=== PATIENT | female | born 1955 | race Caucasian/White ===

== ENCOUNTER 2017-01-02 13:28 | Inpatient (IN) | payer OTHER ==
--- NOTE | ~2017-01-02 | CN ---
Consultation Report [facility] [address] [place]. [address] NAME: RUPAL CHAN : 57 STATUS : ADM IN PAT#: [id number] AGE: 61 ADM/REG DATE : 01/02/17 MR#: [id number] REPORT SERV DATE: 01/08/17 DICTATED BY: BOYD WHITEHEAD DATE: 01/08/17 REPORT STATUS : Draft TRANSCRIBED BY: KEARA DATE: 01/08/17 PSYCHIATRIC CONSULTATION DATE OF CONSULTATION: 01/08/2017 I reviewed this patient's medical record. I discussed the patient's status with Dr. Lozano, who is her current hospitalist. HISTORY OF PRESENT ILLNESS: She was admitted with a flare-up of ulcerative colitis. I was asked to address depression. Apparently when Dr. Lozano saw this patient one or two days ago, she was tearful. The patient now explains that she was reacting to this newly diagnosed condition and to its persistence in spite of treatment. It is having a major impact on her lifestyle. PAST PSYCHIATRIC HISTORY: No preexisting psychiatric illness. SOCIAL HISTORY: She is single. She lives alone. She has one son and two grandchildren. She has a very active lifestyle. 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 She is also very involved with political organizations. FAMILY HISTORY: No psychiatric illness. MENTAL STATUS: She was very pleasant and cooperative in attitude. Her mood was somewhat saddened by the ongoing medical issues. Her affect was full and appropriate. Her thinking was logical. She had no delusions. She had no hallucinations. She was oriented to time, place, and person. She demonstrated good recent and remote memory. DIAGNOSIS: Depression, associated with newly diagnosed ulcerative colitis. RECOMMENDATIONS: Solu-Medrol might be contributing to her mood issues. I see no need for further psychiatric intervention. I will sign off. IZZY/KEARA Boyd Whitehead M.D. / [id number] CC: eKlli Lozano M.D. NO PCP
--- NOTE | ~2017-01-02 | DS ---
Discharge Summary [facility] [address] [place]. [address] NAME: RUPAL CHAN : 57 STATUS : ADM IN [facility]#: [id number] AGE: 61 ADM/REG DATE : 01/02/17 MR#: [id number] REPORT SERV DATE: 01/08/17 DICTATED BY: KELLI TAMEZ DATE: 01/07/17 REPORT STATUS : Draft TRANSCRIBED BY: MODL DATE: 01/07/17 ADMISSION DATE: 01/02/2017 DISCHARGE DATE: INTERIM DISCHARGE DIAGNOSES: Currently include, 1. Severe ulcerative colitis exacerbation. 2. Persistent nausea, vomiting, and diarrhea with bright blood per rectum. 3. Dehydration, resolved. 4. History of hypertension. 5. Hypothyroidism. 6. Anxiety disorder. 7. Steroid-induced hyperglycemia. 8. Upper respiratory infection. CONSULTANTS ON THE CASE: Dr. Murray, GI as well as Dr. Barnard, GI; Dr. Diaz, Surgery. PROCEDURES DONE DURING THIS HOSPITALIZATION: None. TESTS DONE DURING THIS HOSPITALIZATION: Include a CT scan of the abdomen and pelvis on 01/02/2017 showing significant diffuse colitis, much more progressive since beginning of the December 2016, but no evidence for abscess or perforation. The patient stools have been negative for bacterial pathogens, C. diff as well. HOSPITAL COURSE: This is a very pleasant 61-year-old female that she has recently diagnosed with severe ulcerative colitis. She initially saw Dr. Gibbs at the beginning of December for abdominal pain, nausea, and vomiting. Her symptoms have been occurring several months prior to admission. She ultimately underwent an EGD and colonoscopy by Dr. Murray on the 12/14/2016. EGD showed normal exam with gastric biopsies taken for H. pylori which were negative. She had also a colonoscopy that has shown that the patient has inflammatory bowel disease. The patient's pathology showed chronic colitis with moderate activity. She was discharged on steroids as well as Lialda. However, at discharge, she was transferred over to [facility]. The patient says that she has taken medications, however, her symptoms recurred, and as a result, she had become severely dehydrated with ongoing nausea, vomiting, diarrhea, multiple bowel movements, and she also has had a syncopal episode as a result of that. She has been admitted to [facility] on 01/02/2017. For further details, please see history and physical of Dr. Kelli Tamez. The patient has been placed on IV steroids and IV antibiotics. She also has been placed on Lialda and a GI consult as well as a Surgery consult has been requested. The patient's symptoms, however, did not improve that much. She has been advanced on her diet, but she still experienced intermittent nausea and vomiting. The patient may need an alpha-TNF agent and QuantiFERON gold test has been sent and that is awaiting. Currently it is questionable, if the patient might need to be started on Humira while she is here in hospital. It is also very important to note that the patient has significant anxiety disorder and depression. We are going to ask Dr. Fowler from Psychiatry Service to evaluate the patient for further recommendation. Discharge Summary [address] [place]. [address] NAME: RUPAL CHAN : 57 STATUS : ADM IN [facility]#: [id number] AGE: 61 ADM/REG DATE : 01/02/17 MR#: [id number] REPORT SERV DATE: 01/08/17 DICTATED BY: KELLI TAMEZ DATE: 01/07/17 REPORT STATUS : Draft TRANSCRIBED BY: KEARA DATE: 01/07/17 MEDICATIONS: Currently, medications at thisinterim discharge summary include Norvasc, Bentyl, Flonase, folic acid, Synthroid, Lialda, Solu-Medrol, Zofran, Protonix, Levaquin, Flagyl as well as Reglan. My partner is going to start seeing Ms Cedric Mckenzie from 01/09/2017. CF/MODL Kelli Tamez M.D. / [id number] CC: Kelli Tamez M.D.
--- NOTE | ~2017-01-02 | HP ---
History And Physical [place] [id number] [facility] [place]. [address] NAME: RUPAL CHAN : 57 STATUS : ADM IN [facility]#: [id number] AGE: 61 ADM/REG DATE : 01/02/17 MR#: [id number] REPORT SERV DATE: 01/02/17 DICTATED BY: KELLI LOZANO DATE: 01/02/17 REPORT STATUS : Draft TRANSCRIBED BY: MODL DATE: 01/02/17 DATE OF ADMISSION: 01/02/2017 CHIEF COMPLAINT: Intractable diarrhea, nausea, vomiting, dehydration, and syncope today. HISTORY OF PRESENT ILLNESS: This is a very pleasant 61-year-old female. She has a past medical history significant for recently diagnosed ulcerative colitis, hypothyroidism, prior history of peptic ulcer disease, and prior history of internal hemorrhoids, who has been presenting today to [facility] after she has been feeling extremely sick with intractable nausea, vomiting, and inability to keep anything down since last night. It is important to note that at the beginning of the month, she has been diagnosed with severe ulcerative colitis. She has been seen by GI. She had a colonoscopy and EGD. Her upper GI showed only active gastritis and colon biopsy showed chronic colitis with moderate activity. She has been discharged home on Colazal and Lialda, which she could not afford to buy as well as steroids that the patient she thinks make her sick and she kept having continuous intractable diarrhea with red blood per rectum, some abdominal discomfort and also since yesterday, nausea and vomiting. No hematemesis, melena, subjective chills. She has actually today had an episode of syncope while she was going into the kitchen, she passed out for a short period of time. She says that her diarrhea is relentless and she could not keep anything down. Because of her diarrhea, she lost significant weight since she has been diagnosed with ulcerative colitis. The patient denied any chest pain or increasing shortness of breath. No PND. No orthopnea but she has felt extremely weak and dizzy especially upon walking. The patient was supposed to see Dr. Diaz, her surgeon today but because of the ongoing nausea, vomiting, diarrhea as well as a syncopal episode, she decided to come to [facility] for further evaluation and treatment. Also noted today she took Prinivil this morning although her pressure was 136. She does not take Prinivil on a regular basis. Her pressure is well controlled, however, she did take her Prinivil this morning and as a result, the patient's pressure was dropping. The patient has been evaluated, as I said, in the emergency room and Hospitalist Service has been asked for admission, further evaluation, and treatment. PAST MEDICAL HISTORY: Significant for ulcerative colitis, hypothyroidism, and prior medical history of hypertension. PAST SURGICAL HISTORY: Significant for cervical cancer removal. SOCIAL HISTORY: Denies tobacco, alcohol, or IV drugs. FAMILY HISTORY: Significant for Crohn's disease and hypertension. MEDICATIONS: At home include Colazal; levothyroxine; prednisone; vitamin B12; fish oil; and vitamin D3 capsule. REVIEW OF SYSTEMS: A 14-point review of systems has been obtained and pertinent positive has been listed into the history. History And Physical [address] [address] NAME: RUPAL CHAN : 57 STATUS : ADM IN [facility]#: [id number] AGE: 61 ADM/REG DATE : 01/02/17 MR#: [id number] REPORT SERV DATE: 01/02/17 DICTATED BY: KELLI LOZANO DATE: 01/02/17 REPORT STATUS : Draft TRANSCRIBED BY: KEARA DATE: 01/02/17 PAST FAMILY HISTORY: Significant for hypertension and Crohn's disease. ALLERGIES: SHE IS ALLERGIC TO [employer] FAMILY. PHYSICAL EXAMINATION: VITAL SIGNS: The patient is afebrile. On arrival her pressure was 84/50, currently 115/50, heart rate 91, respiratory rate 18, saturating 94% on room air. GENERAL: She is a very pleasant, well-developed, well-nourished female, slightly anxious, in no acute distress. She is alert and oriented x3. Nonfocal. She follows all her commands appropriately. HEENT: Show pupils equal, round, and reactive to light. Extraocular movements intact. No JVD. No lymphadenopathy. No thyromegaly appreciated. CHEST: Evaluation shows bilateral air entry. Clear anteroposterior. No wheezes, crackles, or rhonchi appreciated. CARDIOVASCULAR: She has regular rate and rhythm. S1, S2 positive. No S3, no S4. No murmurs, rubs, or gallops appreciated. ABDOMEN: Soft, mildly tender. No guarding. No rebound. EXTREMITIES: No clubbing, cyanosis, or edema. NEUROLOGIC: She is alert and oriented x3. Nonfocal. She follows all her commands appropriately. LABORATORY DATA: Labs from today include sodium 138, potassium 2.5, chloride 97, CO2 of 28, BUN 10, creatinine 0.84. Glucose is 118. Total bilirubin is 0.55, alkaline phosphatase 53, ALT 16, AST 12, and lipase 113. Her white count is 7.7, hemoglobin 12.8, hematocrit 39.5, and platelets are 304. Her blood cultures are currently pending. Initial EKG shows no acute abnormalities. Chest x-ray is pending. ASSESSMENT AND PLAN: This is a very pleasant 61-year-old female with 1. Ulcerative colitis exacerbation with ongoing diarrhea, hematochezia, nausea, vomiting, and severe dehydration. 2. Diarrhea with nausea and vomiting. 3. Abdominal pain. 4. Hematochezia. 5. Hypotension, likely multifactorial. 6. Syncope, likely secondary to dehydration and hypotension. 7. Hypothyroidism. PLAN: 1. The patient is going to be admitted to Hospitalist Service. Vigorous IV hydration. Keep her n.p.o., place her on Protonix IV. Also start her on IV steroids and IV antibiotics. Check all her stools, pancultures, also stool for cultures, bacterial pathogen, fecal leukocytes, ova and parasites. We are going to consult GI for further recommendation as well. We will get a CAT scan of the abdomen and pelvis without contrast. 2. Hypotension likely multifactorial, most likely secondary to dehydration, possible infection. We are going to place her on broad-spectrum antibiotics. We are going to History And Physical [address] [address] NAME: RUPAL CHAN : 57 STATUS : ADM IN PAT#: [id number] AGE: 61 ADM/REG DATE : 01/02/17 MR#: [id number] REPORT SERV DATE: 01/02/17 DICTATED BY: KELLI LOZANO DATE: 01/02/17 REPORT STATUS : Draft TRANSCRIBED BY: MODSheela DATE: 01/02/17 give her stress doses of steroids since she is on chronic steroids at home. We are going to check her stools and get a CAT scan of the abdomen and pelvis without contrast. 3. Hypothyroidism. We will continue her home medications. 4. Hypokalemia. We will replace her electrolytes. We will provide reasonable pain and nausea control as well as GI and DVT prophylaxis with SCDs. That has been discussed extensively with the patient. All the questions have been answered in full. Further workup and recommendation pending above. CF/MODL Kelli Lozano M.D. / [id number] CC: Kelli Lozano M.D.
--- NOTE | ~2017-01-02 | DS ---
Discharge Summary [facility] [address] [place]. [address] NAME: RUPAL CHAN : 57 STATUS : DIS IN PAT#: [id number] AGE: 61 ADM/REG DATE : 01/02/17 MR#: [id number] REPORT SERV DATE: 01/13/17 DICTATED BY: MYNOR FERNANDEZ DATE: 01/12/17 REPORT STATUS : Draft TRANSCRIBED BY: MODL DATE: 01/12/17 ADMISSION DATE: 01/02/2017 DISCHARGE DATE: 01/12/2017 PCP: None. Used to be Dr. Albarran, however, she prefers to be going to our [facility]. CONSULTING PHYSICIAN: Ivory Diaz M.D. for Surgery; Dirk HOUGH for GI, Torie Keene M.D. Consulting physician, also Dr. Fowler for Psychiatry. FINAL DIAGNOSES: 1. Ulcerative colitis, exacerbation. 2. Nausea and vomiting, improved. 3. Hypertension. 4. Hypokalemia. 5. Hypophosphatemia. 6. Status post dehydration and syncope. 7. Hypothyroidism. 8. Noncompliance. HOSPITAL COURSE: Please refer to the H and P done by Dr. Kelli Lozano on 01/02/2017 and her interim discharge summary done on 01/08/2017. Since I took care of this patient, the patient has not been compliant even with the hospital medications saying that she gets nauseous, abdominal pain, diarrhea with different types of medications. Finally, she was placed on Humira, and the patient says that everything is better now and wants to go home. She said she is going to her parents place and wants a new PCP. GI has been following and they agreed for discharge. They would keep the patient on steroids and Humira and not on any sulfa drugs any more. The patient will be discharged with the above diagnosis. She will be on the following medications. Norvasc 5 mg a day, Levsin 0.125 mg before meals and at bedtime, levothyroxine 137 mcg a day, multivitamin once a day, Nystatin 5 mL every six hours, prednisone taper per GI recommendation, hydrocodone 5/325 one tab p.o. q.4 hours p.r.n. pain, and Xanax 0.25 mg p.o. t.i.d. p.r.n. anxiety. The patient will follow up with our [facility]. Then, follow up with Dr. Keene in two weeks for the second dose of the Humira. This has been explained to the patient, and she agreed and understood the plan. ZACHERY/KEARA Mynor Fernandez M.D. / [id number] CC: Discharge Summary [address] [address] NAME: RUPAL CHAN : 57 STATUS : DIS IN PAT#: [id number] AGE: 61 ADM/REG DATE : 01/02/17 MR#: [id number] REPORT SERV DATE: 01/13/17 DICTATED BY: MYNOR FERNANDEZ DATE: 01/12/17 REPORT STATUS : Draft TRANSCRIBED BY: KEARA DATE: 01/12/17 Mynor Fernandez M.D.
--- NOTE | ~2017-01-02 | CN ---
Consultation Report [facility] [address] [place]. [address] NAME: RUPAL CHAN : 57 STATUS : ADM IN PAT#: [id number] AGE: 61 ADM/REG DATE : 01/02/17 MR#: [id number] REPORT SERV DATE: 01/02/17 DICTATED BY: NAOMI RIVERA DATE: 01/02/17 REPORT STATUS : Draft TRANSCRIBED BY: MODL DATE: 01/02/17 GI CONSULTATION DATE OF CONSULTATION: 01/02/2017 REASON FOR CONSULTATION: Evaluation and management of nausea, vomiting, hematochezia, diarrhea, abdominal pain, and syncopal episode with newly diagnosed ulcerative colitis. HISTORY OF PRESENT ILLNESS: Ms. Chan is a pleasant 61-year-old female patient, who we initially saw on 12/13/2016 as she was admitted by Dr. Diaz for continuous abdominal pain and nausea with vomiting. At that time, she had given a history of several months' symptoms of nausea, vomiting, diarrhea, weight loss, and hematochezia. She ultimately underwent EGD and colonoscopy with Dr. Murray on 12/14/2016. EGD showed normal exam with gastric biopsies being taken for H pylori which were negative. She had a colonoscopy that same day, which showed diffuse severe inflammation in the rectum, sigmoid colon, descending colon, and transverse colon consistent with inflammatory bowel disease which was biopsied. She had nonbleeding internal hemorrhoids. Her pathology showed chronic colitis with moderate activity consistent with inflammatory bowel disease. She was on steroids as well as Lialda; however, at discharge, she was transferred over to [facility]. She is taking what she states is nine tablets a day as insurance will not pay for Lialda. She states that initially on discharge she was doing well. She has had some nausea, however, yesterday she began having extreme nausea and vomiting. She has been having diarrhea for the last one to two weeks. She states all hours of the night multiple bowel movements a day with blood. Left abdominal cramping. She denies fever, chills, or chest pain secondary to her syncopal episode. She was brought into the hospital by a friend. Hemoglobin is 12.8, hematocrit 39.5, white count 10.7. Potassium is 2.5, BUN 10, and creatinine 0.87. I have had a long discussion with her. We will start her on IV steroids and IV antibiotics as well as Lialda. We will discuss with Dr. Murray the possibility of patient having to be started on a biologic at some point in time. CT scan of the abdomen and pelvis has been ordered by the hospitalist, but not taken yet. PAST MEDICAL HISTORY: Hypothyroidism, anxiety, hemorrhoids, peptic ulcer disease, hypertension, and ulcerative colitis, newly diagnosed in 12/2016. SURGICAL HISTORY: Denies. FAMILY HISTORY: Cousin with Crohn disease. Mother and grandmother with colon polyps. SOCIAL HISTORY: Denies alcohol, tobacco, or illicits. ALLERGIES: TO THE [employer] FAMILY. HOME MEDICATIONS: Levothyroxine, Proventil, Zofran, Protonix, prednisone, and Colazal. Consultation Report [address] [place]. [address] NAME: RUPAL CHAN : 57 STATUS : ADM IN [facility]#: [id number] AGE: 61 ADM/REG DATE : 01/02/17 MR#: [id number] REPORT SERV DATE: 01/02/17 DICTATED BY: NAOMI RIVERA DATE: 01/02/17 REPORT STATUS : Draft TRANSCRIBED BY: MODSheela DATE: 01/02/17 REVIEW OF SYSTEMS: A 10-point review of systems has been obtained, being addressed in the history of present illness. PHYSICAL EXAMINATION: VITAL SIGNS: Temperature 98.3, pulse 93, respirations of 16, and blood pressure 84/50. GENERAL: Reveals an alert, female, resting in bed. No focal deficits noted. NEURO: She is cooperative, in no apparent distress. She is awake, alert, oriented x3. HEAD, EARS, EYES, NOSE, AND THROAT: Anicteric. Pupils equal, round, reactive to light and accommodation. Normocephalic and atraumatic. NECK: No JVD. No palpable nodes. Supple. LUNGS: Diminished in the bases. Clear in upper lobes. Normal respiratory effort exhibited. Equal expansion. CARDIOVASCULAR: Regular rate and rhythm S1, S2. No murmurs, rubs, gallops, S3 or S4 appreciated. ABDOMEN: Soft, nontender to palpation to the left side without rebound or guarding. She has active bowel sounds in all four quadrants. No organomegaly appreciated. EXTREMITIES: No edema. Normal distal pulses. SKIN: Warm, dry, and intact. PERTINENT LABORATORY DATA: Sodium 138, potassium 2.5, BUN is 10, creatinine 0.87. White count 10.7, hemoglobin 12.8, hematocrit is 39.5, platelet count 304. ASSESSMENT: 1. Newly diagnosed ulcerative colitis by biopsies proven on 12/14/2016. 2. Nausea with vomiting. 3. Diarrhea with hematochezia secondary to #1. 4. Syncopal episode. 5. Hypertension. 6. Hypokalemia with dehydration. PLAN: 1. We will begin her on Lialda. 2. Continue IV antibiotics started by the hospitalist as well as steroids via IV. 3. We will obtain stool studies. 4. Followup CT scan. 5. Questions if the patient will need to be on biologic in the future. We will go ahead and check hepatitis panel as well as a TB QuantiFERON gold in anticipation of this needing to be done in the future. We will follow. PATRICIA/KEARA Naomi Consultation Report [address] [place]. [address] NAME: RUPAL CHAN : 57 STATUS : ADM IN [facility]#: [id number] AGE: 61 ADM/REG DATE : 01/02/17 MR#: [id number] REPORT SERV DATE: 01/02/17 DICTATED BY: NAOMI RIVERA N DATE: 01/02/17 REPORT STATUS : Draft TRANSCRIBED BY: ANDREWL DATE: 01/02/17 CLAU Powell / [id number] CC: Kelli Lozano M.D.
--- NOTE | ~2017-01-02 | CN ---
Consultation Report [facility] [address] [place]. [address] NAME: RUPAL CHAN : 57 STATUS : ADM IN [facility]#: [id number] AGE: 61 ADM/REG DATE : 01/02/17 MR#: [id number] REPORT SERV DATE: 01/03/17 DICTATED BY: DALTON DIAZ DATE: 01/03/17 REPORT STATUS : Draft TRANSCRIBED BY: MODSheela DATE: 01/03/17 CONSULTATION DATE OF CONSULTATION: 01/03/2017 REASON FOR CONSULTATION: Concern over air in the bladder on CT scan. Rule out colovesicular fistula. HISTORY OF PRESENT ILLNESS: Ms. Chan is a 61-year-old female, who was recently diagnosed with severe ulcerative colitis with biopsies on 12/14/2016 when she was admitted to [facility]. She was discharged after IV steroids on p.o. mesalamine product which she could not afford. She has not been taking her medications because she thinks they "make her sick". Please see Dr. Lozano and Dr. Negro Powell's dictations for past medical history, past surgical history, allergies, medications, social history, and family history. REVIEW OF SYSTEMS: As stated in the HPI, otherwise, negative. PHYSICAL EXAMINATION: VITAL SIGNS: 98.6, 72, 18, 109/56. GENERAL: Alert, elderly white female, in no acute distress. HEENT: Normocephalic, atraumatic. EOMI. PERRLA. Oropharynx is clear. NECK: Supple. No lymphadenopathy. LUNGS: Clear to auscultation bilaterally. HEART: Regular rate and rhythm. ABDOMEN: Soft diffusely and mildly tender. No rebound or guarding. EXTREMITIES: Moves all extremities well. NEUROLOGIC: Cranial nerves 2 through 12 intact. No rashes. LABORATORY DATA: White count is 6.9 down from 10.7 on admission, H and H 10.6 and 32.9, and platelets of 252. Electrolytes within normal range. Creatinine is 0.76. Lactate was 0.8. Albumin is 2.0 with severe protein malnutrition. LFTs are normal. Her stool cultures are negative including C. difficile. Her hemoglobin A1c is elevated at 5.9, and the CT scan, which I have reviewed myself shows diffuse worsening pancolitis, this is worse than 12/14/2016. There is a single air bubble in the bladder which would be consistent with recent catheterization. The patient did have a Acosta catheter during her 12/14/2016 admission but has not been straight cathed since then. ASSESSMENT: Ulcerative colitis, concern for colovesicular fistula. PLAN: The patient is not symptomatic. She does not have any hematuria. It is highly unlikely that she would have a colovesicular fistula with a diagnosis of ulcerative colitis, however if this is Crohn's disease, it is possible. No surgical intervention is indicated at this time. All the inflammation needs to be treated medically and then the patient Consultation Report [facility] [address] [place]. [address] NAME: RUPAL CHAN : 57 STATUS : ADM IN [facility]#: [id number] AGE: 61 ADM/REG DATE : 01/02/17 MR#: [id number] REPORT SERV DATE: 01/03/17 DICTATED BY: DALTON DIAZ DATE: 01/03/17 REPORT STATUS : Draft TRANSCRIBED BY: KEARA DATE: 01/03/17 reimaged. If she still has any radiographic evidence of a colovesicular fistula, this can be handled as an outpatient with elective resection. Her followup with me as an outpatient is p.r.n. It is my pleasure participating in the care of your patient. ABRIL/KEARA Dalton Diaz M.D. / [id number] CC: Kelli Lozano M.D.
[2017-01-02 12:52] LABS: BASOPHILS 0.2 %; BASOPHILS ABSOLUTE 0.02 10/3/uL (0.0-0.16); EOSINOPHILS 0.6 %; EOSINOPHILS ABSOLUTE 0.06 10/3/uL (0.0-0.53); ER CBC TAT 0 Hrs 03 Mins; IMMATURE GRANULOCYTES 0.2 %; IMMATURE GRANULOCYTES ABSOLUTE 0.02 10/3/uL (0.0-0.11); LYMPHOCYTES 22.7 %; LYMPHOCYTES ABSOLUTE 2.43 10/3/uL (0.67-4.30); MEAN CORPUS HGB CONC 32.4 g/dL (32.0-36.0); MEAN CORPUSCULAR HEMOGLOB 25.6 pg (26.0-34.0); MEAN PLATELET VOLUME 9.6 fL (9.2-13.0); MONOCYTES 6.9 %; MONOCYTES ABSOLUTE 0.74 10/3/uL (0.21-1.20); NEUTROPHILS 69.4 %; NEUTROPHILS ABSOLUTE 7.45 10/3/uL (2.02-8.40); PLATELET COUNT 304 10/3/uL (150-400); RBC DISTRIBUTION WIDTH 16.2 % (12.0-16.0); WHITE BLOOD CELLS 10.7 10/3/uL (4.5-10.5)
[2017-01-02 12:53] LABS: HEMATOCRIT 39.5 % (36.0-48.0); HEMOGLOBIN 12.8 g/dL (12.0-16.0); MANUAL DIFF NO %
[2017-01-02 13:14] LABS: A/G RATIO 0.6 (0.7-1.9); ALBUMIN 2.6 G/DL (3.5-5.0); CALCIUM, SERUM 8.6 MG/DL (8.5-10.4); CO2 (CARBON DIOXIDE) 28 MMOL/L (24-34); CREATININE 0.87 MG/DL (0.55-1.02); GFR AFRICAN AMERICAN 84 ML/MIN (>=60); GFR NON AFRICAN AMERICAN 72 ML/MIN (>=60); GLOBULIN 4.1 G/DL (2.5-4.1); SGOT(AST) 12 U/L (5-40); SGPT(ALT) 16 U/L (5-65); SODIUM, SERUM 138 MMOL/L (135-148); TOTAL BILIRUBIN 0.5 MG/DL (0-1.2); TOTAL PROTEIN 6.7 G/DL (6.0-8.5)
[2017-01-02 13:22] LABS: ALKALINE PHOSPHATASE 53 U/L (45-117); BUN (BLOOD UREA NITROGEN) 10 MG/DL (6-23); CHLORIDE, SERUM 97 MMOL/L (96-112); GLUCOSE, SERUM 118 MG/DL (60-99); POTASSIUM, SERUM 2.5 MMOL/L (3.5-5.3)
[~2017-01-02 13:28] MED LIST: LEVOTHYROXIN137 MCG PO; LIALDA1.2 GM PO; P20 PO; PRIN5 PO; PROTONIX PO; ZOFRAN4 PO
[2017-01-02] MEDS ORDERED: LEVOTHYROXIN137 MCG PO (14:10)
[2017-01-02] MEDS ORDERED: VITAMIN B12 TABLET PO (14:10)
[2017-01-02] MEDS ORDERED: COLAZAL 750 MG750 MG PO (14:10)
[2017-01-02] MEDS ORDERED: P20 PO (14:10)
[2017-01-02] MEDS ORDERED: VITAMIN D PO (14:11)
[2017-01-02] MEDS ORDERED: FISH OIL PO (14:11)
[2017-01-02 22:54] LABS: INTERNATIONAL NORMAL RATI 1.5 UNITS (-); PROTIME (NOT ORD) 17.5 SEC (12.0-14.5)
[2017-01-02 22:55] LABS: PARTIAL THROMBO TIME 31.8 SEC (22.5-37.2)
[2017-01-02 23:09] LABS: FERRITIN 62 NG/ML (8-252); FREE T4 1.82 NG/DL (0.76-1.46); IRON BINDING CAPACITY 204 MCG/DL (225-410); IRON, SERUM 11 MCG/DL (35-150); PHOSPHORUS, SERUM 2.1 MG/DL (2.5-4.5); TROPONIN I <0.02 NG/ML (<0.05)
[2017-01-02 23:12] LABS: ULTRASENSITIVE TSH 0.453 MCIU/ML (0.358-3.740)
[2017-01-03 06:17] LABS: BASOPHILS 0 %; EOSINOPHILS 0 %; HEMOGLOBIN 10.6 g/dL (12.0-16.0); IMMATURE GRANULOCYTES 0.1 %; IMMATURE GRANULOCYTES ABSOLUTE 0.01 10/3/uL (0.0-0.11); LYMPHOCYTES ABSOLUTE 0.83 10/3/uL (0.67-4.30); MEAN CORPUS HGB CONC 32.2 g/dL (32.0-36.0); MEAN CORPUSCULAR HEMOGLOB 26.2 pg (26.0-34.0); MEAN CORPUSCULAR VOLUME 81.2 fL (80-100); MEAN PLATELET VOLUME 9.1 fL (9.2-13.0); MONOCYTES 3.9 %; MONOCYTES ABSOLUTE 0.27 10/3/uL (0.21-1.20); NEUTROPHILS ABSOLUTE 5.83 10/3/uL (2.02-8.40); PLATELET COUNT 252 10/3/uL (150-400); RBC DISTRIBUTION WIDTH 16.1 % (12.0-16.0); RED CELL COUNT 4.05 10/6/uL (4.0-5.6); WHITE BLOOD CELLS 6.9 10/3/uL (4.5-10.5)
[2017-01-03 06:20] LABS: HEMATOCRIT 32.9 % (36.0-48.0); MANUAL DIFF NO %
[2017-01-03 06:29] LABS: A/G RATIO 0.5 (0.7-1.9); ALKALINE PHOSPHATASE 45 U/L (45-117); BUN (BLOOD UREA NITROGEN) 7 MG/DL (6-23); CALCIUM, SERUM 8.1 MG/DL (8.5-10.4); CHLORIDE, SERUM 107 MMOL/L (96-112); CO2 (CARBON DIOXIDE) 25 MMOL/L (24-34); CREATININE 0.76 MG/DL (0.55-1.02); DIRECT BILIRUBIN 0.1 MG/DL (0.0-0.4); GFR AFRICAN AMERICAN 99 ML/MIN (>=60); GFR NON AFRICAN AMERICAN 85 ML/MIN (>=60); GLOBULIN 3.8 G/DL (2.5-4.1); INDIRECT BILIRUBIN(NOT ORDER) 0.4 MG/DL (0.1-0.9); SGOT(AST) 10 U/L (5-40); SGPT(ALT) 9 U/L (5-65); SODIUM, SERUM 144 MMOL/L (135-148); TOTAL BILIRUBIN 0.5 MG/DL (0-1.2); TOTAL PROTEIN 5.8 G/DL (6.0-8.5)
[2017-01-03 06:31] LABS: POTASSIUM, SERUM 3.8 MMOL/L (3.5-5.3)
[2017-01-03 06:32] LABS: GLUCOSE, SERUM 192 MG/DL (60-99)
[2017-01-03 11:05] LABS: FOLATE 17.4 NG/ML (>5.2)
[2017-01-03 13:10] LABS: HEPATITIS B SURFACE ANTIGEN NON-REACTIVE (NON-REACT)
[2017-01-03 13:34] LABS: HEPATITIS C ANTIBODY NON-REACTIVE (NON-REACT)
[2017-01-03 13:35] LABS: HEPATITIS B CORE AB IGM NON-REACTIVE (NON-REAC)
[2017-01-03 13:38] LABS: HEP A ANTIBODY IGM NON-REACTIVE (NON-REACT); HIV COMBO NON-REACTIVE (NON REAC)
[2017-01-04 05:57] LABS: BASOPHILS 0.1 %; BASOPHILS ABSOLUTE 0.01 10/3/uL (0.0-0.16); EOSINOPHILS 0 %; HEMATOCRIT 33.1 % (36.0-48.0); HEMOGLOBIN 10.5 g/dL (12.0-16.0); IMMATURE GRANULOCYTES 0.7 %; IMMATURE GRANULOCYTES ABSOLUTE 0.05 10/3/uL (0.0-0.11); LYMPHOCYTES 16.2 %; LYMPHOCYTES ABSOLUTE 1.15 10/3/uL (0.67-4.30); MEAN CORPUS HGB CONC 31.7 g/dL (32.0-36.0); MEAN CORPUSCULAR HEMOGLOB 25.9 pg (26.0-34.0); MEAN CORPUSCULAR VOLUME 81.5 fL (80-100); MEAN PLATELET VOLUME 9.2 fL (9.2-13.0); MONOCYTES 9.7 %; MONOCYTES ABSOLUTE 0.69 10/3/uL (0.21-1.20); NEUTROPHILS 73.3 %; NEUTROPHILS ABSOLUTE 5.19 10/3/uL (2.02-8.40); PLATELET COUNT 269 10/3/uL (150-400); RBC DISTRIBUTION WIDTH 16.1 % (12.0-16.0); RED CELL COUNT 4.06 10/6/uL (4.0-5.6); WHITE BLOOD CELLS 7.1 10/3/uL (4.5-10.5)
[2017-01-04 06:07] LABS: BUN (BLOOD UREA NITROGEN) 4 MG/DL (6-23); CALCIUM, SERUM 8.5 MG/DL (8.5-10.4); CHLORIDE, SERUM 108 MMOL/L (96-112); CO2 (CARBON DIOXIDE) 26 MMOL/L (24-34); CREATININE 0.71 MG/DL (0.55-1.02); GFR AFRICAN AMERICAN 107 ML/MIN (>=60); GFR NON AFRICAN AMERICAN 93 ML/MIN (>=60); GLUCOSE, SERUM 204 MG/DL (60-99); PHOSPHORUS, SERUM 1.8 MG/DL (2.5-4.5); POTASSIUM, SERUM 3.8 MMOL/L (3.5-5.3); SODIUM, SERUM 144 MMOL/L (135-148)
[2017-01-04 06:11] LABS: MANUAL DIFF NO %
[2017-01-05 06:05] LABS: BASOPHILS 0.1 %; BASOPHILS ABSOLUTE 0.01 10/3/uL (0.0-0.16); EOSINOPHILS 0 %; HEMATOCRIT 32.1 % (36.0-48.0); HEMOGLOBIN 10.4 g/dL (12.0-16.0); IMMATURE GRANULOCYTES 0.5 %; IMMATURE GRANULOCYTES ABSOLUTE 0.04 10/3/uL (0.0-0.11); LYMPHOCYTES 9.3 %; LYMPHOCYTES ABSOLUTE 0.75 10/3/uL (0.67-4.30); MEAN CORPUS HGB CONC 32.4 g/dL (32.0-36.0); MEAN CORPUSCULAR HEMOGLOB 26.3 pg (26.0-34.0); MEAN CORPUSCULAR VOLUME 81.3 fL (80-100); MEAN PLATELET VOLUME 9.4 fL (9.2-13.0); MONOCYTES 5.2 %; MONOCYTES ABSOLUTE 0.42 10/3/uL (0.21-1.20); NEUTROPHILS 84.9 %; NEUTROPHILS ABSOLUTE 6.88 10/3/uL (2.02-8.40); PLATELET COUNT 253 10/3/uL (150-400); RED CELL COUNT 3.95 10/6/uL (4.0-5.6); WHITE BLOOD CELLS 8.1 10/3/uL (4.5-10.5)
[2017-01-05 06:10] LABS: MANUAL DIFF NO %
[2017-01-05 06:21] LABS: BUN (BLOOD UREA NITROGEN) 4 MG/DL (6-23); CALCIUM, SERUM 8.2 MG/DL (8.5-10.4); CHLORIDE, SERUM 106 MMOL/L (96-112); CO2 (CARBON DIOXIDE) 26 MMOL/L (24-34); GFR AFRICAN AMERICAN 109 ML/MIN (>=60); GFR NON AFRICAN AMERICAN 94 ML/MIN (>=60); GLUCOSE, SERUM 202 MG/DL (60-99); POTASSIUM, SERUM 4.2 MMOL/L (3.5-5.3); SODIUM, SERUM 141 MMOL/L (135-148)
[2017-01-06 06:34] LABS: HEMATOCRIT 34.6 % (36.0-48.0); HEMOGLOBIN 11.2 g/dL (12.0-16.0); MEAN CORPUS HGB CONC 32.4 g/dL (32.0-36.0); MEAN CORPUSCULAR HEMOGLOB 26.2 pg (26.0-34.0); MEAN PLATELET VOLUME 9.4 fL (9.2-13.0); PLATELET COUNT 256 10/3/uL (150-400); RED CELL COUNT 4.27 10/6/uL (4.0-5.6); WHITE BLOOD CELLS 8.5 10/3/uL (4.5-10.5)
[2017-01-06 06:36] LABS: MANUAL DIFF YES %
[2017-01-06 06:47] LABS: BUN (BLOOD UREA NITROGEN) 6 MG/DL (6-23); CALCIUM, SERUM 8.1 MG/DL (8.5-10.4); CHLORIDE, SERUM 105 MMOL/L (96-112); CREATININE 0.53 MG/DL (0.55-1.02); GFR AFRICAN AMERICAN 120 ML/MIN (>=60); GFR NON AFRICAN AMERICAN 103 ML/MIN (>=60); GLUCOSE, SERUM 194 MG/DL (60-99); SODIUM, SERUM 138 MMOL/L (135-148)
[2017-01-06 06:52] LABS: CO2 (CARBON DIOXIDE) 21 MMOL/L (24-34)
[2017-01-06 07:28] LABS: BAND NEUTROPHILS 30 %; LYMPHOCYTES 11 %; LYMPHOCYTES ABSOLUTE (CALC) 0.94 10/3/uL (0.67-4.30); MONOCYTES 1 %; MONOCYTES ABSOLUTE (CALC) 0.09 10/3/uL (0.21-1.20); NEUTROPHILS ABSOLUTE (CALC) 7.48 10/3/uL (2.02-8.40); PLATELET ESTIMATE ADQ (ADEQUATE); RBC MORPHOLOGY NORM (NORMAL); SEGMENTED NEUTROPHIL (0) 58 %; TOTAL NUCLEATED CELLS 100
[2017-01-06 14:31] LABS: QUANTIFERON MITOGEN (MG NIL) 2.98 IU/mL (()); QUANTIFERON NIL 0.07 IU/mL (()); QUANTIFERON TB GOLD Negative (NEG)
[2017-01-07 04:30] LABS: HEMATOCRIT 35.2 % (36.0-48.0); HEMOGLOBIN 11.5 g/dL (12.0-16.0); MEAN CORPUS HGB CONC 32.7 g/dL (32.0-36.0); MEAN CORPUSCULAR HEMOGLOB 26.1 pg (26.0-34.0); MEAN CORPUSCULAR VOLUME 79.8 fL (80-100); MEAN PLATELET VOLUME 9.3 fL (9.2-13.0); PLATELET COUNT 283 10/3/uL (150-400); RED CELL COUNT 4.41 10/6/uL (4.0-5.6); WHITE BLOOD CELLS 11.6 10/3/uL (4.5-10.5)
[2017-01-07 04:32] LABS: MANUAL DIFF YES %
[2017-01-07 04:44] LABS: BUN (BLOOD UREA NITROGEN) 4 MG/DL (6-23); CALCIUM, SERUM 8.1 MG/DL (8.5-10.4); CHLORIDE, SERUM 101 MMOL/L (96-112); CO2 (CARBON DIOXIDE) 24 MMOL/L (24-34); CREATININE 0.63 MG/DL (0.55-1.02); GFR AFRICAN AMERICAN 113 ML/MIN (>=60); GFR NON AFRICAN AMERICAN 97 ML/MIN (>=60); GLUCOSE, SERUM 222 MG/DL (60-99); POTASSIUM, SERUM 3.8 MMOL/L (3.5-5.3); SODIUM, SERUM 135 MMOL/L (135-148)
[2017-01-07 04:50] LABS: BAND NEUTROPHILS 19 %; LYMPHOCYTES 7 %; LYMPHOCYTES ABSOLUTE (CALC) 0.81 10/3/uL (0.67-4.30); MONOCYTES 2 %; MONOCYTES ABSOLUTE (CALC) 0.23 10/3/uL (0.21-1.20); NEUTROPHILS ABSOLUTE (CALC) 10.56 10/3/uL (2.02-8.40); OVALOCYTES 1+ (3-10/OIF) (0-2/OIF); POIKILOCYTOSIS 1+ (5-10/OIF) (0-5/OIF); SEGMENTED NEUTROPHIL (0) 72 %; TOTAL NUCLEATED CELLS 100
[2017-01-08 08:11] LABS: HEMATOCRIT 35.3 % (36.0-48.0); HEMOGLOBIN 11.7 g/dL (12.0-16.0); MEAN CORPUS HGB CONC 33.1 g/dL (32.0-36.0); MEAN CORPUSCULAR HEMOGLOB 26.3 pg (26.0-34.0); MEAN CORPUSCULAR VOLUME 79.3 fL (80-100); MEAN PLATELET VOLUME 9.1 fL (9.2-13.0); PLATELET COUNT 277 10/3/uL (150-400); RED CELL COUNT 4.45 10/6/uL (4.0-5.6)
[2017-01-08 08:13] LABS: MANUAL DIFF YES %; WHITE BLOOD CELLS 16.3 10/3/uL (4.5-10.5)
[2017-01-08 08:16] LABS: BUN (BLOOD UREA NITROGEN) 7 MG/DL (6-23); CALCIUM, SERUM 8.3 MG/DL (8.5-10.4); CHLORIDE, SERUM 100 MMOL/L (96-112); CO2 (CARBON DIOXIDE) 27 MMOL/L (24-34); CREATININE 0.56 MG/DL (0.55-1.02); GFR AFRICAN AMERICAN 117 ML/MIN (>=60); GFR NON AFRICAN AMERICAN 101 ML/MIN (>=60); GLUCOSE, SERUM 212 MG/DL (60-99); PHOSPHORUS, SERUM 2.2 MG/DL (2.5-4.5); POTASSIUM, SERUM 3.4 MMOL/L (3.5-5.3); SODIUM, SERUM 136 MMOL/L (135-148)
[2017-01-08 09:53] LABS: BAND NEUTROPHILS 18 %; LYMPHOCYTES 4 %; LYMPHOCYTES ABSOLUTE (CALC) 0.65 10/3/uL (0.67-4.30); NEUTROPHILS ABSOLUTE (CALC) 15.65 10/3/uL (2.02-8.40); PLATELET ESTIMATE ADQ (ADEQUATE); RBC MORPHOLOGY NORM (NORMAL); SEGMENTED NEUTROPHIL (0) 78 %; TOTAL NUCLEATED CELLS 100
[2017-01-09 06:18] LABS: HEMATOCRIT 32.8 % (36.0-48.0); HEMOGLOBIN 10.8 g/dL (12.0-16.0); MEAN CORPUS HGB CONC 32.9 g/dL (32.0-36.0); MEAN CORPUSCULAR HEMOGLOB 25.7 pg (26.0-34.0); MEAN CORPUSCULAR VOLUME 77.9 fL (80-100); MEAN PLATELET VOLUME 8.9 fL (9.2-13.0); PLATELET COUNT 292 10/3/uL (150-400); RBC DISTRIBUTION WIDTH 15.9 % (12.0-16.0); RED CELL COUNT 4.21 10/6/uL (4.0-5.6); WHITE BLOOD CELLS 15.6 10/3/uL (4.5-10.5)
[2017-01-09 06:19] LABS: MANUAL DIFF YES %
[2017-01-09 06:43] LABS: A/G RATIO 0.5 (0.7-1.9); ALKALINE PHOSPHATASE 45 U/L (45-117); BUN (BLOOD UREA NITROGEN) 6 MG/DL (6-23); CALCIUM, SERUM 7.4 MG/DL (8.5-10.4); CHLORIDE, SERUM 100 MMOL/L (96-112); CO2 (CARBON DIOXIDE) 26 MMOL/L (24-34); CREATININE 0.48 MG/DL (0.55-1.02); GFR AFRICAN AMERICAN 124 ML/MIN (>=60); GFR NON AFRICAN AMERICAN 107 ML/MIN (>=60); GLOBULIN 3.2 G/DL (2.5-4.1); SGOT(AST) 13 U/L (5-40); SGPT(ALT) 7 U/L (5-65); SODIUM, SERUM 137 MMOL/L (135-148); TOTAL BILIRUBIN 0.3 MG/DL (0-1.2); TOTAL PROTEIN 4.7 G/DL (6.0-8.5)
[2017-01-09 06:49] LABS: ALBUMIN 1.5 G/DL (3.5-5.0); BAND NEUTROPHILS 50 %; GLUCOSE, SERUM 130 MG/DL (60-99); LYMPHOCYTES 1 %; LYMPHOCYTES ABSOLUTE (CALC) 0.16 10/3/uL (0.67-4.30); NEUTROPHILS ABSOLUTE (CALC) 15.44 10/3/uL (2.02-8.40); PHOSPHORUS, SERUM 1.4 MG/DL (2.5-4.5); POTASSIUM, SERUM 2.7 MMOL/L (3.5-5.3); SEGMENTED NEUTROPHIL (0) 49 %; TOTAL NUCLEATED CELLS 100
[2017-01-09 07:00] LABS: PLATELET ESTIMATE ADQ (ADEQUATE)
[2017-01-09 07:03] LABS: RBC MORPHOLOGY NORM (NORMAL); TOXIC GRANULATION 2+
[2017-01-10 06:42] LABS: HEMATOCRIT 33.2 % (36.0-48.0); MANUAL DIFF YES %; MEAN CORPUS HGB CONC 33.1 g/dL (32.0-36.0); MEAN CORPUSCULAR HEMOGLOB 26.1 pg (26.0-34.0); MEAN CORPUSCULAR VOLUME 78.7 fL (80-100); MEAN PLATELET VOLUME 8.7 fL (9.2-13.0); PLATELET COUNT 319 10/3/uL (150-400); RBC DISTRIBUTION WIDTH 16.2 % (12.0-16.0); RED CELL COUNT 4.22 10/6/uL (4.0-5.6); WHITE BLOOD CELLS 15.7 10/3/uL (4.5-10.5)
[2017-01-10 07:03] LABS: BUN (BLOOD UREA NITROGEN) 6 MG/DL (6-23); CALCIUM, SERUM 7.5 MG/DL (8.5-10.4); CHLORIDE, SERUM 99 MMOL/L (96-112); CO2 (CARBON DIOXIDE) 26 MMOL/L (24-34); GFR AFRICAN AMERICAN 122 ML/MIN (>=60); GFR NON AFRICAN AMERICAN 105 ML/MIN (>=60); GLUCOSE, SERUM 119 MG/DL (60-99); PHOSPHORUS, SERUM 1.7 MG/DL (2.5-4.5); SODIUM, SERUM 136 MMOL/L (135-148)
[2017-01-10 07:07] LABS: POTASSIUM, SERUM 3.3 MMOL/L (3.5-5.3)
[2017-01-10 07:15] LABS: BAND NEUTROPHILS 53 %; IMMATURE GRANS ABSOLUTE (CALC) 0.31 10/3/uL (0.0-0.11); LYMPHOCYTES 7 %; METAMYELOCYTES 2 %; MONOCYTES 2 %; MONOCYTES ABSOLUTE (CALC) 0.31 10/3/uL (0.21-1.20); NEUTROPHILS ABSOLUTE (CALC) 13.97 10/3/uL (2.02-8.40); PLATELET ESTIMATE ADQ (ADEQUATE); RBC MORPHOLOGY NORM (NORMAL); SEGMENTED NEUTROPHIL (0) 36 %; TOTAL NUCLEATED CELLS 100
[2017-01-10 17:29] LABS: POTASSIUM, SERUM 3.8 MMOL/L (3.5-5.3)
[2017-01-10 17:30] LABS: PHOSPHORUS, SERUM 2.6 MG/DL (2.5-4.5)
[2017-01-11 06:43] LABS: BUN (BLOOD UREA NITROGEN) 4 MG/DL (6-23); CALCIUM, SERUM 7.5 MG/DL (8.5-10.4); CHLORIDE, SERUM 100 MMOL/L (96-112); CO2 (CARBON DIOXIDE) 24 MMOL/L (24-34); CREATININE 0.42 MG/DL (0.55-1.02); GFR AFRICAN AMERICAN 129 ML/MIN (>=60); GFR NON AFRICAN AMERICAN 111 ML/MIN (>=60); GLUCOSE, SERUM 106 MG/DL (60-99); PHOSPHORUS, SERUM 1.8 MG/DL (2.5-4.5); POTASSIUM, SERUM 3.6 MMOL/L (3.5-5.3); SODIUM, SERUM 135 MMOL/L (135-148)
[2017-01-12 06:56] LABS: HEMOGLOBIN 10.6 g/dL (12.0-16.0); MEAN CORPUS HGB CONC 33.1 g/dL (32.0-36.0); MEAN CORPUSCULAR HEMOGLOB 25.9 pg (26.0-34.0); MEAN PLATELET VOLUME 8.4 fL (9.2-13.0); PLATELET COUNT 329 10/3/uL (150-400); RBC DISTRIBUTION WIDTH 16.2 % (12.0-16.0); WHITE BLOOD CELLS 15.2 10/3/uL (4.5-10.5)
[2017-01-12 06:57] LABS: MANUAL DIFF YES %
[2017-01-12 07:14] LABS: BUN (BLOOD UREA NITROGEN) 2 MG/DL (6-23); CALCIUM, SERUM 7.4 MG/DL (8.5-10.4); CHLORIDE, SERUM 96 MMOL/L (96-112); CO2 (CARBON DIOXIDE) 26 MMOL/L (24-34); CREATININE 0.44 MG/DL (0.55-1.02); GFR AFRICAN AMERICAN 127 ML/MIN (>=60); GFR NON AFRICAN AMERICAN 110 ML/MIN (>=60); GLUCOSE, SERUM 115 MG/DL (60-99); PHOSPHORUS, SERUM 1.4 MG/DL (2.5-4.5); POTASSIUM, SERUM 3.9 MMOL/L (3.5-5.3); SODIUM, SERUM 133 MMOL/L (135-148)
[2017-01-12 07:39] LABS: BAND NEUTROPHILS 44 %; IMMATURE GRANS ABSOLUTE (CALC) 0.15 10/3/uL (0.0-0.11); LYMPHOCYTES 5 %; LYMPHOCYTES ABSOLUTE (CALC) 0.76 10/3/uL (0.67-4.30); METAMYELOCYTES 1 %; MONOCYTES 5 %; MONOCYTES ABSOLUTE (CALC) 0.76 10/3/uL (0.21-1.20); NEUTROPHILS ABSOLUTE (CALC) 13.53 10/3/uL (2.02-8.40); PLATELET ESTIMATE ADQ (ADEQUATE); SEGMENTED NEUTROPHIL (0) 45 %; TOTAL NUCLEATED CELLS 100
[2017-01-12 07:40] LABS: RBC MORPHOLOGY NORM (NORMAL); TOXIC GRANULATION 1+
[2017-01-12] MEDS ORDERED: NORV5 PO (10:34)
[2017-01-12] MEDS ORDERED: LEVSINTAB PO (10:35)
[2017-01-12] MEDS ORDERED: MVI PO (10:37)
[2017-01-12] MEDS ORDERED: NYS500UDL PO (10:38)
[2017-01-12] MEDS ORDERED: P10 PO (10:39)
[2017-01-12] MEDS ORDERED: X25 PO (10:41)
[2017-01-12] MEDS ORDERED: NORCO1 TA1 PO (10:41)
== END 2017-01-12 12:49 | disposition home or self-care (01) | DRG 385 ==
LOC: ER 13:28 → 5SO 16:38
PROVIDERS: Emergency Medicine; Internal Medicine; Nurse Practitioner Family
DX: K51.011 Ulcerative (chronic) pancolitis with rectal bleeding (principal); E43 Unspecified severe protein-calorie malnutrition; I10 Essential (primary) hypertension; E03.9 Hypothyroidism, unspecified; E86.0 Dehydration; E87.6 Hypokalemia; F41.9 Anxiety disorder, unspecified; F32.89 Other specified depressive episodes; R73.9 Hyperglycemia, unspecified; T38.0X5A Adverse effect of glucocorticoids and synthetic analogues, initial encounter; J06.9 Acute upper respiratory infection, unspecified; Z68.24 Body mass index [BMI] 24.0-24.9, adult; Z87.11 Personal history of peptic ulcer disease; Z79.899 Other long term (current) drug therapy; Z79.52 Long term (current) use of systemic steroids
CPT/HCPCS: 71010; 74176; 80048; 80053; 80074; 82248; 82272; 82607; 82728; 82746; 83036; 83540; 83550; 83605; 83615; 83690; 83735; 84100; 84132; 84439; 84443; 84484; 85025; 85610; 85730; 86480; 87040; 87045; 87046; 87046-59; 87328; 87329; 87389; 87493; 87493-59; 87899; 87899-59; 89055; 93005; 96374; 96376; 97116-GP; 97161-GP; 99285; A9270-GY; J0360; J1956; J2405; J2765; J2930

== ENCOUNTER 2017-02-11 13:24 | Inpatient (IN) | payer OTHER ==
--- NOTE | ~2017-02-11 | HP ---
History And Physical [address] [place]. [address] NAME: RUPAL CHAN : 57 STATUS : ADM IN [facility]#: [id number] AGE: 62 ADM/REG DATE : 02/11/17 MR#: [id number] REPORT SERV DATE: 02/11/17 DICTATED BY: SHYANN NORWOOD DATE: 02/11/17 REPORT STATUS : Draft TRANSCRIBED BY: MODSheela DATE: 02/11/17 DATE OF ADMISSION: 02/11/2017 CHIEF COMPLAINT: Abdominal discomfort. HISTORY OF PRESENT ILLNESS: This is a 62 years old female with a past medical history of ulcerative colitis; being followed by Dr. Torie Keene, GI physician as an outpatient, also primary care is Dr. Petr Kirby; for which the patient states she recently completed antibiotics approximately 6 or 7 days ago for urinary tract infection. The patient was recently discharged from the hospital on 01/12/2017 for ulcerative colitis exacerbation, and nausea and vomiting. The patient was ready for discharge at that time and returned to home. The patient states that she was eating after being discharged and then after several days, she had a decreased appetite and later began to have dry heaves. She tried to treat herself with some Ensure and Pedialyte, but continued to have nausea and vomiting, and now has had no oral intake. She continues to have acute on chronic diarrhea, have brown stool. She was seen at the ER, with Hemoccult-positive brown stool. She has a complaint of some generalized abdominal discomfort more so, suprapubic area and left lower quadrant. She had a positive urinalysis in the ER and a urine culture was sent by Dr. Burgess, ER physician. Dr. Burgess also ordered a CT of the abdomen and pelvis that showed some improvement of her colitis in the descending colon. The patient requires some IV fluid bolusing for dehydration and mild hypotension in the ER. She denies any fevers, but has as chills. Positive dysuria. No chest pain. Generalized weakness. REVIEW OF SYSTEMS: Please refer to HPI. PAST MEDICAL HISTORY: Ulcerative colitis, hypertension, hypothyroidism, peptic ulcer disease, internal hemorrhoids. PAST SURGICAL HISTORY: Cervical cancer removal. SOCIAL HISTORY: No tobacco, alcohol, or illicit drugs. FAMILY HISTORY: Hypertension and Crohn's. ALLERGIES: TO ANY SANTOS DRUG SUCH PROPARACAINE PER PATIENT. HOME MEDICATIONS: Humira 40 mg subcu every other week, vitamin B12 1000 mcg p.o. daily, Lomotil 3 times a day, hydrocortisone suppository at bedtime, Levsin 0.1 mg p.o. before meals and at bedtime, levothyroxine 137 mcg p.o. daily, multivitamin, Zofran 8 mg p.o. q.6 hours p.r.n., prednisone 10 mg p.o. daily 48 hours, one application per rectum at bedtime, Imodium liquid p.r.n. Please refer to medication list per Pharmacy, which apparently may be incomplete. PHYSICAL EXAMINATION: VITAL SIGNS: Temp of 98.9, blood pressure 122/58 with a pulse initially of 120, now has History And Physical [address] [address] NAME: RUPAL CHAN : 57 STATUS : ADM IN [facility]#: [id number] AGE: 62 ADM/REG DATE : 02/11/17 MR#: [id number] REPORT SERV DATE: 02/11/17 DICTATED BY: SHYANN NORWOOD DATE: 02/11/17 REPORT STATUS : Draft TRANSCRIBED BY: KEARA DATE: 02/11/17 come down to around 98, respiration of 18, and saturating 100%. GENERAL: The patient is alert and oriented x3, very pleasant, communicates well. HEENT: Pupils equal, round, and reactive to light. Extraocular muscles are intact. Anicteric sclerae. CARDIOVASCULAR: S1, S2. No appreciated rubs or gallops. No appreciated JVD. Regular rate and rhythm. RESPIRATORY: Clear to auscultation bilaterally. No wheezes or crackles. No signs of tachypnea. ABDOMEN: Positive bowel sounds. Soft, with tender to palpation over the suprapubic area and left lower quadrant. No rebound. No abdominal distention. EXTREMITIES: 2+ pulses bilaterally with 1+ pitting edema bilaterally. NEURO: Cranial nerves 2 through 12 grossly intact. No neuro focal deficits appreciated. LABS: A CT of the abdomen and pelvis without contrast showing subtle edema in the descending colon consistent with ongoing colitis, but better or improved from 01/02/2017. The patient developed some body anasarca which is mild. No acute GI or obstruction seen and read by Dr. Argueta. Chest x-ray with no active acute infiltrate. Sodium 127, potassium 4.6, chloride of 88, bicarb 29, BUN of 12, creatinine 0.46 with a glucose of 123 calcium of 7.4, albumin of 0.9, globulin of 4.3, T bilirubin of 0.7, alkaline phosphatase of 163, ALT 15, AST of 14, lipase of 27. Troponin less than 0.02. Lactate of 2.9. White cell count of 27.4 with a hemoglobin of 9.1, platelet count of 452. UA with specific gravity 1.01, a large amount of leukocyte esterase, positive amount of nitrites, greater than 182 white blood cells, with some clots. EKG, sinus tachycardia with a ventricular rate of 122. No ST elevation. ASSESSMENT/PLAN: 1. Urinary tract infection. 2. Hyponatremia. 3. Abdominal pain with mild improving colitis. 4. Diarrhea. 5. Intravascular depletion. 6. Malnutrition. 7. The patient will be admitted to Dr. Carroll, and we will continue with IV antibiotics and also closely monitor electrolytes for improvement. The patient did have a urine culture. Dr. Carroll to follow up on results. Also, we would check an SPEP for lab abnormalities, low albumin, high globulin most likely some secondary malnutrition. Also considering the patient is on Humira, SPEP will be followed up by Dr. Carroll. [facility]/KEARA Shyann Coe History And Physical [address] [address] NAME: RUPAL CHAN : 56 STATUS : ADM IN [facility]#: [id number] AGE: 62 ADM/REG DATE : 02/11/17 MR#: [id number] REPORT SERV DATE: 02/11/17 DICTATED BY: SHYANN NORWOOD DATE: 02/11/17 REPORT STATUS : Draft TRANSCRIBED BY: MODSheela DATE: 02/11/17 Erasmo Norwood / [id number] CC: Erasmo Thomash A Kirby, D.O.
--- NOTE | ~2017-02-11 | OP ---
Record Of Operation [facility] [address] [place]. [address] NAME: RUPAL CHAN : 57 STATUS : DIS IN PAT#: [id number] AGE: 62 ADM/REG DATE : 02/11/17 MR#: [id number] REPORT SERV DATE: 03/02/17 DICTATED BY: JOE SCHMIDT DATE: 03/02/17 REPORT STATUS : Draft TRANSCRIBED BY: MODL DATE: 03/02/17 DATE OF PROCEDURE: 02/21/2017 RESIDENT: Dr. Fernando Morrison. PREOPERATIVE DIAGNOSIS: Symptomatic cholelithiasis and biliary dyskinesia. POSTOPERATIVE DIAGNOSIS: Symptomatic cholelithiasis and biliary dyskinesia. PROCEDURE PERFORMED: Laparoscopic cholecystectomy. BLOOD LOSS: Minimal. ANESTHESIA: General. COMPLICATIONS: None. DESCRIPTION OF PROCEDURE: After informed consent was obtained, the patient was taken back to the operating room. She was placed in supine position. General endotracheal anesthesia was conducted and the patient's abdomen was then prepped and draped in sterile fashion. We began by making a 1.5 cm incision through the patient's umbilicus. We dissected down to the level of fascia. Grasped the fascia using curved clamps and sharply incised the fascia. We then inserted a 12 mm trocar into the umbilicus and insufflated the abdomen. We inserted the camera into the abdomen and found there would be no complications from our entry. We then placed additional trocar sites into the epigastric, her upper quadrant and right lower quadrant areas. We then grasped the gallbladder and retracted it towards the right shoulder. We then dissected out both the cystic artery and cystic duct. The cystic artery and cystic duct were identified at their junction with the gallbladder. We placed 2 clips on the proximal aspect of each structure and a single clip on the distal aspect. Both structures were then transected using scissors. We then used electrocautery to dissect the gallbladder off the gallbladder fossa of the liver. The gallbladder was then placed into an endobag. We examined the gallbladder fossa from the minimal bleeding which was controlled using electrocautery. The gallbladder was then removed through the umbilical trocar site. We then removed the other trocars under direct visualization of the camera. We removed the umbilical trocar site. Desufflated the abdomen. The umbilicus was then closed using a 0 Vicryl on a UR-6. The other trocar sites at the skin level were closed using Monocryl and then dressed with sterile dressings. There were no complications. The patient tolerated the procedure well and proceeded to PACU. JANENE/KEARA Joe Schmidt M.D. Record Of [address] [address] NAME: RUPAL CHAN : 57 STATUS : DIS IN PAT#: [id number] AGE: 62 ADM/REG DATE : 02/11/17 MR#: [id number] REPORT SERV DATE: 03/02/17 DICTATED BY: JOE SCHMIDT DATE: 03/02/17 REPORT STATUS : Draft TRANSCRIBED BY: KEARA DATE: 03/02/17 / [id number] CC: Erasmo Hernandez D.O.
--- NOTE | ~2017-02-11 | CN ---
Consultation Report [facility] [address] [place]. [address] NAME: RUPAL CHAN : 57 STATUS : ADM IN PAT#: [id number] AGE: 62 ADM/REG DATE : 02/11/17 MR#: [id number] REPORT SERV DATE: 02/13/17 DICTATED BY: NAOMI RIVERA DATE: 02/12/17 REPORT STATUS : Draft TRANSCRIBED BY: MODL DATE: 02/12/17 GI CONSULTATION DATE OF CONSULTATION: 02/12/2017 POOR SOUND QUALITY REASON FOR CONSULTATION: Evaluation and management of abdominal pain, history of ulcerative colitis, and diarrhea. HISTORY OF PRESENT ILLNESS: Ms Chan is a 62-year-old female patient, who is known to us from December of this year. She was ultimately diagnosed with ulcerative colitis by biopsy on 12/14/2016. Her colonoscopy then showed diffuse severe inflammation in the rectum, sigmoid colon, descending colon, transverse colon, consistent with inflammatory bowel disease which was biopsied. Biopsy did show chronic colitis with moderate activity consistent with inflammatory bowel disease. She was initially started on Lialda, however, at discharge she was transferred over to [facility]. She was taking 9 tablets a day, but secondary to nausea she was unable to take which she needed to, her diarrhea persisted, she re-presented to [facility]. On 01/02/2017, we did see her again, she was ultimately started on Humira, she is status post her 3rd injection of Humira last week on 02/08/2017. She has had a CT scan done on admission without contrast showing colitis present in the colon, but better or improved from 01/02/2017, also with some mild anasarca. She came in secondary to abdominal discomfort, and secondary to what she states is fall roughly two weeks ago with her not being able to take care of herself or complete her activities of daily living. She has been seen at the [facility] Dr. Kirby, and states she recently completed antibiotics for urinary tract infection. She states that she has been unable to really maintain her diet. She has had a decreased appetite with nausea and dry heaves. She has tried to drink Ensure or Pedialyte. She was seen in our office on the 02/07/2017, and it was addressed with her then for hospitalization, but she declined. The patient states that overnight she was able to rest form 09:00 p.m. to 03:00 a.m. stating that "whatever medication they are giving me" had slowed down my diarrhea. She states, however, now she has had roughly four bowel movements with less blood, but she states her bowel movements are completely watery. She states that before coming in, she was having approximately 12 to 15 bowel movements per day, lower abdominal pain, cramping, nausea, and dry heaves. She had a pre-albumin of less than 3 on admission. Her lactate was 3.2, her white count 25.3, and she is on a dose of 10 mg of prednisone every other day. PAST MEDICAL HISTORY: Positive for ulcerative colitis diagnosed in December of 2016, on a regimen of Humira every two weeks. Hypertension, hypothyroidism, peptic ulcer disease, hemorrhoids, and anxiety. PAST SURGICAL HISTORY: Denies. FAMILY HISTORY: A cousin with Crohn's disease. Mother and grandmother with colon polyps. Consultation Report [address] [address] NAME: RUPAL CHAN : 57 STATUS : ADM IN [facility]#: [id number] AGE: 62 ADM/REG DATE : 02/11/17 MR#: [id number] REPORT SERV DATE: 02/13/17 DICTATED BY: NAOMI RIVERA DATE: 02/12/17 REPORT STATUS : Draft TRANSCRIBED BY: KEARA DATE: 02/12/17 SOCIAL HISTORY: Presently she is living with her mother and father in [place], [place]. She denies alcohol, tobacco, or illicits. ALLERGIES: LISTED TO THE SANTOS FAMILY. HOME MEDICATIONS: Humira, vitamin B12, Lomotil, Anusol, Levsin, levothyroxine, centrum, Zofran, prednisone, Proctozone, and Imodium. REVIEW OF SYSTEMS: A 10-point review of systems has been obtained with pertinent positives being addressed in the history present illness. PERTINENT LABORATORY DATA: Sodium is 129, potassium 4.7, BUN is 11, creatinine 0.37. White count is 25.3, hemoglobin 8, hematocrit is 24, platelet count 388. INR 1.3. Total bilirubin 0.5, alkaline phosphatase 158, ALT 19, AST 26. Stool cultures and sensitivities are pending. Sugar toxin is negative. Giardia Cryptosporidium is negative. C diff was negative. Stool for wbcs' showed 5 per high-power field. PHYSICAL EXAMINATION: VITAL SIGNS: Temperature is 98.1, pulse 120, respirations 20, blood pressure of 102/60. NEURO: Reveals an alert, chronically ill-appearing female, resting in bed. GENERAL: She is cooperative. She is in no obvious acute distress. She is awake, alert, and oriented x3. HEAD, EARS, EYES, NOSE, AND THROAT: Anicteric. Pupils equal, round, reactive to light and accommodation. Normocephalic and atraumatic. NECK: No JVD. No palpable nodes. LUNGS: Diminished in the bases. Clear in the upper lobes. Normal respiratory effort exhibited. CARDIOVASCULAR: Regular rate and rhythm, but tachycardic. ABDOMEN: Soft, nondistended, very minimal tenderness to palpation to the lower abdomen. No organomegaly appreciated. EXTREMITIES: Notable for generalized body edema, anasarca. ASSESSMENT: 1. Ulcerative colitis. 2. Abdominal pain. 3. Diarrhea. 4. Urinary tract infection. 5. Severe protein calorie malnutrition. 6. Anasarca. 7. Hyponatremia. 8. Anemia. PLAN: 1. Continue antibiotic coverage. Consultation Report [address] [place]. [address] NAME: RUPAL CHAN : 57 STATUS : ADM IN [facility]#: [id number] AGE: 62 ADM/REG DATE : 02/11/17 MR#: [id number] REPORT SERV DATE: 02/13/17 DICTATED BY: NAOMI RIVERA DATE: 02/12/17 REPORT STATUS : Draft TRANSCRIBED BY: KEARA DATE: 02/12/17 2. stools. 3. Question if she needs to be increased on Humira dosage for every week for a period of time. We have been able to check . 4. Question severe protein calorie malnutrition should be indicated. 5. We will add scheduled Imodium for diarrhea as well as to go along with her Lomotil. We will discuss with Dr. Murray. Other recommendations to follow. PATRICIA/MODL Naomi CLAU Powell / [id number] CC: Erasmo Thomas D.O.
--- NOTE | ~2017-02-11 | CN ---
Consultation Report [facility] [address] [place]. [address] NAME: RUPAL CHAN : 57 STATUS : ADM IN [facility]#: [id number] AGE: 62 ADM/REG DATE : 02/11/17 MR#: [id number] REPORT SERV DATE: 02/19/17 DICTATED BY: ELSY NOLASCO DATE: 02/19/17 REPORT STATUS : Draft TRANSCRIBED BY: MODL DATE: 02/19/17 SURGERY CONSULTATION NOTE DATE OF CONSULTATION: 02/19/2017 REASON FOR CONSULTATION: Abnormal ultrasound of gallbladder. HISTORY OF PRESENT ILLNESS: This is a 62-year-old female, well known to my partner, Dr. Ivory Rodriguez, who states that she has known she has had gallstones for quite some time, but has been having intermittent abdominal pain, which is mostly postprandial. She states she has had nausea, but no vomiting. She states her ulcerative colitis is improving, and this seems to be the case. She is currently on prednisone, mesalamine, and as an outpatient, was also receiving anti-TNF therapy. She presented with severe malnutrition and has elevated liver function tests. Her total bilirubin is normal. An ultrasound does show a large gallstone impacted in the neck of the gallbladder, which does not change position, but no evidence of acute cholecystitis. The patient states that currently her abdominal pain is improved. She does not really want to undergo surgery. For the rest of her medical history, surgical history, social history, family history, medications, allergies to medications, and review of systems, please see the admitting history and physical. PHYSICAL EXAMINATION: GENERAL: Alert and orient x3. No acute distress. Pleasant elderly woman. HEENT: Normocephalic, atraumatic. NECK: Supple. No carotid bruits are noted. No cervical lymphadenopathy. CHEST: Clear to auscultation bilaterally. HEART: Regular rate and rhythm. No murmurs, rubs, or gallops are auscultated. ABDOMEN: Soft with only mild tenderness which seems to be mostly epigastric, slight right upper quadrant as well, but again is extremely mild. EXTREMITIES: Warm and well perfused without edema. NEURO: No focal neurologic deficits are noted on gross exam except the patient does seem to be little bit repetitive. LABS: As above. IMAGING: As above. ASSESSMENT: Cholelithiasis, possible early acute cholecystitis. PLAN: The patient is already scheduled for HIDA scan tomorrow. We will follow up the results and if appropriate, I recommend laparoscopic cholecystectomy. Consultation Report [address] [place]. [address] NAME: RUPAL CHAN : 57 STATUS : ADM IN PAT#: [id number] AGE: 62 ADM/REG DATE : 02/11/17 MR#: [id number] REPORT SERV DATE: 02/19/17 DICTATED BY: ELSY NOLASCO DATE: 02/19/17 REPORT STATUS : Draft TRANSCRIBED BY: KEARA DATE: 02/19/17 CHANDANAN/KEARA Elsy Nolasco MD / [id number] CC: Erasmo Veras D.O.
--- NOTE | ~2017-02-11 | DS ---
Discharge Summary [id number] [place]. [address] NAME: RUPAL CHAN : 57 STATUS : DIS IN PAT#: [id number] AGE: 62 ADM/REG DATE : 02/11/17 MR#: [id number] REPORT SERV DATE: 02/28/17 DICTATED BY: SHYANN NORWOOD DATE: 02/24/17 REPORT STATUS : Draft TRANSCRIBED BY: KEARA DATE: 02/24/17 ADMISSION DATE: 02/11/2017 DISCHARGE DATE: 02/23/2017 DIAGNOSES: 1. Cholelithiasis with large stone with biliary dyskinesia, status post lap mono. 2. Elevated LFTs secondary to above. 3. History of ulcerative colitis. 4. Moderate malnutrition. 5. Urinary tract infection, treated. 6. Hypothyroidism. 7. Anasarca secondary to hypoalbuminemia. CONSULTANTS: 1. GI with Dr. Abad Murray and Negro Montgomery, nurse practitioner. 2. General Surgery, Dr. Link Nolasco. DISCHARGE MEDICATIONS: Levsin 0.125 mg p.o. a.c. and h.s.; hydrocortisone topical per rectum q.h.s. for five days, then p.r.n.; levothyroxine 137 mcg p.o. daily; Marinol 2.5 mg p.o. b.i.d.; Lovenox 40 mg subcu daily for one week; folic acid 1 mg p.o. daily; level 2 subcutaneous sliding scale insulin; mesalamine 1000 mg per rectum q.h.s.; multivitamin p.o. daily; nystatin swish and swallow p.o. after meals; Zofran 8 mg p.o. q.6 hours; TPN IV for one week; Levemir 5 units subcutaneous q.h.s. for two weeks; Tylenol 650 mg p.o. q.4 hours p.r.n.; hydrocodone with acetaminophen 7.5 mg/325 one tab p.o. q.6 hours p.r.n.; albuterol neb q.4 hours p.r.n.; Lomotil 2.5 one tab p.o. t.i.d. p.r.n.; Proctozone per rectum q.h.s.; Imodium p.r.n.; vitamin B12, 1000 mcg p.o. daily; Phenergan 25 mg p.o. q.6 hours p.r.n.; Welchol 1.875 mg p.o. b.i.d.; Florastor one cap p.o. b.i.d.; prednisone taper per GI with 20 mg p.o. daily for five days and 10 mg p.o. daily for seven days and 5 mg p.o. daily for seven days and 5 mg p.o. every other day; the patient may restart Humira in two weeks. FOLLOWUP: The patient is to follow up with GI in two weeks and follow up with the primary care physician in one to two weeks. The patient is to follow up with general surgeon, Dr. Sung in two weeks, and PICC line is to be discontinued after completion of TPN at rehab. HOSPITALISTS: Dr. Norwood and Dr. Thurman. HOSPITAL COURSE: This is a 62-year-old female with a past medical history of ulcerative colitis and hypertension, who presented with abdominal pain. She follows up with GI physician, Dr. Torie Keene as an outpatient, and her primary care is Dr. Petr Kirby. She presented to [facility] ER with abdominal discomfort. The patient was initiated on TPN by GI for moderate malnutrition, also found to have elevated LFTs and found to have a large gallstone in the gallbladder neck, but no evidence of cholecystitis. A HIDA scan was ordered by GI that was found to be abnormal; therefore, General Surgery was consulted and the patient is now status post lap mono with removal of a large stone. Also, the patient was treated for anasarca during her hospital course most likely secondary to hypoalbuminemia from her moderate protein-calorie malnutrition. The patient's nausea and vomiting improved Discharge Summary [address] [address] NAME: RUPAL CHAN : 57 STATUS : DIS IN PAT#: [id number] AGE: 62 ADM/REG DATE : 02/11/17 MR#: [id number] REPORT SERV DATE: 02/28/17 DICTATED BY: SHYANN NORWOOD DATE: 02/24/17 REPORT STATUS : Draft TRANSCRIBED BY: KEARA DATE: 04/15/17 after lap mono and improved oral intake. However, the patient is to continue with TPN for one week at rehab ordered by GI for her moderate malnutrition. Her prealbumin did have some improvement with TPN during her hospital course from undetectable to 11.7. The patient was noted to be eating at the time of discharge and deemed stable for discharge by all specialists and discharged to inpatient rehab. Please refer to interim summary from Dr. Thurman for further details. This discharge required greater than 30 minutes. CHEPE/MODL Shyann Norwood M.D. / [id number] CC: Erasmo Alexander D.O. Coleman Arnold, M.D. James Scott Manton, M.D. Munford Yates III, M.D.
--- NOTE | ~2017-02-11 | IDS ---
Interim Discharge Summary [facility] [address] [place]. [address] NAME: RUPAL CHAN : 57 STATUS : ADM IN [facility]#: [id number] AGE: 62 ADM/REG DATE : 02/11/17 MR#: [id number] REPORT SERV DATE: 02/19/17 DICTATED BY: RY MOYA DATE: 02/19/17 REPORT STATUS : Draft TRANSCRIBED BY: MODL DATE: 02/19/17 ADMISSION DATE: 02/11/2017 DISCHARGE DATE: 02/19/2017 CURRENT MEDICAL PROBLEMS: 1. Ulcerative colitis, followed by GI. 2. Moderate malnourishment, on TPN. 3. Urinary tract infection, treated. 4. Elevated liver enzymes with abnormal ultrasound, stone at the gallbladder neck. Question gallbladder disease. General Surgery consulted as well as liver enzymes followed per GI, Negro and General Surgery, Dr. Diaz. 5. Anemia of chronic disease secondary to ulcerative colitis, stable hemoglobin and hematocrit. 6. Urinary tract infection, treated per sensitivity. 7. Abdominal pain on and off, improved. 8. Hyperglycemia secondary to TPN, controlled. 9. Anasarca, present on admission, improved with IV Lasix. IMAGING: Imaging studies done during the week that I saw the patient. Abdominal ultrasound on 02/19/2017 showed large gallstone lodged in the neck of the gallbladder. There is no wall thickening or pericholecystic fluid. However, the patient is tender over the gallbladder, extensive fatty infiltration of the liver. CT of the abdomen and pelvis done on 02/11/2017 on admission showed colitis present in the colon but better or improved from 01/02/2017. There has been development of some body anasarca but mild. No acute or obstruction. HISTORY OF PRESENT ILLNESS: For the history of present illness, please refer to the history of present illness dictated by Dr. Tran on 02/11/2017. HOSPITAL COURSE: Briefly, for the week that I saw the patient, she was improving. Her diarrhea was improved, as well as she was on IV steroids, which were switched to oral steroids. I was giving her Lasix for her anasarca and has improved, and I think that her anasarca was related to malnourishment and low albumin. She was also started on TPN per Embedded Case Manager. Yesterday, Dr. Panchal checked her liver enzymes, which were elevated. Alkaline phosphatase was 483, ALT was 190, and AST 111, and today alkaline phosphatase is 547, ALT 199, AST 70, and she was found to have also a large gallstone in the gallbladder neck with no evidence of cholecystitis. There was a concern of gallbladder disease, so HIDA scan is ordered by effervescent salts compounder and General Surgery was reconsulted, Joe, so we are waiting currently on her HIDA ,scan and also the decision regarding TPN continuation will be done by effervescent salts compounder. Question if this liver enzymes are related to TPN or related to gallbladder disease, but overall, the patient looks better. Her urinary tract infection was treated according to sensitivity and antibiotics have been discontinued for several days. Her hemoglobin was stable. Her anasarca has improved. She is doing well. Interim Discharge Summary [address] [place]. [address] NAME: RUPAL CHAN : 57 STATUS : ADM IN [facility]#: [id number] AGE: 62 ADM/REG DATE : 02/11/17 MR#: [id number] REPORT SERV DATE: 02/19/17 DICTATED BY: RY MOYA DATE: 02/19/17 REPORT STATUS : Draft TRANSCRIBED BY: KEARA DATE: 02/19/17 Dr. Tran will see this patient starting tomorrow morning. /KEARA Ry Moya M.D. / [id number] CC: Erasmo Veras D.O. James Scott Manton, M.D. Munford Yates III, M.D. Shauna Lorenzo-Rivero, M.D.
[2017-02-11 12:53] LABS: BASOPHILS 0.1 %; BASOPHILS ABSOLUTE 0.04 10/3/uL (0.0-0.16); EOSINOPHILS 0.1 %; HEMOGLOBIN 9.1 g/dL (12.0-16.0); IMMATURE GRANULOCYTES 3.7 %; LYMPHOCYTES 7.1 %; LYMPHOCYTES ABSOLUTE 1.93 10/3/uL (0.67-4.30); MEAN CORPUS HGB CONC 33.5 g/dL (32.0-36.0); MEAN CORPUSCULAR HEMOGLOB 25.3 pg (26.0-34.0); MEAN PLATELET VOLUME 7.9 fL (9.2-13.0); MONOCYTES 0.2 %; MONOCYTES ABSOLUTE 0.06 10/3/uL (0.21-1.20); NEUTROPHILS 88.8 %; NEUTROPHILS ABSOLUTE 24.29 10/3/uL (2.02-8.40); NUCLEATED RED BLOOD CELLS 0.1 /100WBC (0-0)
[2017-02-11 12:54] LABS: ER CBC TAT 0 Hrs 00 Mins; HEMATOCRIT 27.2 % (36.0-48.0); MEAN CORPUSCULAR VOLUME 75.6 fL (80-100); PLATELET COUNT 452 10/3/uL (150-400); WHITE BLOOD CELLS 27.4 10/3/uL (4.5-10.5)
[2017-02-11 12:55] LABS: MANUAL DIFF NO %
[2017-02-11 12:56] LABS: EOSINOPHILS ABSOLUTE 0.03 10/3/uL (0.0-0.53)
[2017-02-11 13:01] LABS: INTERNATIONAL NORMAL RATI 1.3 UNITS (-); PARTIAL THROMBO TIME 34.3 SEC (22.5-37.2); PROTIME (NOT ORD) 16.3 SEC (12.0-14.5)
[2017-02-11 13:12] LABS: CALCIUM, SERUM 7.4 MG/DL (8.5-10.4); CHLORIDE, SERUM 88 MMOL/L (96-112); CO2 (CARBON DIOXIDE) 29 MMOL/L (24-34); CREATININE 0.46 MG/DL (0.55-1.02); GFR AFRICAN AMERICAN 124 ML/MIN (>=60); GFR NON AFRICAN AMERICAN 107 ML/MIN (>=60); GLUCOSE, SERUM 123 MG/DL (60-99); POTASSIUM, SERUM 4.6 MMOL/L (3.5-5.3); SGOT(AST) 14 U/L (5-40); SGPT(ALT) 15 U/L (5-65); SODIUM, SERUM 127 MMOL/L (135-148); TOTAL BILIRUBIN 0.7 MG/DL (0-1.2); TOTAL PROTEIN 5.2 G/DL (6.0-8.5); TROPONIN I <0.02 NG/ML (<0.05)
[2017-02-11 13:13] LABS: A/G RATIO 0.2 (0.7-1.9); ALBUMIN 0.9 G/DL (3.5-5.0); ALKALINE PHOSPHATASE 162 U/L (45-117); BUN (BLOOD UREA NITROGEN) 12 MG/DL (6-23); GLOBULIN 4.3 G/DL (2.5-4.1); LACTATE 2.9 MMOL/L (0.3-2.4)
[2017-02-11 13:16] LABS: BAND NEUTROPHILS 41 %; ER DIFF TAT 0 Hrs 22 Mins; IMMATURE GRANS ABSOLUTE (CALC) 0.27 10/3/uL (0.0-0.11); LYMPHOCYTES 10 %; LYMPHOCYTES ABSOLUTE (CALC) 2.74 10/3/uL (0.67-4.30); METAMYELOCYTES 1 %; MONOCYTES 3 %; MONOCYTES ABSOLUTE (CALC) 0.82 10/3/uL (0.21-1.20); NEUTROPHILS ABSOLUTE (CALC) 23.56 10/3/uL (2.02-8.40); SEGMENTED NEUTROPHIL (0) 45 %; TOTAL NUCLEATED CELLS 100
[2017-02-11 13:17] LABS: ANISOCYTOSIS 1+ (5-10/OIF) (0-5/OIF); MICROCYTES 1+ (5-10/OIF) (0-5/OIF); PLATELET ESTIMATE SLT INC (ADEQUATE)
[2017-02-11 13:18] LABS: HYPOCHROMIA 1+ (3-10/OIF) (0-2/OIF); TOXIC GRANULATION 1+
[~2017-02-11 13:24] MED LIST changes: +COLAZAL 750 MG750 MG PO; +FISH OIL PO; +LEVSINTAB PO; +MVI PO; +NORCO1 TA1 PO; +NORV5 PO; +NYS500UDL PO; +P10 PO; +VITAMIN B12 TABLET PO; +VITAMIN D PO; +X25 PO
[2017-02-11] MEDS ORDERED: LOM PO (13:43)
[2017-02-11] MEDS ORDERED: ANUSOL-HC25 MG PR (13:43)
[2017-02-11] MEDS ORDERED: PROCTOZONE HC 2.5% PR (13:44)
[2017-02-11] MEDS ORDERED: P10 PO (13:45)
[2017-02-11] MEDS ORDERED: LEVOTHYROXIN137 MCG PO (13:46)
[2017-02-11] MEDS ORDERED: CENTRUM PO (13:46)
[2017-02-11] MEDS ORDERED: IMODIUM LIQUID PO (13:46)
[2017-02-11] MEDS ORDERED: CYANO1000T PO (13:47)
[2017-02-11] MEDS ORDERED: HUMIRA PEN SC (13:48)
[2017-02-11] MEDS ORDERED: LEVSINTAB PO (13:48)
[2017-02-11] MEDS ORDERED: *UNABLE3 (13:50)
[2017-02-11] MEDS ORDERED: ZOFRAN8 PO (13:56)
[2017-02-11 15:16] LABS: ASCORBIC ACID (UR NOT ORDER) NEG (NEG); BILIRUBIN, URINE NEGATIVE (NEG); ER URINALYSIS TAT 0 Hrs 11 Mins; KETONE, URINE NEGATIVE (NEG); LEUKOCYTE ESTERASE(NOT OR LARGE (NEG)
[2017-02-11 15:17] LABS: NITRITE (URINE) POS (NEG); WBC (NOT ORDERED) (RFLEX) > 182 (0-5)
[2017-02-11 19:05] LABS: PROCALCITONIN 0.37 ng/mL (<0.5)
[2017-02-11 21:19] LABS: BUN (BLOOD UREA NITROGEN) 12 MG/DL (6-23); CALCIUM, SERUM 7.4 MG/DL (8.5-10.4); CHLORIDE, SERUM 94 MMOL/L (96-112); CO2 (CARBON DIOXIDE) 24 MMOL/L (24-34); CREATININE 0.36 MG/DL (0.55-1.02); GFR AFRICAN AMERICAN 135 ML/MIN (>=60); GFR NON AFRICAN AMERICAN 116 ML/MIN (>=60); GLUCOSE, SERUM 92 MG/DL (60-99); POTASSIUM, SERUM 4.7 MMOL/L (3.5-5.3); SODIUM, SERUM 131 MMOL/L (135-148)
[2017-02-12 06:58] LABS: MEAN CORPUS HGB CONC 33.3 g/dL (32.0-36.0); MEAN CORPUSCULAR HEMOGLOB 24.8 pg (26.0-34.0); MEAN CORPUSCULAR VOLUME 74.5 fL (80-100); MEAN PLATELET VOLUME 8.3 fL (9.2-13.0); PLATELET COUNT 388 10/3/uL (150-400); RBC DISTRIBUTION WIDTH 19.7 % (12.0-16.0); RED CELL COUNT 3.22 10/6/uL (4.0-5.6)
[2017-02-12 07:14] LABS: WHITE BLOOD CELLS 25.3 10/3/uL (4.5-10.5)
[2017-02-12 07:15] LABS: MANUAL DIFF YES %
[2017-02-12 07:17] LABS: ALKALINE PHOSPHATASE 158 U/L (45-117); BUN (BLOOD UREA NITROGEN) 11 MG/DL (6-23); CALCIUM, SERUM 7.1 MG/DL (8.5-10.4); CHLORIDE, SERUM 95 MMOL/L (96-112); CO2 (CARBON DIOXIDE) 23 MMOL/L (24-34); CREATININE 0.37 MG/DL (0.55-1.02); GFR AFRICAN AMERICAN 134 ML/MIN (>=60); GFR NON AFRICAN AMERICAN 115 ML/MIN (>=60); SGPT(ALT) 19 U/L (5-65); SODIUM, SERUM 129 MMOL/L (135-148); TOTAL BILIRUBIN 0.5 MG/DL (0-1.2); TOTAL PROTEIN 4.7 G/DL (6.0-8.5)
[2017-02-12 07:18] LABS: A/G RATIO 0.2 (0.7-1.9); ALBUMIN 0.7 G/DL (3.5-5.0); GLUCOSE, SERUM 64 MG/DL (60-99); POTASSIUM, SERUM 4.7 MMOL/L (3.5-5.3); PREALBUMIN < 3.0 MG/DL (17.0-43.0)
[2017-02-12 07:19] LABS: SGOT(AST) 26 U/L (5-40)
[2017-02-12 07:36] LABS: ANISOCYTOSIS 1+ (5-10/OIF) (0-5/OIF); BAND NEUTROPHILS 15 %; HYPOCHROMIA 1+ (3-10/OIF) (0-2/OIF); IMMATURE GRANS ABSOLUTE (CALC) 0.25 10/3/uL (0.0-0.11); LYMPHOCYTES 4 %; LYMPHOCYTES ABSOLUTE (CALC) 1.01 10/3/uL (0.67-4.30); METAMYELOCYTES 1 %; MICROCYTES 1+ (5-10/OIF) (0-5/OIF); MONOCYTES 4 %; MONOCYTES ABSOLUTE (CALC) 1.01 10/3/uL (0.21-1.20); NEUTROPHILS ABSOLUTE (CALC) 23.02 10/3/uL (2.02-8.40); PLATELET ESTIMATE ADQ (ADEQUATE); SEGMENTED NEUTROPHIL (0) 76 %; TOTAL NUCLEATED CELLS 100
[2017-02-12 09:45] LABS: T PROTEIN (ELECT)(NOT OR 4.7 G/DL (6.0-8.5)
[2017-02-13 06:30] LABS: HEMATOCRIT 22.4 % (36.0-48.0); HEMOGLOBIN 7.4 g/dL (12.0-16.0); MANUAL DIFF YES %; MEAN CORPUSCULAR HEMOGLOB 25.2 pg (26.0-34.0); MEAN CORPUSCULAR VOLUME 76.2 fL (80-100); MEAN PLATELET VOLUME 7.9 fL (9.2-13.0); PLATELET COUNT 357 10/3/uL (150-400); RBC DISTRIBUTION WIDTH 19.9 % (12.0-16.0); RED CELL COUNT 2.94 10/6/uL (4.0-5.6); WHITE BLOOD CELLS 18.3 10/3/uL (4.5-10.5)
[2017-02-13 06:36] LABS: INTERNATIONAL NORMAL RATI 1.5 UNITS (-); PROTIME (NOT ORD) 17.8 SEC (12.0-14.5)
[2017-02-13 06:48] LABS: BUN (BLOOD UREA NITROGEN) 9 MG/DL (6-23); CALCIUM, SERUM 7.2 MG/DL (8.5-10.4); CHLORIDE, SERUM 97 MMOL/L (96-112); CO2 (CARBON DIOXIDE) 23 MMOL/L (24-34); CREATININE 0.51 MG/DL (0.55-1.02); GFR AFRICAN AMERICAN 120 ML/MIN (>=60); GFR NON AFRICAN AMERICAN 104 ML/MIN (>=60); SODIUM, SERUM 130 MMOL/L (135-148)
[2017-02-13 06:52] LABS: GLUCOSE, SERUM 138 MG/DL (60-99); POTASSIUM, SERUM 3.6 MMOL/L (3.5-5.3)
[2017-02-13 07:13] LABS: BAND NEUTROPHILS 43 %; EOSINOPHILS 1 %; EOSINOPHILS ABSOLUTE (CALC) 0.18 10/3/uL (0.0-0.53); IMMATURE GRANS ABSOLUTE (CALC) 0.37 10/3/uL (0.0-0.11); LYMPHOCYTES 3 %; LYMPHOCYTES ABSOLUTE (CALC) 0.55 10/3/uL (0.67-4.30); METAMYELOCYTES 2 %; MONOCYTES 2 %; MONOCYTES ABSOLUTE (CALC) 0.37 10/3/uL (0.21-1.20); NEUTROPHILS ABSOLUTE (CALC) 16.84 10/3/uL (2.02-8.40); SEGMENTED NEUTROPHIL (0) 49 %; TOTAL NUCLEATED CELLS 100
[2017-02-13 07:14] LABS: ANISOCYTOSIS 1+ (5-10/OIF) (0-5/OIF); PLATELET ESTIMATE ADQ (ADEQUATE); POLYCHROMASIA 1+ (2-5/OIF) (0-1/OIF); TOXIC GRANULATION 1+
[2017-02-13 12:06] LABS: A/G 0.26 RATIO (0.9-2.10); ALB RELATIVE % 20.8 % (60.0-89.0); ALPHA 1 RELAT % (NOT ORD) 10.7 % (1.0-4.0); ALPHA 2 (ELECTRO) 1.08 GM/DL (0.5-1.10); ALPHA 2 RELAT % 22.9 % (4.5-26.0); BETA GLOBULIN (SPE) 0.74 GM/DL (0.60-1.30); BETA RELATIVE % 15.7 % (9.0-22.0); GAMMA GLOBULIN (SPE) 1.41 G/DL (0.70-1.60); GAMMA RELAT % 29.9 % (6.0-22.0)
[2017-02-13 13:12] LABS: ALBUMIN (ELECTRO) 0.98 GM/DL (3.2-5.5)
[2017-02-13 15:37] LABS: A/G RATIO 0.2 (0.7-1.9); ALBUMIN 0.8 G/DL (3.5-5.0); BUN (BLOOD UREA NITROGEN) 8 MG/DL (6-23); CHLORIDE, SERUM 96 MMOL/L (96-112); CO2 (CARBON DIOXIDE) 20 MMOL/L (24-34); CREATININE 0.52 MG/DL (0.55-1.02); GFR AFRICAN AMERICAN 120 ML/MIN (>=60); GFR NON AFRICAN AMERICAN 103 ML/MIN (>=60); GLOBULIN 3.6 G/DL (2.5-4.1); POTASSIUM, SERUM 3.8 MMOL/L (3.5-5.3); PREALBUMIN 3.6 MG/DL (17.0-43.0); SGOT(AST) 23 U/L (5-40); SGPT(ALT) 21 U/L (5-65); SODIUM, SERUM 129 MMOL/L (135-148); TOTAL BILIRUBIN 0.3 MG/DL (0-1.2); TOTAL PROTEIN 4.4 G/DL (6.0-8.5); TRIGLYCERIDE 153 MG/DL (< 150)
[2017-02-13 15:38] LABS: ALKALINE PHOSPHATASE 217 U/L (45-117); CALCIUM, SERUM 6.8 MG/DL (8.5-10.4); GLUCOSE, SERUM 188 MG/DL (60-99); PHOSPHORUS, SERUM 2.4 MG/DL (2.5-4.5)
[2017-02-14 04:03] LABS: MEAN CORPUS HGB CONC 32.8 g/dL (32.0-36.0); MEAN CORPUSCULAR HEMOGLOB 25.5 pg (26.0-34.0); MEAN CORPUSCULAR VOLUME 77.7 fL (80-100); MEAN PLATELET VOLUME 7.9 fL (9.2-13.0); PLATELET COUNT 270 10/3/uL (150-400); RBC DISTRIBUTION WIDTH 19.9 % (12.0-16.0); RED CELL COUNT 2.51 10/6/uL (4.0-5.6)
[2017-02-14 04:10] LABS: HEMATOCRIT 19.5 % (36.0-48.0); HEMOGLOBIN 6.4 g/dL (12.0-16.0)
[2017-02-14 04:12] LABS: MANUAL DIFF YES %
[2017-02-14 04:32] LABS: BAND NEUTROPHILS 22 %; LYMPHOCYTES 12 %; METAMYELOCYTES 1 %; MONOCYTES 1 %; MONOCYTES ABSOLUTE (CALC) 0.15 10/3/uL (0.21-1.20); MYELOCYTES 3 %; NEUTROPHILS ABSOLUTE (CALC) 12.45 10/3/uL (2.02-8.40); SEGMENTED NEUTROPHIL (0) 61 %; TOTAL NUCLEATED CELLS 100
[2017-02-14 04:33] LABS: MICROCYTES 1+ (5-10/OIF) (0-5/OIF); PLATELET ESTIMATE ADQ (ADEQUATE); RBC MORPHOLOGY ABN (NORMAL)
[2017-02-14 04:34] LABS: BUN (BLOOD UREA NITROGEN) 7 MG/DL (6-23); CALCIUM, SERUM 6.3 MG/DL (8.5-10.4); CHLORIDE, SERUM 100 MMOL/L (96-112); CO2 (CARBON DIOXIDE) 24 MMOL/L (24-34); CREATININE 0.35 MG/DL (0.55-1.02); GFR AFRICAN AMERICAN 136 ML/MIN (>=60); GFR NON AFRICAN AMERICAN 117 ML/MIN (>=60); GLUCOSE, SERUM 164 MG/DL (60-99); PHOSPHORUS, SERUM 1.6 MG/DL (2.5-4.5); POTASSIUM, SERUM 4.1 MMOL/L (3.5-5.3); SODIUM, SERUM 133 MMOL/L (135-148); TRIGLYCERIDE 113 MG/DL (< 150)
[2017-02-15 05:31] LABS: BASOPHILS 0 %; EOSINOPHILS 0 %; IMMATURE GRANULOCYTES 1.9 %; IMMATURE GRANULOCYTES ABSOLUTE 0.15 10/3/uL (0.0-0.11); LYMPHOCYTES ABSOLUTE 1.11 10/3/uL (0.67-4.30); MEAN CORPUSCULAR HEMOGLOB 27.4 pg (26.0-34.0); MEAN PLATELET VOLUME 8.3 fL (9.2-13.0); MONOCYTES 3.9 %; MONOCYTES ABSOLUTE 0.31 10/3/uL (0.21-1.20); NEUTROPHILS 80.2 %; NEUTROPHILS ABSOLUTE 6.37 10/3/uL (2.02-8.40); RBC DISTRIBUTION WIDTH 17.9 % (12.0-16.0)
[2017-02-15 05:34] LABS: HEMATOCRIT 28.2 % (36.0-48.0); HEMOGLOBIN 9.6 g/dL (12.0-16.0); WHITE BLOOD CELLS 7.9 10/3/uL (4.5-10.5)
[2017-02-15 05:35] LABS: MANUAL DIFF NO %; MEAN CORPUSCULAR VOLUME 80.6 fL (80-100); PLATELET COUNT 187 10/3/uL (150-400)
[2017-02-15 05:52] LABS: ALBUMIN 0.7 G/DL (3.5-5.0); BUN (BLOOD UREA NITROGEN) 8 MG/DL (6-23); CHLORIDE, SERUM 102 MMOL/L (96-112); CO2 (CARBON DIOXIDE) 27 MMOL/L (24-34); CREATININE 0.15 MG/DL (0.55-1.02); GFR AFRICAN AMERICAN 180 ML/MIN (>=60); GFR NON AFRICAN AMERICAN 155 ML/MIN (>=60); GLUCOSE, SERUM 156 MG/DL (60-99); SGOT(AST) 13 U/L (5-40); SGPT(ALT) 19 U/L (5-65); SODIUM, SERUM 137 MMOL/L (135-148); TOTAL BILIRUBIN 0.5 MG/DL (0-1.2); TOTAL PROTEIN 4.2 G/DL (6.0-8.5)
[2017-02-15 05:54] LABS: ALKALINE PHOSPHATASE 170 U/L (45-117); CALCIUM, SERUM 6.7 MG/DL (8.5-10.4); DIRECT BILIRUBIN < 0.1 MG/DL (0.0-0.4); INDIRECT BILIRUBIN(NOT ORDER) 0.4 MG/DL (0.1-0.9); PHOSPHORUS, SERUM 2.1 MG/DL (2.5-4.5)
[2017-02-16 07:44] LABS: HEMOGLOBIN 9.3 g/dL (12.0-16.0); MEAN CORPUS HGB CONC 33.2 g/dL (32.0-36.0); MEAN CORPUSCULAR HEMOGLOB 27.2 pg (26.0-34.0); MEAN CORPUSCULAR VOLUME 81.9 fL (80-100); MEAN PLATELET VOLUME 8.1 fL (9.2-13.0); PLATELET COUNT 202 10/3/uL (150-400); RBC DISTRIBUTION WIDTH 18.3 % (12.0-16.0); RED CELL COUNT 3.42 10/6/uL (4.0-5.6); WHITE BLOOD CELLS 8.3 10/3/uL (4.5-10.5)
[2017-02-16 07:47] LABS: MANUAL DIFF YES %
[2017-02-16 08:07] LABS: CHLORIDE, SERUM 99 MMOL/L (96-112); CO2 (CARBON DIOXIDE) 30 MMOL/L (24-34); CREATININE 0.18 MG/DL (0.55-1.02); GFR AFRICAN AMERICAN 169 ML/MIN (>=60); GFR NON AFRICAN AMERICAN 146 ML/MIN (>=60); GLUCOSE, SERUM 145 MG/DL (60-99); PHOSPHORUS, SERUM 1.8 MG/DL (2.5-4.5); POTASSIUM, SERUM 3.9 MMOL/L (3.5-5.3); SODIUM, SERUM 137 MMOL/L (135-148)
[2017-02-16 08:08] LABS: ANISOCYTOSIS 1+ (5-10/OIF) (0-5/OIF); BAND NEUTROPHILS 22 %; BUN (BLOOD UREA NITROGEN) 14 MG/DL (6-23); CALCIUM, SERUM 6.8 MG/DL (8.5-10.4); LYMPHOCYTES 16 %; LYMPHOCYTES ABSOLUTE (CALC) 1.33 10/3/uL (0.67-4.30); MONOCYTES 3 %; MONOCYTES ABSOLUTE (CALC) 0.25 10/3/uL (0.21-1.20); NEUTROPHILS ABSOLUTE (CALC) 6.72 10/3/uL (2.02-8.40); PLATELET ESTIMATE ADQ (ADEQUATE); SEGMENTED NEUTROPHIL (0) 59 %; TOTAL NUCLEATED CELLS 100
[2017-02-17 07:03] LABS: HEMOGLOBIN 8.7 g/dL (12.0-16.0)
[2017-02-17 07:20] LABS: BUN (BLOOD UREA NITROGEN) 15 MG/DL (6-23); CALCIUM, SERUM 7.4 MG/DL (8.5-10.4); CHLORIDE, SERUM 102 MMOL/L (96-112); CO2 (CARBON DIOXIDE) 29 MMOL/L (24-34); CREATININE 0.17 MG/DL (0.55-1.02); GFR AFRICAN AMERICAN 173 ML/MIN (>=60); GFR NON AFRICAN AMERICAN 149 ML/MIN (>=60); GLUCOSE, SERUM 85 MG/DL (60-99); PHOSPHORUS, SERUM 2.5 MG/DL (2.5-4.5); POTASSIUM, SERUM 3.9 MMOL/L (3.5-5.3); SODIUM, SERUM 137 MMOL/L (135-148)
[2017-02-18 05:58] LABS: HEMATOCRIT 27.3 % (36.0-48.0)
[2017-02-18 06:17] LABS: BUN (BLOOD UREA NITROGEN) 12 MG/DL (6-23); CALCIUM, SERUM 7.5 MG/DL (8.5-10.4); CHLORIDE, SERUM 102 MMOL/L (96-112); CO2 (CARBON DIOXIDE) 27 MMOL/L (24-34); CPK 12 U/L (0-200); GLUCOSE, SERUM 92 MG/DL (60-99); POTASSIUM, SERUM 3.9 MMOL/L (3.5-5.3); SGOT(AST) 111 U/L (5-40); SGPT(ALT) 190 U/L (5-65); SODIUM, SERUM 137 MMOL/L (135-148); TOTAL BILIRUBIN 0.1 MG/DL (0-1.2); TOTAL PROTEIN 4.5 G/DL (6.0-8.5)
[2017-02-18 06:19] LABS: A/G RATIO 0.3 (0.7-1.9); ALKALINE PHOSPHATASE 483 U/L (45-117); CREATININE < 0.15 MG/DL (0.55-1.02); GFR AFRICAN AMERICAN 180 ML/MIN (>=60); GFR NON AFRICAN AMERICAN 155 ML/MIN (>=60); GLOBULIN 3.5 G/DL (2.5-4.1)
[2017-02-18 09:25] LABS: PHOSPHORUS, SERUM 2.8 MG/DL (2.5-4.5)
[2017-02-19 10:09] LABS: BASOPHILS 0.1 %; BASOPHILS ABSOLUTE 0.01 10/3/uL (0.0-0.16); EOSINOPHILS ABSOLUTE 0.09 10/3/uL (0.0-0.53); HEMATOCRIT 28.5 % (36.0-48.0); HEMOGLOBIN 9.4 g/dL (12.0-16.0); IMMATURE GRANULOCYTES 0.4 %; IMMATURE GRANULOCYTES ABSOLUTE 0.04 10/3/uL (0.0-0.11); LYMPHOCYTES 25.3 %; LYMPHOCYTES ABSOLUTE 2.35 10/3/uL (0.67-4.30); MEAN CORPUSCULAR HEMOGLOB 27.8 pg (26.0-34.0); MEAN CORPUSCULAR VOLUME 84.3 fL (80-100); MEAN PLATELET VOLUME 8.6 fL (9.2-13.0); MONOCYTES 2.8 %; MONOCYTES ABSOLUTE 0.26 10/3/uL (0.21-1.20); NEUTROPHILS 70.4 %; NEUTROPHILS ABSOLUTE 6.54 10/3/uL (2.02-8.40); RBC DISTRIBUTION WIDTH 20.7 % (12.0-16.0); RED CELL COUNT 3.38 10/6/uL (4.0-5.6); WHITE BLOOD CELLS 9.3 10/3/uL (4.5-10.5)
[2017-02-19 10:12] LABS: MANUAL DIFF NO %; PLATELET COUNT 311 10/3/uL (150-400)
[2017-02-19 10:15] LABS: HEP B SUR AB QUANTITATIVE < 3.10 mIU/mL (>=10.0)
[2017-02-19 10:26] LABS: A/G RATIO 0.3 (0.7-1.9); ALBUMIN 1.1 G/DL (3.5-5.0); ALKALINE PHOSPHATASE 547 U/L (45-117); BUN (BLOOD UREA NITROGEN) 10 MG/DL (6-23); CALCIUM, SERUM 7.7 MG/DL (8.5-10.4); CHLORIDE, SERUM 101 MMOL/L (96-112); CO2 (CARBON DIOXIDE) 28 MMOL/L (24-34); CREATININE 0.17 MG/DL (0.55-1.02); GFR AFRICAN AMERICAN 173 ML/MIN (>=60); GFR NON AFRICAN AMERICAN 149 ML/MIN (>=60); GLOBULIN 3.8 G/DL (2.5-4.1); GLUCOSE, SERUM 72 MG/DL (60-99); PHOSPHORUS, SERUM 2.8 MG/DL (2.5-4.5); POTASSIUM, SERUM 4.1 MMOL/L (3.5-5.3); SGOT(AST) 70 U/L (5-40); SGPT(ALT) 199 U/L (5-65); SODIUM, SERUM 137 MMOL/L (135-148); TOTAL BILIRUBIN 0.4 MG/DL (0-1.2); TOTAL PROTEIN 4.9 G/DL (6.0-8.5)
[2017-02-19 10:43] LABS: HEPATITIS C ANTIBODY NON-REACTIVE (NON-REACT)
[2017-02-20 05:43] LABS: HEMATOCRIT 27.6 % (36.0-48.0); HEMOGLOBIN 8.1 g/dL (12.0-16.0); MEAN PLATELET VOLUME 9.4 fL (9.2-13.0); NUCLEATED RED BLOOD CELLS 0.3 /100WBC (0-0); PLATELET COUNT 295 10/3/uL (150-400); RBC DISTRIBUTION WIDTH 22.2 % (12.0-16.0); WHITE BLOOD CELLS 6.5 10/3/uL (4.5-10.5)
[2017-02-20 05:45] LABS: MANUAL DIFF YES %; MEAN CORPUS HGB CONC 29.3 g/dL (32.0-36.0); MEAN CORPUSCULAR HEMOGLOB 30.7 pg (26.0-34.0); MEAN CORPUSCULAR VOLUME 104.5 fL (80-100); RED CELL COUNT 2.64 10/6/uL (4.0-5.6)
[2017-02-20 06:34] LABS: BAND NEUTROPHILS 26 %; EOSINOPHILS 1 %; EOSINOPHILS ABSOLUTE (CALC) 0.07 10/3/uL (0.0-0.53); LYMPHOCYTES 10 %; LYMPHOCYTES ABSOLUTE (CALC) 0.65 10/3/uL (0.67-4.30); NEUTROPHILS ABSOLUTE (CALC) 5.79 10/3/uL (2.02-8.40); PLATELET ESTIMATE ADQ (ADEQUATE); SEGMENTED NEUTROPHIL (0) 63 %; TOTAL NUCLEATED CELLS 100
[2017-02-20 06:35] LABS: MACROCYTES 1+ (5-10/OIF) (0-5/OIF); POIKILOCYTOSIS 1+ (5-10/OIF) (0-5/OIF); POLYCHROMASIA 1+ (2-5/OIF) (0-1/OIF)
[2017-02-20 06:40] LABS: ALBUMIN 1.1 G/DL (3.5-5.0); CALCIUM, SERUM 7.4 MG/DL (8.5-10.4); CHLORIDE, SERUM 105 MMOL/L (96-112); CO2 (CARBON DIOXIDE) 27 MMOL/L (24-34); CREATININE 0.27 MG/DL (0.55-1.02); GFR AFRICAN AMERICAN 148 ML/MIN (>=60); GFR NON AFRICAN AMERICAN 128 ML/MIN (>=60); PHOSPHORUS, SERUM 2.8 MG/DL (2.5-4.5); SGOT(AST) 26 U/L (5-40); SGPT(ALT) 124 U/L (5-65); SODIUM, SERUM 140 MMOL/L (135-148); TOTAL BILIRUBIN 0.2 MG/DL (0-1.2); TOTAL PROTEIN 4.7 G/DL (6.0-8.5)
[2017-02-20 06:41] LABS: ALKALINE PHOSPHATASE 375 U/L (45-117); BUN (BLOOD UREA NITROGEN) 18 MG/DL (6-23); DIRECT BILIRUBIN < 0.1 MG/DL (0.0-0.4); GLUCOSE, SERUM 221 MG/DL (60-99); INDIRECT BILIRUBIN(NOT ORDER) 0.1 MG/DL (0.1-0.9)
[2017-02-21 06:05] LABS: BASOPHILS 0.1 %; BASOPHILS ABSOLUTE 0.01 10/3/uL (0.0-0.16); EOSINOPHILS 0.2 %; EOSINOPHILS ABSOLUTE 0.02 10/3/uL (0.0-0.53); HEMOGLOBIN 8.6 g/dL (12.0-16.0); IMMATURE GRANULOCYTES 0.6 %; IMMATURE GRANULOCYTES ABSOLUTE 0.05 10/3/uL (0.0-0.11); LYMPHOCYTES 19.8 %; LYMPHOCYTES ABSOLUTE 1.61 10/3/uL (0.67-4.30); MEAN PLATELET VOLUME 8.9 fL (9.2-13.0); MONOCYTES 5.7 %; MONOCYTES ABSOLUTE 0.46 10/3/uL (0.21-1.20); NEUTROPHILS 73.6 %; NEUTROPHILS ABSOLUTE 5.97 10/3/uL (2.02-8.40); PLATELET COUNT 373 10/3/uL (150-400); RBC DISTRIBUTION WIDTH 20.8 % (12.0-16.0); RED CELL COUNT 3.13 10/6/uL (4.0-5.6); WHITE BLOOD CELLS 8.1 10/3/uL (4.5-10.5)
[2017-02-21 06:12] LABS: MANUAL DIFF NO %; MEAN CORPUS HGB CONC 33.1 g/dL (32.0-36.0); MEAN CORPUSCULAR HEMOGLOB 27.5 pg (26.0-34.0); MEAN CORPUSCULAR VOLUME 83.1 fL (80-100)
[2017-02-21 06:20] LABS: ALKALINE PHOSPHATASE 282 U/L (45-117); BUN (BLOOD UREA NITROGEN) 19 MG/DL (6-23); CALCIUM, SERUM 7.3 MG/DL (8.5-10.4); CHLORIDE, SERUM 105 MMOL/L (96-112); CO2 (CARBON DIOXIDE) 28 MMOL/L (24-34); CREATININE 0.24 MG/DL (0.55-1.02); DIRECT BILIRUBIN < 0.1 MG/DL (0.0-0.4); GFR AFRICAN AMERICAN 154 ML/MIN (>=60); GFR NON AFRICAN AMERICAN 133 ML/MIN (>=60); GLUCOSE, SERUM 197 MG/DL (60-99); PHOSPHORUS, SERUM 2.7 MG/DL (2.5-4.5); POTASSIUM, SERUM 4.1 MMOL/L (3.5-5.3); SGOT(AST) 30 U/L (5-40); SGPT(ALT) 101 U/L (5-65); SODIUM, SERUM 139 MMOL/L (135-148); TOTAL BILIRUBIN < 0.1 MG/DL (0-1.2); TOTAL PROTEIN 4.6 G/DL (6.0-8.5)
[2017-02-22 04:44] LABS: HEMATOCRIT 25.4 % (36.0-48.0); HEMOGLOBIN 8.2 g/dL (12.0-16.0); MEAN CORPUS HGB CONC 32.3 g/dL (32.0-36.0); MEAN CORPUSCULAR HEMOGLOB 27.7 pg (26.0-34.0); MEAN PLATELET VOLUME 8.7 fL (9.2-13.0); PLATELET COUNT 384 10/3/uL (150-400); RBC DISTRIBUTION WIDTH 20.7 % (12.0-16.0); RED CELL COUNT 2.96 10/6/uL (4.0-5.6); WHITE BLOOD CELLS 7.6 10/3/uL (4.5-10.5)
[2017-02-22 04:47] LABS: MANUAL DIFF YES %; MEAN CORPUSCULAR VOLUME 85.8 fL (80-100)
[2017-02-22 04:58] LABS: BUN (BLOOD UREA NITROGEN) 18 MG/DL (6-23); CALCIUM, SERUM 7.6 MG/DL (8.5-10.4); CHLORIDE, SERUM 104 MMOL/L (96-112); CO2 (CARBON DIOXIDE) 25 MMOL/L (24-34); CREATININE 0.17 MG/DL (0.55-1.02); GFR AFRICAN AMERICAN 173 ML/MIN (>=60); GFR NON AFRICAN AMERICAN 149 ML/MIN (>=60); GLUCOSE, SERUM 207 MG/DL (60-99); PHOSPHORUS, SERUM 2.5 MG/DL (2.5-4.5); POTASSIUM, SERUM 3.8 MMOL/L (3.5-5.3); SGOT(AST) 42 U/L (5-40); SGPT(ALT) 91 U/L (5-65); SODIUM, SERUM 138 MMOL/L (135-148); TOTAL BILIRUBIN 0.1 MG/DL (0-1.2); TOTAL PROTEIN 4.5 G/DL (6.0-8.5)
[2017-02-22 05:05] LABS: A/G RATIO 0.4 (0.7-1.9); ALBUMIN 1.3 G/DL (3.5-5.0); ALKALINE PHOSPHATASE 228 U/L (45-117); GLOBULIN 3.2 G/DL (2.5-4.1)
[2017-02-22 05:49] LABS: BAND NEUTROPHILS 18 %; LYMPHOCYTES 24 %; LYMPHOCYTES ABSOLUTE (CALC) 1.82 10/3/uL (0.67-4.30); NEUTROPHILS ABSOLUTE (CALC) 5.78 10/3/uL (2.02-8.40); SEGMENTED NEUTROPHIL (0) 58 %; TOTAL NUCLEATED CELLS 100
[2017-02-22 05:50] LABS: PLATELET ESTIMATE ADQ (ADEQUATE); RBC MORPHOLOGY NORM (NORMAL)
[2017-02-23 06:29] LABS: BUN (BLOOD UREA NITROGEN) 21 MG/DL (6-23); CALCIUM, SERUM 7.7 MG/DL (8.5-10.4); CHLORIDE, SERUM 100 MMOL/L (96-112); CO2 (CARBON DIOXIDE) 27 MMOL/L (24-34); PHOSPHORUS, SERUM 2.6 MG/DL (2.5-4.5); POTASSIUM, SERUM 4.1 MMOL/L (3.5-5.3); SODIUM, SERUM 137 MMOL/L (135-148)
[2017-02-23 06:32] LABS: CREATININE 0.15 MG/DL (0.55-1.02); GFR AFRICAN AMERICAN 180 ML/MIN (>=60); GFR NON AFRICAN AMERICAN 155 ML/MIN (>=60)
[2017-02-23 06:33] LABS: GLUCOSE, SERUM 43 MG/DL (60-99)
[2017-02-23 06:50] LABS: PREALBUMIN 11.7 MG/DL (17.0-43.0)
== END 2017-02-23 21:17 | DRG 417 ==
LOC: ER 13:24 → 5SO 15:55
PROVIDERS: Emergency Medicine; Hospitalist; Internal Medicine; Internal Medicine Gastroenterology; Nurse Practitioner Family; Specialist
PROC: 3E0436Z Introduction of Nutritional Substance into Central Vein, Percutaneous Approach (ICD-10-PCS; 2017-02-13)
PROC: 02HV33Z Insertion of Infusion Device into Superior Vena Cava, Percutaneous Approach (ICD-10-PCS; 2017-02-13)
PROC: 4A02X4A Measurement of Cardiac Electrical Activity, Guidance, External Approach (ICD-10-PCS; 2017-02-13)
PROC: 30233N1 Transfusion of Nonautologous Red Blood Cells into Peripheral Vein, Percutaneous Approach (ICD-10-PCS; 2017-02-14)
PROC: 0FT44ZZ Resection of Gallbladder, Percutaneous Endoscopic Approach (ICD-10-PCS; principal; 2017-02-21 13:30)
DX: K80.11 Calculus of gallbladder with chronic cholecystitis with obstruction (principal); E43 Unspecified severe protein-calorie malnutrition; B37.0 Candidal stomatitis; K51.90 Ulcerative colitis, unspecified, without complications; E87.1 Hypo-osmolality and hyponatremia; N39.0 Urinary tract infection, site not specified; E86.9 Volume depletion, unspecified; Z88.1 Allergy status to other antibiotic agents; Z79.899 Other long term (current) drug therapy; I10 Essential (primary) hypertension; D63.8 Anemia in other chronic diseases classified elsewhere; B96.20 Unspecified Escherichia coli [E. coli] as the cause of diseases classified elsewhere; R73.9 Hyperglycemia, unspecified; R68.81 Early satiety
CPT/HCPCS: 36415; 36569; 71010; 74176; 76700; 78227; 80048; 80053; 80076; 81001; 82330; 82550; 82962; 83605; 83615; 83690; 83735; 84100; 84134; 84145; 84155; 84165; 84478; 84484; 84703; 84999; 85014; 85018; 85025; 85610; 85652; 85730; 86141; 86706; 86708; 86803; 86850; 86900; 86901; 86920; 87040; 87045; 87046; 87046-59; 87077; 87086; 87186; 87328; 87329; 87493; 87493-59; 87899; 87899-59; 88304; 89055; 89125; 96374; 97110-GP; 97116-GP; 97161-GP; 97164-GP; 97530-GP; 99285; A9270-GY; A9537; C1751; J1720; J1940; J1956; J2250; J2405; J2543; J2710; J2805; J2920; J3010; P9016; P9040; P9047; Q9967

== ENCOUNTER 2017-03-06 16:18 | Emergency (ER) | payer OTHER ==
[2017-03-06 14:42] LABS: HEMOGLOBIN 7.3 g/dL (12.0-16.0); MEAN CORPUS HGB CONC 33.5 g/dL (32.0-36.0); MEAN CORPUSCULAR HEMOGLOB 27.2 pg (26.0-34.0); MEAN PLATELET VOLUME 8.6 fL (9.2-13.0); PLATELET COUNT 446 10/3/uL (150-400); RBC DISTRIBUTION WIDTH 19.1 % (12.0-16.0); RED CELL COUNT 2.68 10/6/uL (4.0-5.6)
[2017-03-06 14:43] LABS: ER CBC TAT 0 Hrs 05 Mins; HEMATOCRIT 21.8 % (36.0-48.0); MANUAL DIFF YES %; MEAN CORPUSCULAR VOLUME 81.3 fL (80-100); WHITE BLOOD CELLS 11.3 10/3/uL (4.5-10.5)
[2017-03-06 14:53] LABS: BUN (BLOOD UREA NITROGEN) 14 MG/DL (6-23); CALCIUM, SERUM 7.5 MG/DL (8.5-10.4); CHLORIDE, SERUM 101 MMOL/L (96-112); CO2 (CARBON DIOXIDE) 22 MMOL/L (24-34); CREATININE 0.28 MG/DL (0.55-1.02); GFR AFRICAN AMERICAN 147 ML/MIN (>=60); GFR NON AFRICAN AMERICAN 126 ML/MIN (>=60); GLUCOSE, SERUM 127 MG/DL (60-99); POTASSIUM, SERUM 4.2 MMOL/L (3.5-5.3); SODIUM, SERUM 133 MMOL/L (135-148)
[2017-03-06 14:58] LABS: LACTATE 1.5 MMOL/L (0.3-2.4)
[2017-03-06 15:16] LABS: BAND NEUTROPHILS 29 %; ER DIFF TAT 0 Hrs 38 Mins; LYMPHOCYTES 11 %; LYMPHOCYTES ABSOLUTE (CALC) 1.24 10/3/uL (0.67-4.30); MONOCYTES 4 %; MONOCYTES ABSOLUTE (CALC) 0.45 10/3/uL (0.21-1.20); NEUTROPHILS ABSOLUTE (CALC) 9.61 10/3/uL (2.02-8.40); SEGMENTED NEUTROPHIL (0) 56 %; TOTAL NUCLEATED CELLS 100
[2017-03-06 15:17] LABS: ANISOCYTOSIS 1+ (5-10/OIF) (0-5/OIF); PLATELET ESTIMATE SLT INC (ADEQUATE)
[2017-03-06 15:51] LABS: PROCALCITONIN 0.29 ng/mL (<0.5)
[~2017-03-06 16:18] MED LIST changes: +*UNABLE3; +ANUSOL-HC25 MG PR; +CENTRUM PO; +CYANO1000T PO; +HUMIRA PEN SC; +IMODIUM LIQUID PO; +LOM PO; +PROCTOZONE HC 2.5% PR; +ZOFRAN8 PO
[2017-03-06 16:39] LABS: WBC (NOT ORDERED) (RFLEX) 0 (0-5)
[2017-03-06 16:57] LABS: ASCORBIC ACID (UR NOT ORDER) NEG (NEG); BILIRUBIN, URINE NEGATIVE (NEG); ER URINALYSIS TAT 0 Hrs 18 Mins; KETONE, URINE NEGATIVE (NEG); LEUKOCYTE ESTERASE(NOT OR NEG (NEG)
[2017-03-06 16:58] LABS: NITRITE (URINE) NEG (NEG)
== END 2017-03-07 00:40 | disposition home or self-care (01) ==
LOC: ER 16:18
PROVIDERS: Emergency Medicine
DX: D64.9 Anemia, unspecified (principal); K52.9 Noninfective gastroenteritis and colitis, unspecified; I10 Essential (primary) hypertension; Z88.8 Allergy status to other drugs, medicaments and biological substances; Z79.899 Other long term (current) drug therapy; Z79.52 Long term (current) use of systemic steroids
CPT/HCPCS: 36415; 36430; 71010; 80048; 81001; 83605; 84145; 85025; 86850; 86900; 86901; 86920; 87040; 93005; 96374; 99285; J2405; P9016

== ENCOUNTER 2017-03-22 13:58 | Inpatient (IN) | payer OTHER ==
--- NOTE | ~2017-03-22 | OP ---
Record Of Operation [place] [id number] [facility] [place]. [address] NAME: RUPAL CHAN : 57 STATUS : ADM IN PAT#: [id number] AGE: 62 ADM/REG DATE : 03/22/17 MR#: [id number] REPORT SERV DATE: 03/26/17 DICTATED BY: TEMO STEWART DATE: 03/26/17 REPORT STATUS : Draft TRANSCRIBED BY: MODL DATE: 03/26/17 DATE OF PROCEDURE: 03/26/2017 PREOPERATIVE DIAGNOSES: 1. Status post total colectomy. 2. Intraabdominal sepsis. POSTOPERATIVE DIAGNOSES: 1. Status post total colectomy. 2. Intraabdominal sepsis. PROCEDURES: 1. Reopening recent laparotomy. 2. Abdominal washout. 3. Ileostomy creation. 4. Small bowel resection. ATTENDING: Temo Stewart M.D. CHIEF RESIDENT: Severiano Haji M.D. ANESTHETIC: General. IV FLUIDS: Approximately 1500 mL. ESTIMATED BLOOD LOSS: Less than 25 mL. COMPLICATIONS: None. COUNTS: Correct. SPECIMEN: Small bowel. BRIEF HISTORY: This patient is a 62-year-old female, who presented on with sepsis, pneumoperitoneum, was taken to the operating room, underwent exploratory laparotomy and found to have colonic perforations. Her history of UC and current perforations required a total abdominal colectomy. She was also on discontinuity and plan to return for wash out and ostomy creation at later date. DESCRIPTION OF PROCEDURE: The patient was brought to operating room, placed supine on the operating table. Anesthetic was administered. The negative pressure wound dressing was removed from the abdomen. A time-out was held. Intraabdominal contents were inspected. All the bowel and staple lines appeared viable. The liver and stomach looked to be within normal limits. Spleen had some patchy areas of infarct. Abdomen was irrigated with approximately 6 L of warm saline. The distal portion of the remaining ileum was resected approximately 10 cm in total length. The mesentery was serially clamped, divided, and Record Of Operation [place] [id number] [facility] [place]. [address] NAME: RUPAL CHAN : 57 STATUS : ADM IN PAT#: [id number] AGE: 62 ADM/REG DATE : 03/22/17 MR#: [id number] REPORT SERV DATE: 03/26/17 DICTATED BY: TEMO STEWART DATE: 03/26/17 REPORT STATUS : Draft TRANSCRIBED BY: KEARA DATE: 03/26/17 ligated. Specimen was passed off. Ileostomy site was selected just below the umbilicus, right of the midline, lateral border of the rectus. A cylinder of skin and soft tissue was removed. The fascia was incised in a cruciate fashion, the muscle split and peritoneum opened. Defect was felt large enough to accommodate distal ileum. This ileum was pulled up through the site and our attention turned to closure of the abdomen. The fascia was closed in interrupted fashion with #1 Vicryl. Wound will be irrigated with pulse lavage and stapled loosely before being dressed with 4x4s and tape. The ileum was entered through an ostomy in a Bridget fashion with 3-0 Vicryl and ostomy appliance placed. The patient tolerated procedure well and transferred back to the intensive care unit in guarded condition. DICTATED BY: Severiano Haji MD ND/KEARA Temo Stewart MD / [id number] CC: Nader Coats IV, M.D.
--- NOTE | ~2017-03-22 | OP ---
Record Of Operation [facility] [address] [place]. [address] NAME: RUPAL CHAN : 57 STATUS : ADM IN [facility]#: [id number] AGE: 62 ADM/REG DATE : 03/22/17 MR#: [id number] REPORT SERV DATE: 03/27/17 DICTATED BY: SEE CARVALHO DATE: 03/27/17 REPORT STATUS : Draft TRANSCRIBED BY: KEARA DATE: 03/27/17 DATE OF PROCEDURE: 03/27/2017 PREOPERATIVE DIAGNOSIS: Acute kidney injury. POSTOPERATIVE DIAGNOSIS: Acute kidney injury. PROCEDURE: Right IJ Vas-Cath. SURGEON: See Carvalho M.D. REGISTERED NURSE RENAL: None. ANESTHESIA: Local. INDICATIONS: The patient is a lady who had an intraabdominal operation and has acute kidney injury. She now needs dialysis catheter, so her family was consented for intervention. DESCRIPTION OF PROCEDURE: After informed consent was obtained, the patient's right neck was prepped and draped in usual sterile fashion. Ultrasound-guided access was obtained of the right internal jugular vein. The ultrasound image was documented electronically. I passed a wire centrally. I made a small skin incision. I dilated the tract. I inserted a 15-cm Vas-Cath. It was sutured in place. It aspirated and flushed well. The patient tolerated the procedure well without any intraprocedural complications noted. DEEPA/KEARA See Carvalho M.D. / [id number] CC: Nader Coats IV, M.D.
--- NOTE | ~2017-03-22 | CN ---
Consultation Report [facility] [address] [place]. [address] NAME: RUPAL CHAN : 57 STATUS : ADM IN [facility]#: [id number] AGE: 62 ADM/REG DATE : 03/22/17 MR#: [id number] REPORT SERV DATE: 03/23/17 DICTATED BY: JOSUE LOPEZ DATE: 03/23/17 REPORT STATUS : Draft TRANSCRIBED BY: MODL DATE: 03/23/17 NEPHROLOGY CONSULTATION DATE OF CONSULTATION: 03/23/2017 INDICATION FOR CONSULTATION: Decreasing urine output and acidosis. HISTORY OF PRESENT ILLNESS: Ms. Chan is a 62-year-old female, who was transferred from [facility] after findings of pneumomediastinum and pneumoperitoneum on CT scan. She is seen for decreasing urine output and acidosis. The patient recently underwent a laparoscopic cholecystectomy and was residing in a assisted in [place]. She is followed for ulcerative colitis and is treated with Humira with last dose on 03/16/2017. The ulcerative colitis was diagnosed in 12/2016. She was transported by [employer] and was acidotic with ABG pH of 7.11 and had a narrow complex tachycardia, initially concerned about V-tach, but subsequently identified as atrial fibrillation with RVR and was in shock on Levophed and epinephrine. She was noted to have right mainstem bronchus intubation and underwent evaluation for possible esophageal injury and bronchus injury, which was negative. She subsequently required a right total colectomy for perforated viscus. She was noted to have significant abdominal soilage. She currently is on vasopressin and Levophed. She required transfusion for hemoglobin of 5.4, which has risen to 9.4. Lactate level was 12.7. CO2 was 14, creatinine was 0.89, rising to 1.0 with a WBC of 20. There was some concern about her mental status, her ammonia level was noted to be markedly elevated, and she had dilated sluggish pupils. PAST MEDICAL HISTORY: Ulcerative colitis, diagnosed in 12/2016, on Humira therapy, last dose 03/16/2017; recent lap mono; history of peptic ulcer disease; depression; fatty liver; hypothyroidism; hypertension. PAST SURGICAL HISTORY: Status post removal of cervical CA. SOCIAL HISTORY: The patient recently residing in [facility] following laparoscopic cholecystectomy. No history of tobacco use, alcohol use, or IV drugs. FAMILY HISTORY: Significant for Crohn's and hypertension. Chart reflects no end-stage renal disease. ALLERGIES: TO [facility] MEDICATIONS PER CHART. MEDICATIONS AT TRANSFER: Folic acid, Synthroid, hyoscyamine, multivitamin, B12, lactobacillus, Welchol, prednisone, iron, Humira, Pepcid, Lomotil. REVIEW OF SYSTEMS: Unable to obtain. Consultation Report [address] [place]. [address] NAME: RUPAL CHAN : 57 STATUS : ADM IN [facility]#: [id number] AGE: 62 ADM/REG DATE : 03/22/17 MR#: [id number] REPORT SERV DATE: 03/23/17 DICTATED BY: JOSUE LOPEZ DATE: 03/23/17 REPORT STATUS : Draft TRANSCRIBED BY: KEARA DATE: 03/23/17 PHYSICAL EXAMINATION: GENERAL: The patient is sedated on vent with ET and OG tube in place. VITAL SIGNS: Blood pressure 70/53, temp 99.9, respiratory rate 14 per vent, pulse 118. HEENT: Pupils dilated, sluggishly reactive. Mouth with ET and OG tube in place. Eyes with no scleral icterus. NECK: No thyromegaly or masses. CHEST/LUNGS: Bilateral crackles. Few scattered rhonchi. CARDIAC: Regular tachycardia. No gallop, rub, or murmur appreciated. ABDOMEN: Quiet. No distention. Appropriately tender. Unable to appreciate hepatosplenomegaly. BREASTS: Not performed. PELVIC: Not performed. RECTAL: Not performed. EXTREMITIES: 1+ edema. No calf tenderness. DERMIS: No rash. No skin lesions. NEUROLOGIC: Unable to assess due to sedation. MUSCULOSKELETAL: No deformity. IMPRESSION: 1. Oliguric acute kidney injury, likely ischemic acute tubular necrosis related to shock/sepsis. 2. Ulcerative colitis, diagnosed in 12/2016, on Humira therapy. 3. Perforated viscus, requiring total colectomy. 4. Pneumomediastinum with right mainstem bronchus intubation, cleared of injury prior to colectomy. 5. Shock/severe sepsis. 6. Recent atrial fibrillation with rapid ventricular response. 7. Recent laparoscopic cholecystectomy. 8. Lactic acid/metabolic acidosis. 9. Encephalopathy, possible neurologic injury versus hepatic/metabolic encephalopathy. 10.Respiratory failure, on vent. 11.Acute blood loss anemia. 12.Fatty liver. 13.Depression. 14.History of peptic ulcer disease. 15.Elevated ammonia. 16.Hypothyroidism. 17.Hypertension. PLAN: 1. Labs. 2. Bicarb infusion. 3. Monitor for CRRT. 4. Follow neuro status and ammonia level. Consultation Report [place] [id number] [facility] [address] NAME: RUPAL CHAN : 57 STATUS : ADM IN [facility]#: [id number] AGE: 62 ADM/REG DATE : 03/22/17 MR#: [id number] REPORT SERV DATE: 03/23/17 DICTATED BY: JOSUE LOPEZ DATE: 03/23/17 REPORT STATUS : Draft TRANSCRIBED BY: KEARA DATE: 03/23/17 CG/KEARA Josue Lopez M.D. / [id number] CC: Nader Coats IV, M.D.
--- NOTE | ~2017-03-22 | OP ---
Record Of Operation [facility] [address] [place] [place]. [address] NAME: RUPAL CHAN : 57 STATUS : ADM IN PAT#: [id number] AGE: 62 ADM/REG DATE : 03/22/17 MR#: [id number] REPORT SERV DATE: 03/23/17 DICTATED BY: TEMO STEWART DATE: 03/22/17 REPORT STATUS : Draft TRANSCRIBED BY: MODL DATE: 03/22/17 DATE OF PROCEDURE: 03/22/2017 PREOPERATIVE DIAGNOSES: 1. Pneumoperitoneum. 2. Pneumomediastinum. 3. Septic shock. 4. Ulcerative colitis. POSTOPERATIVE DIAGNOSES: Pneumoperitoneum and septic shock secondary to colonic perforation with fulminant colitis. OPERATION: 1. Exploratory laparotomy. 2. Total abdominal colectomy. 3. Negative pressure wound dressing. ATTENDING: Temo Stewart MD. CHIEF RESIDENT: Sudeep Haji MD ANESTHESIA: General. IV FLUIDS: 1500 mL of crystalloid, 500 mL of albumin, and 2 units of FFP. COMPLICATIONS: None. COUNTS: Correct. SPECIMEN: 1. Left colon. 2. Transverse and right colon. FINDINGS: Multiple perforations of the right colon and cecum. DESCRIPTION OF PROCEDURE: The patient was brought to operating room, placed on the operative table. Anesthetic was administered. The abdomen was prepped and draped in standard sterile fashion. A time-out was held. Decision will be made in the midline extending below the umbilicus. Cautery was used again to dissect down to the fascia which was opened following the incision. This incision was then extended up to the xiphoid and down to 4 cm above the pubis. Bookwalter retractor was placed. The purulent material was noted in the abdomen prior to chas stool drainage from her right colon and cecum. The colonic perforations were closed with silk suture to prevent continued contamination. The remaining intraabdominal contents were inspected. Next, we divided the ileum just 3 cm proximal to the ileocolic junction. The right colon was mobilized by dissecting just proximal to the white line of Toldt using LigaSure at the left colonic mesentery was divided up towards the hepatic Record Of Operation [facility] [address] [place]. [address] NAME: RUPAL CHAN : 57 STATUS : ADM IN PAT#: [id number] AGE: 62 ADM/REG DATE : 03/22/17 MR#: [id number] REPORT SERV DATE: 03/23/17 DICTATED BY: TEMO STEWART DATE: 03/22/17 REPORT STATUS : Draft TRANSCRIBED BY: KEARA DATE: 03/22/17 flexure. Next, the gastrocolic ligament was divided and connects to the lesser sac. In a similar fashion, the colon was continued to mobilize 2 inches proximal to the splenic flexure where it was divided and passed off as an specimen. Next, the rectum was divided just above the sacral promontory after creating a defect in the mesentery. This division was achieved with a TL60 stapler. The colon was freed from the left lateral wall in a similar fashion with electrocautery which was quite difficult given the level of adhesions of the colon to the sidewall. Once mobilized, the mesentery again was divided with the LigaSure high underneath the colon in an effort to avoid injuring the ureter. It was taken up to the splenic flexure, and the specimen removed and passed off. Intraabdominal space was irrigated copiously with 10 L of sterile saline. Given the patient's hemodynamic instability, we opted to place negative pressure wound dressing in a standard Eddie fashion. Once an adequate seal was achieved, the procedure was terminated. The patient was transferred back to the ICU in critical condition. DICTATED BY: Severiano Haji MD ND/KEARA Temo Stewart MD / [id number] CC: Nader Coats IV, M.D.
--- NOTE | ~2017-03-22 | CN ---
Consultation Report [facility] [address] [place]. [address] NAME: RUPAL CHAN : 57 STATUS : ADM IN [facility]#: [id number] AGE: 62 ADM/REG DATE : 03/22/17 MR#: [id number] REPORT SERV DATE: 03/23/17 DICTATED BY: TEMO STEWART DATE: 03/22/17 REPORT STATUS : Draft TRANSCRIBED BY: MODL DATE: 03/22/17 CONSULT NOTE DATE OF CONSULTATION: 03/22/2017 REASON FOR CONSULTATION: Pneumoperitoneum. HISTORY OF PRESENT ILLNESS: The patient is a 62-year-old female with known ulcerative colitis treated on Humira and recent laparoscopic cholecystectomy one month earlier who was found to have altered mental status at her [facility] earlier today. She was taken to [facility] in [place] where she was again found to have altered mental status, intubated, started resuscitation and began to obtain imaging including a CT of the head which showed no acute bleed and CT of the chest, abdomen, and pelvis which clearly demonstrates substantial pneumomediastinum, right mainstem bronchus intubation, pneumoperitoneum. The patient was transferred to [facility] via [facility] during which time she received 2 L of IV fluids and intermittent administration of epinephrine for persistent systolic blood pressure less than 70. Upon arrival, the patient initially was in ventricular tachycardia but autoconverted to sinus tachycardia prior to any intervention. The patient was begun on a Levophed drip as well as vasopressin and epinephrine for refractory hypertension. Invasive monitoring was obtained as well as access. Prior to arrival, the ET tube had been withdrawn to a level above the [place]. The patient's functional status had been consistent with no neurologic function more substantial than slow pupillary constriction. PAST MEDICAL HISTORY: Please refer to the patient's chart. PAST SURGICAL HISTORY: Please refer to the patient's chart. FAMILY HISTORY: Noncontributory. SOCIAL HISTORY: Unknown. MEDICATIONS: Medication list was reviewed. ALLERGIES: PROPARACAINE. REVIEW OF SYSTEMS: Unable to obtain. PHYSICAL EXAMINATION: VITAL SIGNS: Pulse 114, blood pressure 78/48, respiratory rate 18, and O2 sat 80%. GENERAL: Intubated, but not sedated. HEENT: Normocephalic, atraumatic. Pupils are equal and dilated 7 mm bilaterally. Slowly responsive to light. NECK: Trachea is midline. No substantial crepitus. Consultation Report [facility] [address] [place]. [address] NAME: RUPAL CHAN : 57 STATUS : ADM IN PAT#: [id number] AGE: 62 ADM/REG DATE : 03/22/17 MR#: [id number] REPORT SERV DATE: 03/23/17 DICTATED BY: TEMO STEWART DATE: 03/22/17 REPORT STATUS : Draft TRANSCRIBED BY: KEARA DATE: 03/22/17 CHEST: Has tachycardia. Coarse breath sounds, decreased on left. ABDOMEN: Distended, tympanitic. No grimace. RECTAL: Deferred. GENITALIA: Deferred. EXTREMITIES: Moves all. NEUROLOGIC: Pupillary constriction intact, but unable to illicit movement from painful stimuli. LABORATORY DATA: White blood cell count 54, hematocrit 35. INR 2.4, lactate 8, creatinine 1.0. ASSESSMENT: This patient is a 62-year-old female with ulcerative colitis who likely has pneumoperitoneum from a perforated viscus. She is in septic shock. The level of mediastinal air and upper chest and neck crepitus was concerning for esophageal injury as well. PLAN: After discussion with the patient's son, wished to proceed with aggressive measures. Given the patient's condition, an exploratory laparotomy is warranted. The risks and benefits were reviewed and he agrees to proceed. INO/KEARA Temo Stewart MD / [id number] CC: Nader Coats IV, M.D.
--- NOTE | ~2017-03-22 | CN ---
Consultation Report [facility] [address] [place]. [address] NAME: RUPAL CHAN : 57 STATUS : ADM IN [facility]#: [id number] AGE: 62 ADM/REG DATE : 03/22/17 MR#: [id number] REPORT SERV DATE: 03/28/17 DICTATED BY: SEE CARVALHO DATE: 03/27/17 REPORT STATUS : Draft TRANSCRIBED BY: MODL DATE: 03/27/17 CONSULT NOTE DATE OF CONSULTATION: 03/27/2017 REASON FOR CONSULTATION: 1. Dialysis access. 2. Ischemic foot. BRIEF HISTORY: The patient is a 62-year-old female with past medical history significant for ulcerative colitis and hypertension, who recently had a cholecystectomy up in [place]. She came in to [facility] in transfer from [facility] with pneumoperitoneum and had a colectomy with ileostomy. She has been sick in the hospital for the past week now. She is on vasoactive medications and now has ischemic appearing foot. She also has renal failure with essentially no urine output. I was consulted for dialysis access evaluation as well as evaluation of her foot. The patient is unable to provide any history as she is intubated and sedated. PAST MEDICAL HISTORY: As above. She also has a history of peptic ulcer disease, fatty liver, depression, and hypothyroidism. SURGICAL HISTORY: Includes her recent abdominal surgeries for her perforated colon. She also has had a laparoscopic cholecystectomy and removal of cervical cancer. SOCIAL HISTORY: She lives in [place] in a nursing facility. There is no history of tobacco, alcohol, or drug use. FAMILY HISTORY: Significant for Crohn disease and hypertension. ALLERGIES: UNKNOWN. REVIEW OF SYSTEMS: A complete review of systems could not be performed as she is intubated and sedated. PHYSICAL EXAMINATION: VITAL SIGNS: Documented on the chart and were reviewed. GENERAL: The patient is sedated, in no apparent distress. HEAD/NECK: Significant for a nasogastric tube that is in place. HEART: Has a regular rate and rhythm, but she is hypotensive, necessitating Levophed and vasopressin. LUNGS: Coarse. She is on the ventilator. ABDOMEN: Soft, nondistended with an ostomy in place. ABDOMEN: Now closed. EXTREMITIES: She has normal upper extremity pulses. She has weak femoral pulses. I do not appreciate more distal pulses. She does have anasarca with pitting edema in her legs. She Consultation Report [facility] [address] [place]. [address] NAME: RUPAL CHAN : 57 STATUS : ADM IN PAT#: [id number] AGE: 62 ADM/REG DATE : 03/22/17 MR#: [id number] REPORT SERV DATE: 03/28/17 DICTATED BY: SEE CARVALHO DATE: 03/27/17 REPORT STATUS : Draft TRANSCRIBED BY: MODL DATE: 03/27/17 has cyanosis of her forefoot and in fact the ischemic changes are fairly advanced. NEUROLOGIC: Her neurological examination could not be assessed because of her sedation. MUSCULOSKELETAL: No flexion contractures. LABORATORY DATA: Her laboratory investigations are consistent with renal failure. ASSESSMENT AND PLAN: It looks like this lady has acute kidney injury and has ischemic foot likely related to her vasoactive medications. There may be some underlying atherosclerosis of her lower extremities also. She needs a Vas-Cath for dialysis. I talked to her family about the risks, benefits, and alternatives of intervention. She had a very high mortality risk not specifically from the Vas-Cath. She needs her toes painted with Betadine and we need to wean her vasoactive medications as quickly as possible. We will offload her heels off the bed. She has a high chance of losing her forefoot if not her legs, but there is no acute intervention warranted, particularly in light of her critical illness. HEALTHCARE TECHNICIAN/MODL See Carvalho M.D. / [id number] CC: Nader Coats IV, M.D.
--- NOTE | ~2017-03-22 | CN ---
Consultation Report [facility] [address] [place]. [address] NAME: RUPAL CHAN : 57 STATUS : ADM IN [facility]#: [id number] AGE: 62 ADM/REG DATE : 03/22/17 MR#: [id number] REPORT SERV DATE: 03/23/17 DICTATED BY: JARED HOLDER JR. DATE: 03/22/17 REPORT STATUS : Draft TRANSCRIBED BY: MODL DATE: 03/22/17 CONSULTATION NOTE DATE OF CONSULTATION: 03/22/2017 REASON FOR CONSULTATION: Evaluation for emergent bronchoscopy to rule out airway injury. PHYSICIAN REQUESTING CONSULTATION: Dr. Lito Stewart. BRIEF HISTORY: 62-year-old female with known ulcerative colitis complicated by severe protein malnutrition. One month ago, she had a laparoscopic cholecystectomy for acute cholecystitis. [facility] and further recovery. She had an acute change in her situation today which led to emergent intubation at [facility]. There was also a brief period of ventricular tachycardia and cardioversion. The patient had a CT scan performed post intubation which showed a pneumomediastinum as well as a pneumoperitoneum. She is hemodynamically unstable. She was on epinephrine and transferred from [facility] back to [facility]. I am seeing her in the emergency room. The patient is intubated and asleep and unstable. PAST MEDICAL HISTORY: Significant for the known ulcerative colitis. Recent cholecystectomy. Protein calorie malnutrition. Acute abdomen with pneumoperitoneum, recent CPR with the mediastinal subcutaneous emphysema. MEDICATIONS: Unknown. ALLERGIES: UNKNOWN. SOCIAL HISTORY: Unknown given the patient is not able to communicate and intubated. FAMILY HISTORY: Also unknown given the patient was intubated. REVIEW OF SYSTEMS: Unable to be obtained secondary to given the patient being intubated in the operating room. PHYSICAL EXAMINATION: GENERAL: This is an older than age appearing 62-year-old female, intubated and sedated. HEAD, EYES, EARS, NOSE, AND THROAT: Negative. NECK: Supple. No lymphadenopathy. There was no crepitus palpated. CHEST: Decreased breath sounds left base. CARDIOVASCULAR: Cardiovascular exam revealed no murmurs or rubs. ABDOMEN: Distended and rigid in the upper abdominal quadrants. EXTREMITIES: Showed edema. NEUROLOGIC: Unable to be obtained. Consultation Report [facility] [address] [place]. [address] NAME: RUPAL CHAN : 57 STATUS : ADM IN PAT#: [id number] AGE: 62 ADM/REG DATE : 03/22/17 MR#: [id number] REPORT SERV DATE: 03/23/17 DICTATED BY: JARED HOLDER JR. DATE: 03/22/17 REPORT STATUS : Draft TRANSCRIBED BY: KEARA DATE: 03/22/17 IMPRESSION: This is a 62-year-old female status post recent code and emergent intubation in which the endotracheal tube was placed in the right mainstem bronchus. She does have subcutaneous emphysema in the upper mediastinum along her neck. I suspect this was likely related to traumatic intubation. We will plan on proceeding on with bronchoscopic evaluation in the operating room. If it is a cervical or a posterior pharyngeal injury, she is going to be n.p.o. anyway, we would just watch this conservatively. Most likely source of her problem is in her abdomen. After bronchoscopy, Dr. Lito Stewart will explore her abdomen. GLORIA/KEARA Jared Holder Jr., M.D. / [id number] CC: Nader Coats IV, M.D.
--- NOTE | ~2017-03-22 | OP ---
Record Of Operation [facility] [address] [place]. [address] NAME: RUPAL CHAN : 57 STATUS : ADM IN [facility]#: [id number] AGE: 62 ADM/REG DATE : 03/22/17 MR#: [id number] REPORT SERV DATE: 03/22/17 DICTATED BY: GIORGI COATS IV DATE: 03/22/17 REPORT STATUS : Draft TRANSCRIBED BY: MODSheela DATE: 03/22/17 DATE OF PROCEDURE: 03/22/2017 Arterial Line Note Critical Care time seen is 1420 to 1640, minus 20 minutes of time for arterial line placement for a total of 120 minutes of Critical Care. PREOPERATIVE DIAGNOSIS: Right arterial line placement attempted. Right then, successfully placed left for a critically ill patient with inability to measure blood pressure and need for intensive monitoring. POSTOPERATIVE DIAGNOSIS: Right arterial line placement attempted. Right then, successfully placed left for a critically ill patient with inability to measure blood pressure and need for intensive monitoring, with a successful placement of a left femoral arterial line. PROCEDURE: Placement of a femoral arterial line attempted, first on the right then, successful on the left. INDICATIONS: A critically ill patient with hypotension, difficulty obtaining blood pressure with need for central arterial access for continuous monitoring. CONTRAINDICATIONS: None. CONSENT: No consent is obtained as there is no family available. The patient was unresponsive and this is a medically necessary procedure. PREOPERATIVE LABS: Platelet count was 177,000. INR is 2.4. METROPOLITAN EDITOR: Giorgi Coats M.D. METHOD: The patient was in the supine position. The SonoSite unit was used to localize the femoral artery and vein first on the right. The artery was very small, sitting just medial to the vein. The area was prepped with chlorhexidine and sterilely draped. Using SonoSite guidance, the introducer needle appeared to advance into the artery. The patient was hypotensive at that time with very bright red blood. However, did not appear to be pulsatile. The catheter was placed while we were waiting for the results of an i-STAT. The i-STAT demonstrated pH 7.30, pCO2 of 38, with a PO2 of 50. However, there was no arterial waveform when the catheter was hooked to a pressure bag and a monitor. Immediately, the left groin was prepped and sterilely draped. Again, the artery was localized with the SonoSite unit. Using SonoSite guidance, the introducer needle was advanced into the artery with excellent arterial blood flow at this time. Using modified Seldinger technique, the guidewire was advanced, and the catheter was advanced over the guidewire and secured sterilely. There was excellent arterial waveform, which will now be used for resuscitation and obtaining blood. Wasted blood from both procedures was approximately 15 mL. Once the left femoral A-line was secured, the right line was removed which was likely the femoral Record Of [address] [place]. [address] NAME: RUPAL CHAN : 57 STATUS : ADM IN PAT#: [id number] AGE: 62 ADM/REG DATE : 03/22/17 MR#: [id number] REPORT SERV DATE: 03/22/17 DICTATED BY: GIORGI COATS IV DATE: 03/22/17 REPORT STATUS : Draft TRANSCRIBED BY: KEARA DATE: 03/22/17 vein. The patient otherwise tolerated the procedure. There was no hematoma. CLAUDINE/KEARA Giorgi Coats IV, M.D. / [id number] CC: Giorgi Coats IV, M.D.
--- NOTE | ~2017-03-22 | CN ---
Consultation Report [facility] [address] [place] [place]. [address] NAME: RUPAL CHAN : 57 STATUS : ADM IN [facility]#: [id number] AGE: 62 ADM/REG DATE : 03/22/17 MR#: [id number] REPORT SERV DATE: 03/24/17 DICTATED BY: HALLEY BARRY DATE: 03/24/17 REPORT STATUS : Draft TRANSCRIBED BY: MODL DATE: 03/24/17 INFECTIOUS DISEASE CONSULT DATE OF CONSULTATION: REASON FOR REFERRAL: Evaluation and treatment of septic shock. HISTORY OF PRESENT ILLNESS: The patient is a 62-year-old female. She has history of hypertension, peptic ulcer disease, fatty liver, and recently diagnosed ulcerative colitis. She was admitted several times over recent months. She had exacerbation in early January and was admitted for that and responded to conservative care. She was treated with Humira, hydrocortisone suppositories. She was back in again in February with an obstructing biliary stone and underwent a laparoscopic cholecystectomy and it was left very debilitated and discharged to rehab after that. She on 03/22/2017 was found to be hypotensive, in respiratory distress, with decreased alertness, and was taken to [facility], and from there, was transferred here by [facility] with hypotension, respiratory failure, which required intubation. She is felt to be in septic shock. Imaging showed free air in the peritoneum and also pneumomediastinum. She was taken emergently to the operating room. Dr. Holder, Cardiothoracic Surgery, evaluated her for evidence of breach in airways, but none was found. Dr. Stewart of Surgery found evidence of perforation in the colon and did a total colectomy on her. She had blood cultures done. No cultures were sent from the operating room. Blood cultures remain negative. She remains on pressors. She has not woken up since surgery. She remains on the ventilator. She is on vancomycin, Zosyn, and micafungin was just added. She does move around and thrash when her abdomen is pressed on, but does not make any meaningful movements or seem to respond to speech. PAST MEDICAL HISTORY: Otherwise noncontributory, unremarkable. Extensive records were reviewed from her multiple recent hospitalizations and the very complicated stay she has had since admission. ALLERGIES: SHE HAS NO KNOWN ANTIMICROBIAL ALLERGIES. SOCIAL HISTORY: She was in a long-term care facility for rehab prior to coming in. Nonsmoker. No history of alcohol or substance abuse. FAMILY HISTORY: Noncontributory. PHYSICAL EXAMINATION: GENERAL: An ill-appearing, adult female, lying quietly in bed. There is response to stimulation as previously described in HPI. VITAL SIGNS: Temperature was actually low upon arrival at 91.4 consistent with septic shock, T-max in the last 24 hours was 99.9, 97.7 at present axillary with a pulse of 93, respirations 23, blood pressure 70/53, on pressors. Her weight is 70 kg. HEENT: Sclerae are clear. Swelling in her face and eyelids. Unable to visualize her Consultation Report [address] [place]. [address] NAME: RUPAL CHAN : 57 STATUS : ADM IN [facility]#: [id number] AGE: 62 ADM/REG DATE : 03/22/17 MR#: [id number] REPORT SERV DATE: 03/24/17 DICTATED BY: HALLEY BARRY DATE: 03/24/17 REPORT STATUS : Draft TRANSCRIBED BY: KEARA DATE: 03/24/17 mouth, orotracheally intubated. NECK: Without lymphadenopathy. LUNGS: There are rhonchi heard in the lower lung phillip. HEART: Regular rate and rhythm. ABDOMEN: Distended, just NG noises that were heard. EXTREMITIES: With generalized edema. LABORATORY DATA: Her white blood cell count at presentation was 57.4, yesterday 16.5, today 41.3; hematocrit 27.3; platelets 39; 58 segs; 3% bands on the last differential. BUN and creatinine are 18 and 0.72. Procalcitonin was checked at admission 6.72. IMPRESSION: Septic shock due to abdominal catastrophe. Would expect typical gastrointestinal lenard of strep, anaerobes, gram-negative rods, potentially yeast, Staph less likely, but cannot be ruled out at present. RECOMMENDATIONS: 1. Agree with the present antibiotics, vancomycin, Zosyn, and the addition of micafungin. 2. If the blood cultures remain negative since Staph aureus is less likely, vancomycin could be discontinued perhaps in the next one-two days. Finally, I will follow the patient with you. I appreciate very much your consulting on this patient. HELEN/KEARA Halley Barry M.D. / [id number] CC: Nader Coats IV, M.D.
--- NOTE | ~2017-03-22 | DS ---
Discharge Summary [address] [id number] [place]. [address] NAME: RUPAL CHAN : 57 STATUS : ADM IN [facility]#: [id number] AGE: 62 ADM/REG DATE : 03/22/17 MR#: [id number] REPORT SERV DATE: 03/30/17 DICTATED BY: STEPHANE PADILLA DATE: 03/30/17 REPORT STATUS : Draft TRANSCRIBED BY: MODL DATE: 03/30/17 ADMISSION DATE: 03/22/2017 DISCHARGE DATE: 03/30/2017 DIAGNOSES: 1. Septic shock with multisystem organ failure. 2. Perforated colon. 3. Peritonitis. 4. Pneumomediastinum and pneumoperitoneum. 5. Respiratory failure. 6. Acute kidney injury. 7. DIC. 8. Thrombocytopenia and anemia. 9. Encephalopathy. 10.Metabolic acidosis. CONSULTANTS: Intensive Care Medicine, Cardiothoracic Surgery with Dr. Holder, General Surgery with Dr. Stewart, Nephrology with Dr. Paniagua, Infectious Disease with Dr. Esteves, Vascular Doctor with Dr. Carvalho. HOSPITAL COURSE: The patient was admitted on 03/22/2017 in transfer from [facility] with altered mental status, hypotension, respiratory failure, and free air in the abdomen. The patient actually came from a nursing facility in [facility] [place], operated by [facility] for rehab and was on TPN at that time. When we received her from [facility], the patient arrived intubated on mechanical ventilation. She was also very hypotensive and she was on vasopressors. Cardiovascular was consulted because of pneumomediastinum and they performed a bronchoscopy that showed no evidence of airway injury. General Surgery was consulted because of pneumoperitoneum and she was taken back for an exploratory laparotomy and found to have a colon perforation with fulminant colitis and had underwent a total abdominal colectomy on 03/22/2017. Nephrology also had to be consulted because of acute renal failure and also was put on multiple antimicrobial agents for peritonitis which included micafungin, Zosyn, and vancomycin being followed by Infectious Disease. Blood cultures on this admission were negative and her tracheal aspirate only grew Aspergillus. I do not see any peritoneal specimens. The patient was taken back by Dr. Stewart with General Surgery again on 03/26/2017 for an abdominal washout, ileostomy created and small bowel resection. The patient developed worsening clinical status with more hypotension requiring pressors, anuria with worsening renal failure, and mental status was poor. The patient had a hemodialysis catheter in the right internal jugular vein placed by Dr. Carvalho and the patient was on CRRT, continued ventilatory support and vasopressor support. Family had been notified both the mother, step dad and son, and all were in communication agreement to try to see if we can make her medically improved. Unfortunately, she continued to decline despite maximal medical efforts. The patient family decided that they were going to withdraw care today, 03/30/2017. Family did arrive but no withdrawal of care event was required because the patient went asystole on the monitor and passed at 11:13 a.m. on 03/30/2017. No autopsy planned. Discharge Summary [address] [address] NAME: RUPAL CHAN : 57 STATUS : ADM IN [facility]#: [id number] AGE: 62 ADM/REG DATE : 03/22/17 MR#: [id number] REPORT SERV DATE: 03/30/17 DICTATED BY: STEPHANE PADILLA DATE: 03/30/17 REPORT STATUS : Draft TRANSCRIBED BY: MODL DATE: 03/30/17 CEP/MODL Stephane Padilla DO / [id number] CC: Nader Coats IV, M.D.
--- NOTE | ~2017-03-22 | EEG ---
Electroencephalogram [place] [address] [place]. [address] NAME: RUPAL CHAN : 57 STATUS : ADM IN [facility]#: [id number] AGE: 62 ADM/REG DATE : 03/22/17 MR#: [id number] REPORT SERV DATE: 03/23/17 DICTATED BY: AYDIN ZHU DATE: 03/23/17 REPORT STATUS : Draft TRANSCRIBED BY: KEARA DATE: 03/23/17 EEG NUMBER: [id number] REQUESTING PHYSICIAN: Nader Coats M.D. INTERPRETING PHYSICIAN: Aydin Zhu M.D. LOCATION OF THE PATIENT: MICU bed 11. REASON FOR EEG: Status post cardiopulmonary arrest, encephalopathy, unresponsiveness. 23 surface electrodes, 10-20 international placement was used. The patient was noted to be unresponsive throughout the study. Photic stimulation was performed. Video monitoring was utilized. The patient was on ventilatory support. The background activity consisted of extremely low voltage, very poorly organized. Although, at times rhythmic activity of 4-5 cycles per second. No reactivity to painful, verbal, or photic stimulation was observed. No paroxysmal or epileptiform activity was noted during this study. Continuous depression of cerebral activity with diffuse slowing in the theta range was present. IMPRESSION: MARKEDLY ABNORMAL EEG CHARACTERIZED BY PRESENCE OF DEPRESSION AND DIFFUSE SLOWING OF CEREBRAL ACTIVITY COMPATIBLE WITH SEVERE DIFFUSE CEREBRAL DYSFUNCTION, SEVERE ENCEPHALOPATHY. TOXIC OR METABOLIC CAUSES SHOULD BE CONSIDERED. REVENUE COLLECTOR SHOWS SINUS TACHYCARDIA, HEART RATE OF APPROXIMATELY 120 BEATS PER MINUTE. CLINICAL CORRELATION IS RECOMMENDED. LIDYA/KEARA Aydin Zhu MD / [id number] CC: Nader Coats IV, M.D.
--- NOTE | ~2017-03-22 | OP ---
Record Of Operation [facility] [address] [place]. [address] NAME: RUPAL CHAN : 57 STATUS : ADM IN [facility]#: [id number] AGE: 62 ADM/REG DATE : 03/22/17 MR#: [id number] REPORT SERV DATE: 03/23/17 DICTATED BY: JARED HOLDER JR. DATE: 03/22/17 REPORT STATUS : Draft TRANSCRIBED BY: MODL DATE: 03/22/17 DATE OF PROCEDURE: 03/22/2017 PREOPERATIVE DIAGNOSES: Mediastinal subcutaneous emphysema; free air in abdomen; history of ulcerative colitis, status post recent cholecystectomy; status post cardiopulmonary arrest with right mainstem intubation; sepsis. POSTOPERATIVE DIAGNOSIS: No evidence of airway injury. NAME OF OPERATION: Bronchoscopy. SURGEON: Jared Holder M.D. ANESTHESIA: [facility]. FINDINGS: The patient had some ecchymosis around the right main stem bronchus from the right mainstem intubation. There was no injury to the membranous trachea or right or left mainstem bronchi. There was no evidence of a perforation of the airway. There were some mild mucosal abrasions in the right mainstem, likely from intubation but certainly were superficial at the best. The posterior pharyngeal area did not show any obvious trauma or perforation. The patient was septic and sick on the operating room table, and this was performed emergently. Dr. Lito Stewart is proceeding on with abdominal exploration. DETAILS OF THE PROCEDURE: The patient was seen in the operating room at the request for emergent bronchoscopy to rule out airway injury. The patient was already intubated. The bronchoscope was placed down the existing endotracheal tube and a full inspection was performed. There were no endobronchial lesions. There was mucus secretions in the superior segment of the left lower lobe bronchus which were suctioned and evacuated. Other than the mucous plug, there was no other abnormalities seen other than the ecchymoses around the right main stem bronchus. The endotracheal tube was pulled back into the proximal trachea where again no injury was seen. Inspection of the oropharynx was performed on which I could see no injury. It was felt the next step was to proceed on with exploratory laparotomy. The bronchoscopy was terminated at this point in time. The procedure was turned over to Dr. Lito Stewart. GLORIA/KEARA Jared Holder Jr., M.D. / [id number] CC: Nader Coats IV, M.D.
--- NOTE | ~2017-03-22 | HP ---
History And Physical [place] [id number] [facility] [place]. [address] NAME: RUPAL CHAN : 57 STATUS : [facility]#: [id number] AGE: 62 ADM/REG DATE : 03/22/17 MR#: [id number] REPORT SERV DATE: 03/22/17 DICTATED BY: GIORGI COATS IV DATE: 03/22/17 REPORT STATUS : Draft TRANSCRIBED BY: MODSheela DATE: 03/22/17 DATE OF ADMISSION: 03/22/2017 CRITICAL CARE ADMISSION NOTE ADMITTING DIAGNOSIS: Severe sepsis with shock, free air in the abdomen, acute hypoxemic respiratory failure, encephalopathy, and hyperglycemia. HISTORY OF PRESENT ILLNESS: History was obtained from the group home, the ER physician at [facility] and records. Ms. Chan is a 62-year-old female with history of recently diagnosed ulcerative colitis, hypertension, depression, peptic ulcer disease, and cholelithiasis, status post recent hospitalization for obstructing biliary stone with laparoscopic cholecystectomy, and was transferred from [facility] with altered mental status, hypotension, respiratory failure, free air in the abdomen. The patient was hospitalized here in February and transferred to [facility] for rehabilitation. At the time of transfer, she was on TPN. There was no central line reportedly at the time of presentation to [facility] with the group home stating that the patient was eating and alert. Today, she developed unresponsiveness, had dilated though responsive pupils. Her blood pressure was reportedly 115 systolic. She was sent to [facility], and by the time she arrived in [facility], she was hypotensive, remained unresponsive, and because of instability, they intubated her. They immediately sent for a CT scan that demonstrated a right mainstem intubation with collapse of the left lung with pneumomediastinum and free air in the abdomen. The patient has chronic nausea. There was no report of vomiting or retching. A nasogastric tube was passed without difficulty. The intubation occurred without difficulty. The ER physician did attempt a left IJ central line, which would not thread; however, he successfully placed a subclavian. CT scan demonstrated no obvious pneumothorax, but pneumomediastinum is noted. The patient was unstable with hypotension, for which she received fluid resuscitation and initiation of Levophed and then the addition of epinephrine and transfer. When the patient arrived, she had a thready pulse with the transport people feeling that she was in ventricular tachycardia; however, it was a narrow complex sinus tachycardia that then changed to atrial fibrillation with rapid ventricular response. She maintained pulse though very thready. We adjusted her vasopressor agents with further resuscitation efforts as noted. There was no reports of melena, abdominal pain, hematochezia, hematemesis. The patient had not complained of retrosternal or pleuritic chest pain. The head CT scan there demonstrated no significant pathology with a chest CT scan with results as noted. PULMONARY HISTORY: Remarkable for no history of childhood asthma, known adult obstructive lung disease. She is a nonsmoker by history. There is no occupational exposure to chemicals or solvents. Immunization status is not documented. PAST MEDICAL HISTORY: 1. Ulcerative colitis. 2. Hypertension. 3. Depression. 4. Peptic ulcer disease. 5. Cholelithiasis, status post recent laparoscopic cholecystectomy. History And Physical [address] [address] NAME: RUPAL CHAN : 57 STATUS : [facility]#: [id number] AGE: 62 ADM/REG DATE : 03/22/17 MR#: [id number] REPORT SERV DATE: 03/22/17 DICTATED BY: GIORGI COATS IV DATE: 03/22/17 REPORT STATUS : Draft TRANSCRIBED BY: KEARA DATE: 03/22/17 6. Fatty infiltration of the liver. SURGERIES: 1. Removal of cervical cancer. 2. Laparoscopic cholecystectomy. ALLERGIES: REPORTED ARE COCAINE DRUGS, WHICH CAUSE ALTERED MENTAL STATUS. MEDICATIONS: At the time of transfer include folic acid 1 mg daily, Synthroid 137 mcg daily, hyoscyamine 0.125 sublingual four times a day, multivitamin daily, B12 daily, lactobacillus twice a day, Welchol 625 mg three twice a day, prednisone 40 mg daily on a taper, iron 325 mg daily, Humira which the patient had last received on the , Lomotil p.r.n., and Pepcid 40 mg twice a day. SOCIAL HISTORY: Remarkable for no tobacco, alcohol, or illicit drug use. The patient is single. FAMILY HISTORY: Remarkable for Crohn's disease in a cousin and family members with hypertension. REVIEW OF SYSTEMS: 14-systems reviewed and pertinent positives as noted above. PHYSICAL EXAMINATION: GENERAL: This is a chronically ill-appearing, elderly female, who is not currently responsive though does occasionally spontaneously move her legs and does close her eyes once, seemed to attempt eye movement. VITAL SIGNS: Temperature is pending, pulse is 107, saturations are 100% on mechanical ventilator, respiratory rate is 20, blood pressure is 134/88. HEENT: The patient is normocephalic, atraumatic. Pupils are markedly dilated, however, do respond bilaterally. She did once move her eyes. No drainage from the nasal passage. An orogastric and orotracheal tube in position. NECK: Without any palpable lymphadenopathy or thyromegaly. CHEST: The patient has bilateral coarse rhonchi with a prolonged expiratory phase. There is a subclavian catheter. There is some crepitus in her neck, right more than left. There is puncture site in the left IJ region. CARDIOVASCULAR: The patient is tachycardic, S1, S2 with no clear murmur or S3. It is irregular. Peripheral pulses are diminished. Jugular venous pulsations difficult to elicit. She has currently now 2+ carotid upstrokes. No bruit. ABDOMEN: Protuberant. There are laparoscopic healed incision sites. There are not any bowel sounds. There is no palpable hepatosplenomegaly or masses. PELVIC: The patient has normal female external genitalia. Acosta catheter in place. Rectal is deferred. EXTREMITIES: Demonstrate an interosseous catheter in her left leg. There is bilateral peripheral edema. There is no cyanosis, clubbing, or palpable cords. NEUROLOGIC: The patient currently is unresponsive other than some minimal movement of her legs as noted. She has not received any sedation. History And Physical [address] [address] NAME: RUPAL CHAN : 57 STATUS : [facility]#: [id number] AGE: 62 ADM/REG DATE : 03/22/17 MR#: [id number] REPORT SERV DATE: 03/22/17 DICTATED BY: GIORGI COATS IV DATE: 03/22/17 REPORT STATUS : Draft TRANSCRIBED BY: KEARA DATE: 03/22/17 LABS: Chest x-ray demonstrates some air in the soft tissues around her neck. There is no obvious pneumothorax. Endotracheal tube was pulled back and is in good position. There are bilateral pulmonary infiltrates. On the i-STAT, pH 7.29, pCO2 of 34, PO2 of 206, ionized calcium is 4. CBC: Hemoglobin 11.4, hematocrit 34.5, platelet count was 177,000, white blood cell count 57.4 thousand. The INR is 2.4, PTT is 46.5, procalcitonin level of 6.72. Sodium is 134, potassium 4.8, chloride 103, bicarb 16, BUN 28, creatinine 1.08, glucose of 98, alkaline phosphatase is 211, ammonia is 150, LDH is 576, iron is 37, iron binding capacity is 73, ferritin is 2342, troponin is 0.04, TSH is 0.236, cortisol is 82. Urinalysis: 6 white blood cells, trace leukocyte esterase, and greater than 500 glucose. ASSESSMENT AND PLAN: 1. Respiratory. There is no history of intrinsic lung disease. The patient is quite rhonchorous at this time. Ventilator setting is CMV, tidal volume of 450 cc, rate of 14, 100% FiO2, PEEP of 5. Daily x-ray, blood gas will be obtained in the morning. Albuterol will be given to assist with mucus clearance q.4 hours and q.2 hours as needed. 2. Infectious disease. The patient has sepsis with concern about an abdominal source with free air. She will be given Zosyn and vancomycin adjusted per pharmacy. Lactate will be followed per sepsis protocol. Cultures have been sent to include urine, blood cultures, and tracheal aspirate Gram stain and culture. Procalcitonin level is quite elevated and will be followed. 3. Cardiovascular. The patient was in atrial fibrillation with rapid ventricular response. Amiodarone was given, Levophed and vasopressin and pressors are being used. The patient was given 3 L of fluid resuscitation. Echocardiogram will be ordered for tomorrow. LR 150 mL an hour for maintenance IV. 4. Endocrinologic. Stress dose steroids will be given with recent steroid use at 100 mg three times a day. Synthroid will be given IV. 5. Hematologic. Hemoglobin and hematocrit are both adequate. Fibrinogen will be obtained. FFP will be given prior to surgery 4 units. INR will be obtained in the morning. Typed and crossed 2 units. 6. Gastrointestinal. Concerned about free air in the abdomen, it is difficult to put this altogether with mediastinal air, air in the neck, and in the abdomen. General Surgery has been consulted. They have asked Thoracic Surgery to be available as well. They plan to take the patient to the OR. 7. Renal. Bicarb as needed. I am not putting her on a bicarb drip because of the difficulty with lines. This may be done postoperatively. We will watch urine output, watch creatinine. 8. Neurologic. The patient is encephalopathic although does have reactive pupils. The patient will be given propofol and fentanyl if needed. The head CT scan was unremarkable, this may be metabolic though will be followed. The patient will be admitted to the MICU under the athletic instructor service. The [facility] has been consulted with a plan to take the patient to surgery. CLAUDINE/KEARA History And Physical [address] [address] NAME: RUPAL CHAN : 57 STATUS : [facility]#: [id number] AGE: 62 ADM/REG DATE : 03/22/17 MR#: [id number] REPORT SERV DATE: 03/22/17 DICTATED BY: GIORGI COATS IV DATE: 03/22/17 REPORT STATUS : Draft TRANSCRIBED BY: KEARA DATE: 03/22/17 Giorgi Coats IV, M.D. / [id number] CC: Giorgi Coats IV, M.D.
[2017-03-22 14:53] LABS: CALCIUM, SERUM 7.1 MG/DL (8.5-10.4); CHLORIDE, SERUM 103 MMOL/L (96-112); POTASSIUM, SERUM 4.8 MMOL/L (3.5-5.3); SGOT(AST) 35 U/L (5-40); SGPT(ALT) 18 U/L (5-65); SODIUM, SERUM 134 MMOL/L (135-148); TOTAL PROTEIN 3.7 G/DL (6.0-8.5)
[2017-03-22 14:54] LABS: A/G RATIO 0.3 (0.7-1.9); ALBUMIN 0.9 G/DL (3.5-5.0); ALKALINE PHOSPHATASE 211 U/L (45-117); BUN (BLOOD UREA NITROGEN) 28 MG/DL (6-23); CO2 (CARBON DIOXIDE) 16 MMOL/L (24-34); CREATININE 1.08 MG/DL (0.55-1.02); GFR AFRICAN AMERICAN 64 ML/MIN (>=60); GFR NON AFRICAN AMERICAN 55 ML/MIN (>=60); GLOBULIN 2.8 G/DL (2.5-4.1); GLUCOSE, SERUM 98 MG/DL (60-99); TOTAL BILIRUBIN 0.7 MG/DL (0-1.2)
[2017-03-22 15:19] LABS: INTERNATIONAL NORMAL RATI 2.4 UNITS (-); PARTIAL THROMBO TIME 46.5 SEC (22.5-37.2)
[2017-03-22 15:20] LABS: PROTIME (NOT ORD) 25.7 SEC (12.0-14.5)
[2017-03-22 15:24] LABS: CALCIUM IONIZED 4.05 MG/DL (3.80-4.80)
[2017-03-22 15:47] LABS: DIRECT BILIRUBIN 0.5 MG/DL (0.0-0.4); FERRITIN 2342 NG/ML (8-252); INDIRECT BILIRUBIN(NOT ORDER) 0.2 MG/DL (0.1-0.9); IRON BINDING CAPACITY 73 MCG/DL (225-410); IRON, SERUM 37 MCG/DL (35-150); PHOSPHORUS, SERUM 5.3 MG/DL (2.5-4.5); TROPONIN I 0.04 NG/ML (<0.05)
[2017-03-22 15:48] LABS: PROCALCITONIN 6.72 ng/mL (<0.5)
[2017-03-22 15:55] LABS: MEAN CORPUSCULAR HEMOGLOB 27.7 pg (26.0-34.0); MEAN PLATELET VOLUME 9.7 fL (9.2-13.0); NUCLEATED RED BLOOD CELLS 0.2 /100WBC (0-0); RBC DISTRIBUTION WIDTH 16.9 % (12.0-16.0)
[2017-03-22 15:56] LABS: HEMATOCRIT 34.5 % (36.0-48.0); HEMOGLOBIN 11.4 g/dL (12.0-16.0); MEAN CORPUSCULAR VOLUME 83.9 fL (80-100); PLATELET COUNT 177 10/3/uL (150-400); RED CELL COUNT 4.11 10/6/uL (4.0-5.6); WHITE BLOOD CELLS 57.4 10/3/uL (4.5-10.5)
[2017-03-22 15:59] LABS: MANUAL DIFF YES %
[2017-03-22 16:02] LABS: ASCORBIC ACID (UR NOT ORDER) NEG (NEG); BILIRUBIN, URINE NEGATIVE (NEG); KETONE, URINE NEGATIVE (NEG); WBC (NOT ORDERED) (RFLEX) 6 (0-5)
[2017-03-22 16:03] LABS: LEUKOCYTE ESTERASE(NOT OR TRACE (NEG)
[2017-03-22] MEDS ORDERED: SYNTHROID137 MCG PO (16:07)
[2017-03-22] MEDS ORDERED: CENTRUM PO (16:07)
[2017-03-22] MEDS ORDERED: SYMAX-SL0.125 MG PO (16:07)
[2017-03-22] MEDS ORDERED: FOLIC PO (16:07)
[2017-03-22] MEDS ORDERED: CYANO1000T PO (16:08)
[2017-03-22] MEDS ORDERED: WELCHOL 625 MG625 MG PO (16:08)
[2017-03-22] MEDS ORDERED: ACIDOPHILU2 PO (16:08)
[2017-03-22] MEDS ORDERED: P20 PO (16:11)
[2017-03-22] MEDS ORDERED: FERROUS SULF325 M1 PO (16:12)
[2017-03-22] MEDS ORDERED: CANASA1SUP PR (16:12)
[2017-03-22] MEDS ORDERED: LOM PO ×2 (16:13)
[2017-03-22] MEDS ORDERED: MAALOX PO (16:14)
[2017-03-22] MEDS ORDERED: PEPCID40 MG PO (16:14)
[2017-03-22] MEDS ORDERED: PR25 PO (16:20)
[2017-03-22] MEDS ORDERED: NORCO1 TA2 PO (16:20)
[2017-03-22 16:32] LABS: BAND NEUTROPHILS 66 %; IMMATURE GRANS ABSOLUTE (CALC) 4.59 10/3/uL (0.0-0.11); LYMPHOCYTES 5 %; LYMPHOCYTES ABSOLUTE (CALC) 2.87 10/3/uL (0.67-4.30); METAMYELOCYTES 2 %; MONOCYTES 5 %; MONOCYTES ABSOLUTE (CALC) 2.87 10/3/uL (0.21-1.20); MYELOCYTES 5 %; NEUTROPHILS ABSOLUTE (CALC) 47.07 10/3/uL (2.02-8.40); PLATELET ESTIMATE ADQ (ADEQUATE); PROMYELOCYTES 1 % (0); SEGMENTED NEUTROPHIL (0) 16 %; TOTAL NUCLEATED CELLS 100
[2017-03-22 16:33] LABS: ANISOCYTOSIS 1+ (5-10/OIF) (0-5/OIF); BURR CELLS 1+ (3-10/OIF) (0-2/OIF); HELMET CELLS OCC (0-2/OIF); TEARDROP SHAPED RBCS FEW (3-10/OIF)
[2017-03-22 16:34] LABS: OVALOCYTES 1+ (3-10/OIF) (0-2/OIF)
[2017-03-22 16:38] LABS: FIBRINOGEN 255 MG/DL (230-462)
[2017-03-22 20:32] LABS: CARBOXYHEMOGLOBIN 0.2 % (0-3); HCO3 (ACTUAL BICARBONATE) 16.3 MEQ/L (23-27); HEMOBLOGIN CONTENT 5.6 G/DL (12-16); INSTRUMENT SERIAL # 8083; METHEMOGLOBIN 0.2 % (0-3); O2 CONTENT 8.2 VOL% (18-24); OPERATOR ID 33214; PCO2 (CO2 TENSION) 33 MMHG (35-45); PO2 (O2 TENSION) 249 MMHG (79-93); SAMPLE Arterial; TIDAL VOLUME 450 ML; pH 7.32 (7.37-7.43)
[2017-03-22 20:45] LABS: MEAN CORPUS HGB CONC 33.3 g/dL (32.0-36.0); MEAN CORPUSCULAR HEMOGLOB 27.8 pg (26.0-34.0); MEAN CORPUSCULAR VOLUME 83.5 fL (80-100); MEAN PLATELET VOLUME 9.3 fL (9.2-13.0); NUCLEATED RED BLOOD CELLS 0.3 /100WBC (0-0); RBC DISTRIBUTION WIDTH 16.5 % (12.0-16.0)
[2017-03-22 20:48] LABS: INTERNATIONAL NORMAL RATI 2.1 UNITS (-); PARTIAL THROMBO TIME 46.5 SEC (22.5-37.2); PROTIME (NOT ORD) 23.7 SEC (12.0-14.5)
[2017-03-22 20:55] LABS: RED CELL COUNT 1.94 10/6/uL (4.0-5.6); WHITE BLOOD CELLS 19.6 10/3/uL (4.5-10.5)
[2017-03-22 20:57] LABS: CHLORIDE, SERUM 105 MMOL/L (96-112); CO2 (CARBON DIOXIDE) 18 MMOL/L (24-34); CREATININE 0.89 MG/DL (0.55-1.02); GFR AFRICAN AMERICAN 81 ML/MIN (>=60); GFR NON AFRICAN AMERICAN 70 ML/MIN (>=60)
[2017-03-22 20:58] LABS: HEMATOCRIT 16.2 % (36.0-48.0); HEMOGLOBIN 5.4 g/dL (12.0-16.0); MANUAL DIFF YES %; PLATELET COUNT 107 10/3/uL (150-400)
[2017-03-22 21:01] LABS: BUN (BLOOD UREA NITROGEN) 20 MG/DL (6-23); GLUCOSE, SERUM 302 MG/DL (60-99); POTASSIUM, SERUM 3.4 MMOL/L (3.5-5.3); SODIUM, SERUM 143 MMOL/L (135-148)
[2017-03-22 21:02] LABS: CALCIUM, SERUM 6.9 MG/DL (8.5-10.4); PHOSPHORUS, SERUM 3.8 MG/DL (2.5-4.5); TROPONIN I 0.17 NG/ML (<0.05)
[2017-03-22 21:04] LABS: BAND NEUTROPHILS 40 %; LYMPHOCYTES 12 %; LYMPHOCYTES ABSOLUTE (CALC) 2.35 10/3/uL (0.67-4.30); METAMYELOCYTES 5 %; MONOCYTES 2 %; MONOCYTES ABSOLUTE (CALC) 0.39 10/3/uL (0.21-1.20); MYELOCYTES 19 %; NEUTROPHILS ABSOLUTE (CALC) 12.15 10/3/uL (2.02-8.40); PLATELET ESTIMATE SLT DEC (ADEQUATE); SEGMENTED NEUTROPHIL (0) 22 %; TOTAL NUCLEATED CELLS 100
[2017-03-22 21:05] LABS: ANISOCYTOSIS 1+ (5-10/OIF) (0-5/OIF); POLYCHROMASIA 1+ (2-5/OIF) (0-1/OIF)
[2017-03-22 22:05] LABS: MEAN CORPUS HGB CONC 32.7 g/dL (32.0-36.0); MEAN CORPUSCULAR HEMOGLOB 27.4 pg (26.0-34.0); MEAN CORPUSCULAR VOLUME 83.9 fL (80-100); MEAN PLATELET VOLUME 9.5 fL (9.2-13.0); NUCLEATED RED BLOOD CELLS 0.3 /100WBC (0-0); PLATELET COUNT 108 10/3/uL (150-400); RBC DISTRIBUTION WIDTH 16.5 % (12.0-16.0); RED CELL COUNT 1.86 10/6/uL (4.0-5.6); WHITE BLOOD CELLS 16.5 10/3/uL (4.5-10.5)
[2017-03-22 22:07] LABS: HEMATOCRIT 15.6 % (36.0-48.0); HEMOGLOBIN 5.1 g/dL (12.0-16.0); MANUAL DIFF YES %
[2017-03-22 22:29] LABS: BAND NEUTROPHILS 1 %; EOSINOPHILS 5 %; EOSINOPHILS ABSOLUTE (CALC) 0.83 10/3/uL (0.0-0.53); IMMATURE GRANS ABSOLUTE (CALC) 2.97 10/3/uL (0.0-0.11); LYMPHOCYTES 18 %; LYMPHOCYTES ABSOLUTE (CALC) 2.97 10/3/uL (0.67-4.30); METAMYELOCYTES 18 %; NEUTROPHILS ABSOLUTE (CALC) 9.74 10/3/uL (2.02-8.40); SEGMENTED NEUTROPHIL (0) 58 %; TOTAL NUCLEATED CELLS 100
[2017-03-22 22:30] LABS: ANISOCYTOSIS 1+ (5-10/OIF) (0-5/OIF); PLATELET ESTIMATE SLT DEC (ADEQUATE); POLYCHROMASIA 1+ (2-5/OIF) (0-1/OIF)
[2017-03-23 01:24] LABS: POTASSIUM, SERUM 3.9 MMOL/L (3.5-5.3)
[2017-03-23 03:45] LABS: BE (BASE EXCESS) -13.6 MEQ/L (0 +/- 2.5); CARBOXYHEMOGLOBIN 0.6 % (0-3); HCO3 (ACTUAL BICARBONATE) 14.2 MEQ/L (23-27); HEMOBLOGIN CONTENT 7.9 G/DL (12-16); INSTRUMENT SERIAL # 35151; METHEMOGLOBIN 0.2 % (0-3); MODE CMV; OPERATOR ID 31061; PCO2 (CO2 TENSION) 41 MMHG (35-45); PO2 (O2 TENSION) 138 MMHG (79-93); SAMPLE Arterial; TIDAL VOLUME 450 ML; pH 7.15 (7.37-7.43)
[2017-03-23 04:39] LABS: INTERNATIONAL NORMAL RATI 1.7 UNITS (-)
[2017-03-23 04:46] LABS: PROTIME (NOT ORD) 19.8 SEC (12.0-14.5)
[2017-03-23 04:52] LABS: BUN (BLOOD UREA NITROGEN) 19 MG/DL (6-23); CHLORIDE, SERUM 106 MMOL/L (96-112); GFR AFRICAN AMERICAN 70 ML/MIN (>=60); GFR NON AFRICAN AMERICAN 61 ML/MIN (>=60); PHOSPHORUS, SERUM 3.7 MG/DL (2.5-4.5); SGOT(AST) 121 U/L (5-40); SGPT(ALT) 27 U/L (5-65); SODIUM, SERUM 139 MMOL/L (135-148); TOTAL PROTEIN 3.6 G/DL (6.0-8.5)
[2017-03-23 05:00] LABS: ALBUMIN 1.8 G/DL (3.5-5.0); ALKALINE PHOSPHATASE 119 U/L (45-117); CALCIUM, SERUM 6.6 MG/DL (8.5-10.4); CO2 (CARBON DIOXIDE) 14 MMOL/L (24-34); GLOBULIN 1.8 G/DL (2.5-4.1); GLUCOSE, SERUM 227 MG/DL (60-99); POTASSIUM, SERUM 4.7 MMOL/L (3.5-5.3); TOTAL BILIRUBIN 1.3 MG/DL (0-1.2); TROPONIN I 0.11 NG/ML (<0.05)
[2017-03-23 05:50] LABS: INTERNATIONAL NORMAL RATI 1.7 UNITS (-); PROTIME (NOT ORD) 19.5 SEC (12.0-14.5)
[2017-03-23 05:51] LABS: PARTIAL THROMBO TIME 42.2 SEC (22.5-37.2)
[2017-03-23 06:13] LABS: MEAN CORPUS HGB CONC 33.4 g/dL (32.0-36.0); MEAN CORPUSCULAR HEMOGLOB 28.7 pg (26.0-34.0); MEAN CORPUSCULAR VOLUME 85.9 fL (80-100); MEAN PLATELET VOLUME 10.4 fL (9.2-13.0); NUCLEATED RED BLOOD CELLS 0.9 /100WBC (0-0); PLATELET COUNT 102 10/3/uL (150-400); RBC DISTRIBUTION WIDTH 15.5 % (12.0-16.0); WHITE BLOOD CELLS 20.9 10/3/uL (4.5-10.5)
[2017-03-23 06:14] LABS: HEMATOCRIT 30.5 % (36.0-48.0); HEMOGLOBIN 10.2 g/dL (12.0-16.0); MANUAL DIFF YES %; RED CELL COUNT 3.55 10/6/uL (4.0-5.6)
[2017-03-23 06:25] LABS: BAND NEUTROPHILS 3 %; EOSINOPHILS 1 %; EOSINOPHILS ABSOLUTE (CALC) 0.21 10/3/uL (0.0-0.53); LYMPHOCYTES 14 %; LYMPHOCYTES ABSOLUTE (CALC) 2.93 10/3/uL (0.67-4.30); METAMYELOCYTES 21 %; MONOCYTES 2 %; MONOCYTES ABSOLUTE (CALC) 0.42 10/3/uL (0.21-1.20); MYELOCYTES 1 %; NEUTROPHILS ABSOLUTE (CALC) 12.75 10/3/uL (2.02-8.40); PLATELET ESTIMATE DEC (ADEQUATE); RBC MORPHOLOGY NORM (NORMAL); SEGMENTED NEUTROPHIL (0) 58 %; TOTAL NUCLEATED CELLS 100
[2017-03-23 08:03] LABS: HEMATOCRIT 27.1 % (36.0-48.0); HEMOGLOBIN 9.4 g/dL (12.0-16.0)
[2017-03-23 11:47] LABS: HEMOGLOBIN 10.4 g/dL (12.0-16.0)
[2017-03-23 11:48] LABS: HEMATOCRIT 30.3 % (36.0-48.0)
[2017-03-23 16:23] LABS: HEMATOCRIT 30.7 % (36.0-48.0); HEMOGLOBIN 10.7 g/dL (12.0-16.0)
[2017-03-23 16:44] LABS: ALBUMIN 1.5 G/DL (3.5-5.0); BUN (BLOOD UREA NITROGEN) 17 MG/DL (6-23); CHLORIDE, SERUM 104 MMOL/L (96-112); CREATININE 0.68 MG/DL (0.55-1.02); GFR AFRICAN AMERICAN 109 ML/MIN (>=60); GFR NON AFRICAN AMERICAN 94 ML/MIN (>=60); PHOSPHORUS, SERUM 3.3 MG/DL (2.5-4.5); POTASSIUM, SERUM 3.9 MMOL/L (3.5-5.3); SODIUM, SERUM 142 MMOL/L (135-148)
[2017-03-23 16:46] LABS: CALCIUM, SERUM 6.6 MG/DL (8.5-10.4); CO2 (CARBON DIOXIDE) 24 MMOL/L (24-34); GLUCOSE, SERUM 91 MG/DL (60-99)
[2017-03-23 21:34] LABS: HEMATOCRIT 29.5 % (36.0-48.0); HEMOGLOBIN 10.4 g/dL (12.0-16.0)
[2017-03-24 00:15] LABS: HEMOGLOBIN 9.2 g/dL (12.0-16.0)
[2017-03-24 00:21] LABS: HEMATOCRIT 25.9 % (36.0-48.0)
[2017-03-24 03:27] LABS: HEMATOCRIT 27.3 % (36.0-48.0); HEMOGLOBIN 9.6 g/dL (12.0-16.0)
[2017-03-24 04:06] LABS: BE (BASE EXCESS) -4.1 MEQ/L (0 +/- 2.5); INSTRUMENT SERIAL # 8083; PCO2 (CO2 TENSION) 36 MMHG (35-45); PO2 (O2 TENSION) 66 MMHG (79-93); pH 7.38 (7.37-7.43)
[2017-03-24 04:07] LABS: CARBOXYHEMOGLOBIN 0.2 % (0-3); HCO3 (ACTUAL BICARBONATE) 20.5 MEQ/L (23-27); HEMOBLOGIN CONTENT 9.7 G/DL (12-16); METHEMOGLOBIN 0.3 % (0-3); MODE CMV; O2 CONTENT 12.5 VOL% (18-24); OPERATOR ID 16503; SAMPLE Arterial; TIDAL VOLUME 450 ML
[2017-03-24 05:12] LABS: INTERNATIONAL NORMAL RATI 2.4 UNITS (-)
[2017-03-24 05:24] LABS: PROTIME (NOT ORD) 25.7 SEC (12.0-14.5)
[2017-03-24 05:29] LABS: A/G RATIO 0.6 (0.7-1.9); ALBUMIN 1.2 G/DL (3.5-5.0); BUN (BLOOD UREA NITROGEN) 18 MG/DL (6-23); CHLORIDE, SERUM 99 MMOL/L (96-112); CO2 (CARBON DIOXIDE) 24 MMOL/L (24-34); CREATININE 0.72 MG/DL (0.55-1.02); GFR AFRICAN AMERICAN 105 ML/MIN (>=60); GFR NON AFRICAN AMERICAN 90 ML/MIN (>=60); GLOBULIN 1.9 G/DL (2.5-4.1); PHOSPHORUS, SERUM 3.3 MG/DL (2.5-4.5); POTASSIUM, SERUM 3.9 MMOL/L (3.5-5.3); SGOT(AST) 62 U/L (5-40); SGPT(ALT) 24 U/L (5-65); SODIUM, SERUM 140 MMOL/L (135-148); TOTAL PROTEIN 3.1 G/DL (6.0-8.5)
[2017-03-24 05:32] LABS: ALKALINE PHOSPHATASE 153 U/L (45-117); CALCIUM, SERUM 6.5 MG/DL (8.5-10.4); GLUCOSE, SERUM 71 MG/DL (60-99); TOTAL BILIRUBIN 2.3 MG/DL (0-1.2)
[2017-03-24 05:39] LABS: MEAN CORPUSCULAR HEMOGLOB 29.4 pg (26.0-34.0); MEAN PLATELET VOLUME 10.3 fL (9.2-13.0); RBC DISTRIBUTION WIDTH 16.2 % (12.0-16.0); RED CELL COUNT 3.26 10/6/uL (4.0-5.6)
[2017-03-24 05:43] LABS: MEAN CORPUS HGB CONC 35.4 g/dL (32.0-36.0); MEAN CORPUSCULAR VOLUME 83.1 fL (80-100); PLATELET COUNT 39 10/3/uL (150-400); WHITE BLOOD CELLS 41.3 10/3/uL (4.5-10.5)
[2017-03-24 05:45] LABS: MANUAL DIFF YES %
[2017-03-24 09:55] LABS: BE (BASE EXCESS) -5.9 MEQ/L (0 +/- 2.5); CARBOXYHEMOGLOBIN 0.2 % (0-3); HCO3 (ACTUAL BICARBONATE) 18.1 MEQ/L (23-27); HEMOBLOGIN CONTENT 10.2 G/DL (12-16); INSTRUMENT SERIAL # 8083; METHEMOGLOBIN 0.3 % (0-3); MODE CMV; O2 CONTENT 14.5 VOL% (18-24); OPERATOR ID 35784; PCO2 (CO2 TENSION) 31 MMHG (35-45); PO2 (O2 TENSION) 223 MMHG (79-93); SAMPLE Arterial; pH 7.39 (7.37-7.43)
[2017-03-24 10:01] LABS: HEMATOCRIT 27.9 % (36.0-48.0); HEMOGLOBIN 9.8 g/dL (12.0-16.0)
[2017-03-24 12:55] LABS: BAND NEUTROPHILS 35 %; EOSINOPHILS 1 %; EOSINOPHILS ABSOLUTE (CALC) 0.41 10/3/uL (0.0-0.53); IMMATURE GRANS ABSOLUTE (CALC) 3.72 10/3/uL (0.0-0.11); LYMPHOCYTES 4 %; LYMPHOCYTES ABSOLUTE (CALC) 1.65 10/3/uL (0.67-4.30); METAMYELOCYTES 7 %; MONOCYTES 7 %; MONOCYTES ABSOLUTE (CALC) 2.89 10/3/uL (0.21-1.20); MYELOCYTES 2 %; NEUTROPHILS ABSOLUTE (CALC) 32.63 10/3/uL (2.02-8.40); SEGMENTED NEUTROPHIL (0) 44 %; TOTAL NUCLEATED CELLS 100
[2017-03-24 12:56] LABS: PLATELET ESTIMATE DEC (ADEQUATE); POLYCHROMASIA 1+ (2-5/OIF) (0-1/OIF)
[2017-03-24 13:33] LABS: HEMOGLOBIN 8.7 g/dL (12.0-16.0)
[2017-03-24 13:34] LABS: HEMATOCRIT 24.6 % (36.0-48.0)
[2017-03-24 18:34] LABS: HEMATOCRIT 24.4 % (36.0-48.0); HEMOGLOBIN 8.8 g/dL (12.0-16.0)
[2017-03-24 22:11] LABS: HEMOGLOBIN 7.7 g/dL (12.0-16.0)
[2017-03-25 00:31] LABS: HEMATOCRIT 20.2 % (36.0-48.0)
[2017-03-25 04:04] LABS: BE (BASE EXCESS) -0.5 MEQ/L (0 +/- 2.5); CARBOXYHEMOGLOBIN 0.9 % (0-3); HCO3 (ACTUAL BICARBONATE) 24.3 MEQ/L (23-27); HEMOBLOGIN CONTENT 9.1 G/DL (12-16); INSTRUMENT SERIAL # 8083; METHEMOGLOBIN 0.3 % (0-3); O2 CONTENT 11.5 VOL% (18-24); OPERATOR ID 16503; PCO2 (CO2 TENSION) 40 MMHG (35-45); PO2 (O2 TENSION) 58 MMHG (79-93); SAMPLE Arterial
[2017-03-25 04:05] LABS: MODE CMV; TIDAL VOLUME 450 ML
[2017-03-25 04:44] LABS: FIBRINOGEN 181 MG/DL (230-462); PARTIAL THROMBO TIME 50.5 SEC (22.5-37.2)
[2017-03-25 04:47] LABS: D-DIMER QUANTITATIVE 3.45 ug/mLFEU (< 0.50)
[2017-03-25 04:51] LABS: BUN (BLOOD UREA NITROGEN) 18 MG/DL (6-23); CHLORIDE, SERUM 97 MMOL/L (96-112); CO2 (CARBON DIOXIDE) 22 MMOL/L (24-34); CREATININE 0.78 MG/DL (0.55-1.02); GFR AFRICAN AMERICAN 95 ML/MIN (>=60); GFR NON AFRICAN AMERICAN 82 ML/MIN (>=60); GLUCOSE, SERUM 80 MG/DL (60-99); HEMATOCRIT 25.6 % (36.0-48.0); HEMOGLOBIN 9.1 g/dL (12.0-16.0); PHOSPHORUS, SERUM 3.3 MG/DL (2.5-4.5); POTASSIUM, SERUM 3.9 MMOL/L (3.5-5.3); SGOT(AST) 76 U/L (5-40); SGPT(ALT) 18 U/L (5-65); SODIUM, SERUM 134 MMOL/L (135-148)
[2017-03-25 04:52] LABS: PLATELET COUNT 23 10/3/uL (150-400); PROTIME (NOT ORD) 31.1 SEC (12.0-14.5)
[2017-03-25 05:08] LABS: A/G RATIO 1.9 (0.7-1.9); ALBUMIN 2.7 G/DL (3.5-5.0); ALKALINE PHOSPHATASE 168 U/L (45-117); CALCIUM, SERUM 7.5 MG/DL (8.5-10.4); GLOBULIN 1.4 G/DL (2.5-4.1); TOTAL BILIRUBIN 3.8 MG/DL (0-1.2); TOTAL PROTEIN 4.1 G/DL (6.0-8.5)
[2017-03-25 10:46] LABS: HEMATOCRIT 25.4 % (36.0-48.0)
[2017-03-25 11:08] LABS: MEAN CORPUS HGB CONC 35.4 g/dL (32.0-36.0); MEAN CORPUSCULAR VOLUME 84.7 fL (80-100); NUCLEATED RED BLOOD CELLS 0.8 /100WBC (0-0); PLATELET COUNT 21 10/3/uL (150-400); RBC DISTRIBUTION WIDTH 16.2 % (12.0-16.0); WHITE BLOOD CELLS 26.7 10/3/uL (4.5-10.5)
[2017-03-25 11:09] LABS: MANUAL DIFF YES %
[2017-03-25 12:02] LABS: BAND NEUTROPHILS 33 %; IMMATURE GRANS ABSOLUTE (CALC) 1.07 10/3/uL (0.0-0.11); LYMPHOCYTES 4 %; LYMPHOCYTES ABSOLUTE (CALC) 1.07 10/3/uL (0.67-4.30); METAMYELOCYTES 4 %; MONOCYTES 1 %; MONOCYTES ABSOLUTE (CALC) 0.27 10/3/uL (0.21-1.20); SEGMENTED NEUTROPHIL (0) 58 %; TOTAL NUCLEATED CELLS 100
[2017-03-25 12:03] LABS: POIKILOCYTOSIS 1+ (5-10/OIF) (0-5/OIF); TARGET CELLS FEW (3-10/OIF) (0-1/OIF)
[2017-03-25 12:04] LABS: POLYCHROMASIA 1+ (2-5/OIF) (0-1/OIF)
[2017-03-25 16:47] LABS: HEMOGLOBIN 9.4 g/dL (12.0-16.0)
[2017-03-25 22:11] LABS: HEMATOCRIT 27.2 % (36.0-48.0); HEMOGLOBIN 9.3 g/dL (12.0-16.0)
[2017-03-26 04:20] LABS: A/G RATIO 1.6 (0.7-1.9); ALBUMIN 2.5 G/DL (3.5-5.0); BUN (BLOOD UREA NITROGEN) 19 MG/DL (6-23); CALCIUM, SERUM 7.4 MG/DL (8.5-10.4); CHLORIDE, SERUM 96 MMOL/L (96-112); CO2 (CARBON DIOXIDE) 24 MMOL/L (24-34); CREATININE 0.85 MG/DL (0.55-1.02); GFR AFRICAN AMERICAN 86 ML/MIN (>=60); GFR NON AFRICAN AMERICAN 74 ML/MIN (>=60); GLOBULIN 1.6 G/DL (2.5-4.1); GLUCOSE, SERUM 99 MG/DL (60-99); POTASSIUM, SERUM 3.7 MMOL/L (3.5-5.3); SGOT(AST) 79 U/L (5-40); SGPT(ALT) 24 U/L (5-65); SODIUM, SERUM 134 MMOL/L (135-148); TOTAL PROTEIN 4.1 G/DL (6.0-8.5)
[2017-03-26 04:21] LABS: ALKALINE PHOSPHATASE 188 U/L (45-117); TOTAL BILIRUBIN 5.7 MG/DL (0-1.2)
[2017-03-26 04:28] LABS: HEMATOCRIT 28.4 % (36.0-48.0); HEMOGLOBIN 9.8 g/dL (12.0-16.0); MEAN CORPUS HGB CONC 34.5 g/dL (32.0-36.0); MEAN CORPUSCULAR HEMOGLOB 29.6 pg (26.0-34.0); MEAN CORPUSCULAR VOLUME 85.8 fL (80-100); NUCLEATED RED BLOOD CELLS 1.9 /100WBC (0-0); PLATELET COUNT 17 10/3/uL (150-400); RBC DISTRIBUTION WIDTH 16.8 % (12.0-16.0); RED CELL COUNT 3.31 10/6/uL (4.0-5.6); WHITE BLOOD CELLS 27.3 10/3/uL (4.5-10.5)
[2017-03-26 04:29] LABS: MANUAL DIFF YES %
[2017-03-26 05:08] LABS: ANISOCYTOSIS 1+ (5-10/OIF) (0-5/OIF); BAND NEUTROPHILS 20 %; IMMATURE GRANS ABSOLUTE (CALC) 0.82 10/3/uL (0.0-0.11); LYMPHOCYTES 6 %; LYMPHOCYTES ABSOLUTE (CALC) 1.64 10/3/uL (0.67-4.30); METAMYELOCYTES 2 %; MONOCYTES 1 %; MONOCYTES ABSOLUTE (CALC) 0.27 10/3/uL (0.21-1.20); MYELOCYTES 1 %; NEUTROPHILS ABSOLUTE (CALC) 24.57 10/3/uL (2.02-8.40); SEGMENTED NEUTROPHIL (0) 70 %; TOTAL NUCLEATED CELLS 100
[2017-03-26 05:09] LABS: POLYCHROMASIA 1+ (2-5/OIF) (0-1/OIF)
[2017-03-26 06:31] LABS: FIBRINOGEN 178 MG/DL (230-462); INTERNATIONAL NORMAL RATI 3.2 UNITS (-); PARTIAL THROMBO TIME 51.8 SEC (22.5-37.2); PROTIME (NOT ORD) 32.5 SEC (12.0-14.5)
[2017-03-26 06:34] LABS: D-DIMER QUANTITATIVE 3.41 ug/mLFEU (< 0.50)
[2017-03-26 10:38] LABS: HEMATOCRIT 28.3 % (36.0-48.0); HEMOGLOBIN 9.7 g/dL (12.0-16.0)
[2017-03-26 10:50] LABS: DIRECT BILIRUBIN 4.4 MG/DL (0.0-0.4); GLUCOSE, SERUM 111 MG/DL (60-99); INDIRECT BILIRUBIN(NOT ORDER) 1.1 MG/DL (0.1-0.9); TOTAL BILIRUBIN 5.5 MG/DL (0-1.2); VANCOMYCIN TROUGH 37.2 MCG/ML (10.0-20.0)
[2017-03-26 13:39] LABS: HEMOGLOBIN 8.6 g/dL (12.0-16.0); MEAN CORPUS HGB CONC 34.3 g/dL (32.0-36.0); MEAN CORPUSCULAR HEMOGLOB 29.8 pg (26.0-34.0); MEAN CORPUSCULAR VOLUME 86.9 fL (80-100); MEAN PLATELET VOLUME 10.1 fL (9.2-13.0); NUCLEATED RED BLOOD CELLS 3.1 /100WBC (0-0); RBC DISTRIBUTION WIDTH 16.9 % (12.0-16.0); RED CELL COUNT 2.89 10/6/uL (4.0-5.6); WHITE BLOOD CELLS 19.4 10/3/uL (4.5-10.5)
[2017-03-26 13:40] LABS: HEMATOCRIT 25.1 % (36.0-48.0); MANUAL DIFF YES %; PLATELET COUNT 111 10/3/uL (150-400)
[2017-03-26 13:43] LABS: INTERNATIONAL NORMAL RATI 1.8 UNITS (-); PARTIAL THROMBO TIME 35.7 SEC (22.5-37.2)
[2017-03-26 13:44] LABS: PROTIME (NOT ORD) 20.4 SEC (12.0-14.5)
[2017-03-26 13:51] LABS: BAND NEUTROPHILS 20 %; IMMATURE GRANS ABSOLUTE (CALC) 0.39 10/3/uL (0.0-0.11); LYMPHOCYTES 7 %; LYMPHOCYTES ABSOLUTE (CALC) 1.36 10/3/uL (0.67-4.30); METAMYELOCYTES 1 %; MYELOCYTES 1 %; NEUTROPHILS ABSOLUTE (CALC) 17.65 10/3/uL (2.02-8.40); TOTAL NUCLEATED CELLS 100
[2017-03-26 13:52] LABS: MONOCYTES 1 %; PLATELET ESTIMATE SLT DEC (ADEQUATE); SEGMENTED NEUTROPHIL (0) 70 %
[2017-03-26 13:53] LABS: POLYCHROMASIA 1+ (2-5/OIF) (0-1/OIF)
[2017-03-26 15:39] LABS: BE (BASE EXCESS) -3.1 MEQ/L (0 +/- 2.5); CARBOXYHEMOGLOBIN 0.2 % (0-3); HCO3 (ACTUAL BICARBONATE) 22.7 MEQ/L (23-27); HEMOBLOGIN CONTENT 8.7 G/DL (12-16); INSTRUMENT SERIAL # 11843; METHEMOGLOBIN 0.1 % (0-3); O2 CONTENT 12.3 VOL% (18-24); OPERATOR ID 18642; PCO2 (CO2 TENSION) 44 MMHG (35-45); PO2 (O2 TENSION) 167 MMHG (79-93); SAMPLE Arterial; pH 7.33 (7.37-7.43)
[2017-03-26 19:20] LABS: BE (BASE EXCESS) -3.6 MEQ/L (0 +/- 2.5); CARBOXYHEMOGLOBIN 0.4 % (0-3); HEMOBLOGIN CONTENT 8.7 G/DL (12-16); INSTRUMENT SERIAL # 8083; METHEMOGLOBIN 0.3 % (0-3); MODE CMV; O2 CONTENT 11.7 VOL% (18-24); PCO2 (CO2 TENSION) 42 MMHG (35-45); PO2 (O2 TENSION) 90 MMHG (79-93); SAMPLE Arterial; TIDAL VOLUME 450 ML; pH 7.33 (7.37-7.43)
[2017-03-26 23:39] LABS: HEMATOCRIT 26.2 % (36.0-48.0); HEMOGLOBIN 8.7 g/dL (12.0-16.0)
[2017-03-27 04:02] LABS: HEMATOCRIT 26.3 % (36.0-48.0); HEMOGLOBIN 8.6 g/dL (12.0-16.0); MEAN CORPUS HGB CONC 32.7 g/dL (32.0-36.0); MEAN CORPUSCULAR HEMOGLOB 29.5 pg (26.0-34.0); MEAN PLATELET VOLUME 10.9 fL (9.2-13.0); NUCLEATED RED BLOOD CELLS 4.9 /100WBC (0-0); RBC DISTRIBUTION WIDTH 17.1 % (12.0-16.0); RED CELL COUNT 2.92 10/6/uL (4.0-5.6); WHITE BLOOD CELLS 17.2 10/3/uL (4.5-10.5)
[2017-03-27 04:05] LABS: MANUAL DIFF YES %; MEAN CORPUSCULAR VOLUME 90.1 fL (80-100); PLATELET COUNT 69 10/3/uL (150-400)
[2017-03-27 04:13] LABS: BE (BASE EXCESS) -9.7 MEQ/L (0 +/- 2.5); CARBOXYHEMOGLOBIN 0.8 % (0-3); HCO3 (ACTUAL BICARBONATE) 17.9 MEQ/L (23-27); HEMOBLOGIN CONTENT 8.8 G/DL (12-16); INSTRUMENT SERIAL # 8083; METHEMOGLOBIN 0.3 % (0-3); MODE CMV; O2 CONTENT 11.4 VOL% (18-24); PCO2 (CO2 TENSION) 47 MMHG (35-45); PO2 (O2 TENSION) 78 MMHG (79-93); SAMPLE Arterial; TIDAL VOLUME 450 ML
[2017-03-27 04:14] LABS: ALBUMIN 2.5 G/DL (3.5-5.0); BUN (BLOOD UREA NITROGEN) 20 MG/DL (6-23); CHLORIDE, SERUM 96 MMOL/L (96-112); CREATININE 1.15 MG/DL (0.55-1.02); GFR AFRICAN AMERICAN 59 ML/MIN (>=60); GFR NON AFRICAN AMERICAN 51 ML/MIN (>=60); GLUCOSE, SERUM 131 MG/DL (60-99); PHOSPHORUS, SERUM 4.3 MG/DL (2.5-4.5); POTASSIUM, SERUM 3.9 MMOL/L (3.5-5.3); SGOT(AST) 76 U/L (5-40); SGPT(ALT) 27 U/L (5-65); SODIUM, SERUM 132 MMOL/L (135-148); TOTAL BILIRUBIN 5.9 MG/DL (0-1.2); TOTAL PROTEIN 4.5 G/DL (6.0-8.5)
[2017-03-27 04:16] LABS: A/G RATIO 1.3 (0.7-1.9); ALKALINE PHOSPHATASE 155 U/L (45-117); CO2 (CARBON DIOXIDE) 19 MMOL/L (24-34)
[2017-03-27 04:17] LABS: CALCIUM, SERUM 7.4 MG/DL (8.5-10.4); TRIGLYCERIDE 368 MG/DL (< 150)
[2017-03-27 04:23] LABS: BAND NEUTROPHILS 19 %; IMMATURE GRANS ABSOLUTE (CALC) 0.69 10/3/uL (0.0-0.11); LYMPHOCYTES 10 %; LYMPHOCYTES ABSOLUTE (CALC) 2.58 10/3/uL (0.67-4.30); METAMYELOCYTES 2 %; MONOCYTES 1 %; MONOCYTES ABSOLUTE (CALC) 0.86 10/3/uL (0.21-1.20); MYELOCYTES 2 %; NEUTROPHILS ABSOLUTE (CALC) 13.07 10/3/uL (2.02-8.40); PLATELET ESTIMATE DEC (ADEQUATE); RBC MORPHOLOGY NORM (NORMAL); SEGMENTED NEUTROPHIL (0) 66 %; TOTAL NUCLEATED CELLS 100
[2017-03-27 10:05] LABS: HEMATOCRIT 24.3 % (36.0-48.0); HEMOGLOBIN 7.9 g/dL (12.0-16.0); MEAN CORPUS HGB CONC 32.5 g/dL (32.0-36.0); MEAN CORPUSCULAR HEMOGLOB 29.3 pg (26.0-34.0); MEAN PLATELET VOLUME 10.6 fL (9.2-13.0); NUCLEATED RED BLOOD CELLS 5.1 /100WBC (0-0); RBC DISTRIBUTION WIDTH 17.2 % (12.0-16.0); WHITE BLOOD CELLS 14.7 10/3/uL (4.5-10.5)
[2017-03-27 10:08] LABS: PLATELET COUNT 29 10/3/uL (150-400)
[2017-03-27 10:09] LABS: MANUAL DIFF YES %
[2017-03-27 10:37] LABS: BAND NEUTROPHILS 21 %; EOSINOPHILS 1 %; EOSINOPHILS ABSOLUTE (CALC) 0.15 10/3/uL (0.0-0.53); IMMATURE GRANS ABSOLUTE (CALC) 1.91 10/3/uL (0.0-0.11); LYMPHOCYTES 9 %; LYMPHOCYTES ABSOLUTE (CALC) 1.32 10/3/uL (0.67-4.30); METAMYELOCYTES 10 %; MONOCYTES 2 %; MONOCYTES ABSOLUTE (CALC) 0.29 10/3/uL (0.21-1.20); MYELOCYTES 3 %; NEUTROPHILS ABSOLUTE (CALC) 11.03 10/3/uL (2.02-8.40); SEGMENTED NEUTROPHIL (0) 54 %; TOTAL NUCLEATED CELLS 100
[2017-03-27 10:38] LABS: ANISOCYTOSIS 1+ (5-10/OIF) (0-5/OIF); MACROCYTES 1+ (5-10/OIF) (0-5/OIF); POLYCHROMASIA 1+ (2-5/OIF) (0-1/OIF)
[2017-03-27 10:39] LABS: TOXIC GRANULATION 1+; VACUOLATED NEUTROPHILES 1+
[2017-03-27 10:42] LABS: PROTIME (NOT ORD) 38.5 SEC (12.0-14.5)
[2017-03-27 10:45] LABS: GLUCOSE, SERUM 109 MG/DL (60-99); TROPONIN I 0.04 NG/ML (<0.05)
[2017-03-27 10:46] LABS: CPK 292 U/L (0-200)
[2017-03-27 11:06] LABS: FIBRINOGEN 145 MG/DL (230-462)
[2017-03-27 11:13] LABS: PARTIAL THROMBO TIME > 150.0 SEC (22.5-37.2)
[2017-03-27 12:31] LABS: A/G RATIO 1.5 (0.7-1.9); ALBUMIN 2.5 G/DL (3.5-5.0); ALKALINE PHOSPHATASE 151 U/L (45-117); BUN (BLOOD UREA NITROGEN) 21 MG/DL (6-23); CALCIUM, SERUM 7.2 MG/DL (8.5-10.4); CHLORIDE, SERUM 96 MMOL/L (96-112); CO2 (CARBON DIOXIDE) 20 MMOL/L (24-34); CREATININE 1.07 MG/DL (0.55-1.02); GFR AFRICAN AMERICAN 65 ML/MIN (>=60); GFR NON AFRICAN AMERICAN 56 ML/MIN (>=60); GLOBULIN 1.7 G/DL (2.5-4.1); PHOSPHORUS, SERUM 4.4 MG/DL (2.5-4.5); POTASSIUM, SERUM 4.1 MMOL/L (3.5-5.3); SGOT(AST) 71 U/L (5-40); SGPT(ALT) 28 U/L (5-65); SODIUM, SERUM 133 MMOL/L (135-148); TOTAL PROTEIN 4.2 G/DL (6.0-8.5)
[2017-03-27 12:39] LABS: BE (BASE EXCESS) -6.7 MEQ/L (0 +/- 2.5); HCO3 (ACTUAL BICARBONATE) 19.4 MEQ/L (23-27); INSTRUMENT SERIAL # 8083; PCO2 (CO2 TENSION) 42 MMHG (35-45); PO2 (O2 TENSION) 134 MMHG (79-93); pH 7.29 (7.37-7.43)
[2017-03-27 12:40] LABS: CARBOXYHEMOGLOBIN 0.2 % (0-3); METHEMOGLOBIN 0.3 % (0-3); MODE CMV; O2 CONTENT 11.2 VOL% (18-24); OPERATOR ID 35188; SAMPLE Arterial; TIDAL VOLUME 450 ML
[2017-03-27 14:00] LABS: HEPARIN-INDUCED PLATELET AB NEGATIVE (NEGATIVE); HIT PATIENT O.D. 0.022 OD (0.000-0.299)
[2017-03-27 15:55] LABS: MEAN CORPUS HGB CONC 33.5 g/dL (32.0-36.0); MEAN CORPUSCULAR HEMOGLOB 29.9 pg (26.0-34.0); MEAN CORPUSCULAR VOLUME 89.2 fL (80-100); MEAN PLATELET VOLUME 10.3 fL (9.2-13.0); NUCLEATED RED BLOOD CELLS 4.2 /100WBC (0-0); RBC DISTRIBUTION WIDTH 17.3 % (12.0-16.0); RED CELL COUNT 2.31 10/6/uL (4.0-5.6); WHITE BLOOD CELLS 12.9 10/3/uL (4.5-10.5)
[2017-03-27 15:58] LABS: HEMATOCRIT 20.6 % (36.0-48.0); HEMOGLOBIN 6.9 g/dL (12.0-16.0)
[2017-03-27 15:59] LABS: PLATELET COUNT 36 10/3/uL (150-400)
[2017-03-27 16:00] LABS: MANUAL DIFF YES %
[2017-03-27 16:04] LABS: INTERNATIONAL NORMAL RATI 1.8 UNITS (-); PARTIAL THROMBO TIME 38.8 SEC (22.5-37.2)
[2017-03-27 16:08] LABS: CALCIUM, SERUM 7.5 MG/DL (8.5-10.4); CHLORIDE, SERUM 98 MMOL/L (96-112); CO2 (CARBON DIOXIDE) 23 MMOL/L (24-34); CPK 339 U/L (0-200); CREATININE 0.92 MG/DL (0.55-1.02); D-DIMER QUANTITATIVE 2.49 ug/mLFEU (< 0.50); GFR AFRICAN AMERICAN 78 ML/MIN (>=60); GFR NON AFRICAN AMERICAN 67 ML/MIN (>=60); POTASSIUM, SERUM 3.7 MMOL/L (3.5-5.3); PROTIME (NOT ORD) 21.1 SEC (12.0-14.5); SODIUM, SERUM 135 MMOL/L (135-148)
[2017-03-27 16:10] LABS: BUN (BLOOD UREA NITROGEN) 16 MG/DL (6-23); GLUCOSE, SERUM 174 MG/DL (60-99); PHOSPHORUS, SERUM 2.5 MG/DL (2.5-4.5)
[2017-03-27 16:12] LABS: TROPONIN I 0.08 NG/ML (<0.05)
[2017-03-27 16:15] LABS: ANISOCYTOSIS 1+ (5-10/OIF) (0-5/OIF); BAND NEUTROPHILS 38 %; IMMATURE GRANS ABSOLUTE (CALC) 1.16 10/3/uL (0.0-0.11); LYMPHOCYTES 10 %; LYMPHOCYTES ABSOLUTE (CALC) 1.29 10/3/uL (0.67-4.30); METAMYELOCYTES 7 %; MYELOCYTES 2 %; NEUTROPHILS ABSOLUTE (CALC) 10.45 10/3/uL (2.02-8.40); SEGMENTED NEUTROPHIL (0) 43 %; TOTAL NUCLEATED CELLS 100; TOXIC GRANULATION 2+
[2017-03-27 16:16] LABS: HYPOCHROMIA 1+ (3-10/OIF) (0-2/OIF); MACROCYTES 1+ (5-10/OIF) (0-5/OIF); VACUOLATED NEUTROPHILES OCC
[2017-03-27 16:48] LABS: INTERNATIONAL NORMAL RATI 1.8 UNITS (-); PARTIAL THROMBO TIME 39.9 SEC (22.5-37.2); PROTIME (NOT ORD) 21.1 SEC (12.0-14.5)
[2017-03-27 22:07] LABS: HEMOGLOBIN 8.7 g/dL (12.0-16.0); MEAN CORPUS HGB CONC 33.5 g/dL (32.0-36.0); MEAN CORPUSCULAR HEMOGLOB 29.6 pg (26.0-34.0); MEAN CORPUSCULAR VOLUME 88.4 fL (80-100); MEAN PLATELET VOLUME 10.3 fL (9.2-13.0); NUCLEATED RED BLOOD CELLS 6.6 /100WBC (0-0); PLATELET COUNT 29 10/3/uL (150-400); RBC DISTRIBUTION WIDTH 16.3 % (12.0-16.0); RED CELL COUNT 2.94 10/6/uL (4.0-5.6); WHITE BLOOD CELLS 13.3 10/3/uL (4.5-10.5)
[2017-03-27 22:08] LABS: MANUAL DIFF YES %
[2017-03-27 22:22] LABS: BUN (BLOOD UREA NITROGEN) 12 MG/DL (6-23); CALCIUM, SERUM 7.6 MG/DL (8.5-10.4); CHLORIDE, SERUM 100 MMOL/L (96-112); CO2 (CARBON DIOXIDE) 23 MMOL/L (24-34); CPK 433 U/L (0-200); CREATININE 0.73 MG/DL (0.55-1.02); GFR AFRICAN AMERICAN 103 ML/MIN (>=60); GFR NON AFRICAN AMERICAN 89 ML/MIN (>=60); GLUCOSE, SERUM 151 MG/DL (60-99); POTASSIUM, SERUM 3.7 MMOL/L (3.5-5.3); SODIUM, SERUM 137 MMOL/L (135-148); TROPONIN I 0.08 NG/ML (<0.05)
[2017-03-27 22:36] LABS: ANISOCYTOSIS 1+ (5-10/OIF) (0-5/OIF); BAND NEUTROPHILS 36 %; IMMATURE GRANS ABSOLUTE (CALC) 0.93 10/3/uL (0.0-0.11); LYMPHOCYTES 4 %; LYMPHOCYTES ABSOLUTE (CALC) 0.53 10/3/uL (0.67-4.30); METAMYELOCYTES 6 %; MONOCYTES 1 %; MONOCYTES ABSOLUTE (CALC) 0.13 10/3/uL (0.21-1.20); MYELOCYTES 1 %; SEGMENTED NEUTROPHIL (0) 52 %; TOTAL NUCLEATED CELLS 100; TOXIC GRANULATION 1+
[2017-03-27 22:38] LABS: POLYCHROMASIA 1+ (2-5/OIF) (0-1/OIF)
[2017-03-28 03:18] LABS: ALLENS TEST Pos; BE (BASE EXCESS) -4.8 MEQ/L (0 +/- 2.5); CARBOXYHEMOGLOBIN 0.2 % (0-3); HCO3 (ACTUAL BICARBONATE) 21.2 MEQ/L (23-27); HEMOBLOGIN CONTENT 9.1 G/DL (12-16); INSTRUMENT SERIAL # 8083; METHEMOGLOBIN 0.3 % (0-3); MODE CMV; O2 CONTENT 12.9 VOL% (18-24); OPERATOR ID 31061; PCO2 (CO2 TENSION) 44 MMHG (35-45); PO2 (O2 TENSION) 166 MMHG (79-93); SAMPLE Arterial; TIDAL VOLUME 450 ML; pH 7.31 (7.37-7.43)
[2017-03-28 04:17] LABS: HEMATOCRIT 26.8 % (36.0-48.0); HEMOGLOBIN 8.9 g/dL (12.0-16.0); MEAN CORPUS HGB CONC 33.2 g/dL (32.0-36.0); MEAN CORPUSCULAR HEMOGLOB 29.3 pg (26.0-34.0); MEAN CORPUSCULAR VOLUME 88.2 fL (80-100); NUCLEATED RED BLOOD CELLS 6.8 /100WBC (0-0); RBC DISTRIBUTION WIDTH 16.6 % (12.0-16.0); RED CELL COUNT 3.04 10/6/uL (4.0-5.6); WHITE BLOOD CELLS 14.9 10/3/uL (4.5-10.5)
[2017-03-28 04:18] LABS: MANUAL DIFF YES %; PLATELET COUNT 24 10/3/uL (150-400)
[2017-03-28 04:37] LABS: A/G RATIO 0.9 (0.7-1.9); ALBUMIN 2.2 G/DL (3.5-5.0); ALKALINE PHOSPHATASE 155 U/L (45-117); BUN (BLOOD UREA NITROGEN) 10 MG/DL (6-23); CALCIUM, SERUM 7.8 MG/DL (8.5-10.4); CHLORIDE, SERUM 101 MMOL/L (96-112); CO2 (CARBON DIOXIDE) 22 MMOL/L (24-34); GFR AFRICAN AMERICAN 114 ML/MIN (>=60); GFR NON AFRICAN AMERICAN 98 ML/MIN (>=60); GLOBULIN 2.5 G/DL (2.5-4.1); GLUCOSE, SERUM 149 MG/DL (60-99); PHOSPHORUS, SERUM 1.4 MG/DL (2.5-4.5); POTASSIUM, SERUM 3.8 MMOL/L (3.5-5.3); PREALBUMIN 6.6 MG/DL (17.0-43.0); SGOT(AST) 84 U/L (5-40); SGPT(ALT) 29 U/L (5-65); SODIUM, SERUM 138 MMOL/L (135-148); TOTAL BILIRUBIN 6.9 MG/DL (0-1.2); TOTAL PROTEIN 4.7 G/DL (6.0-8.5); TRIGLYCERIDE 347 MG/DL (< 150)
[2017-03-28 06:09] LABS: ANISOCYTOSIS 1+ (5-10/OIF) (0-5/OIF); BAND NEUTROPHILS 30 %; IMMATURE GRANS ABSOLUTE (CALC) 1.34 10/3/uL (0.0-0.11); LYMPHOCYTES 2 %; METAMYELOCYTES 7 %; MONOCYTES 5 %; MONOCYTES ABSOLUTE (CALC) 0.75 10/3/uL (0.21-1.20); MYELOCYTES 2 %; NEUTROPHILS ABSOLUTE (CALC) 12.52 10/3/uL (2.02-8.40); SEGMENTED NEUTROPHIL (0) 54 %; TOTAL NUCLEATED CELLS 100; TOXIC GRANULATION SLT; VACUOLATED NEUTROPHILES FEW
[2017-03-28 09:57] LABS: HEMATOCRIT 26.2 % (36.0-48.0); HEMOGLOBIN 8.9 g/dL (12.0-16.0); MEAN CORPUSCULAR HEMOGLOB 29.5 pg (26.0-34.0); MEAN CORPUSCULAR VOLUME 86.8 fL (80-100); MEAN PLATELET VOLUME 9.7 fL (9.2-13.0); NUCLEATED RED BLOOD CELLS 7.7 /100WBC (0-0); RBC DISTRIBUTION WIDTH 17.1 % (12.0-16.0); RED CELL COUNT 3.02 10/6/uL (4.0-5.6); WHITE BLOOD CELLS 17.6 10/3/uL (4.5-10.5)
[2017-03-28 09:58] LABS: MANUAL DIFF YES %; PLATELET COUNT 18 10/3/uL (150-400)
[2017-03-28 10:03] LABS: INTERNATIONAL NORMAL RATI 1.9 UNITS (-); PARTIAL THROMBO TIME 37.5 SEC (22.5-37.2); PROTIME (NOT ORD) 21.5 SEC (12.0-14.5)
[2017-03-28 10:09] LABS: ALBUMIN 2.1 G/DL (3.5-5.0); ALKALINE PHOSPHATASE 164 U/L (45-117); BUN (BLOOD UREA NITROGEN) 8 MG/DL (6-23); CALCIUM, SERUM 7.9 MG/DL (8.5-10.4); CHLORIDE, SERUM 101 MMOL/L (96-112); CO2 (CARBON DIOXIDE) 24 MMOL/L (24-34); CREATININE 0.51 MG/DL (0.55-1.02); GFR AFRICAN AMERICAN 120 ML/MIN (>=60); GFR NON AFRICAN AMERICAN 104 ML/MIN (>=60); GLUCOSE, SERUM 157 MG/DL (60-99); SGOT(AST) 82 U/L (5-40); SGPT(ALT) 33 U/L (5-65); SODIUM, SERUM 141 MMOL/L (135-148); TOTAL PROTEIN 4.6 G/DL (6.0-8.5)
[2017-03-28 10:10] LABS: DIRECT BILIRUBIN 5.7 MG/DL (0.0-0.4); INDIRECT BILIRUBIN(NOT ORDER) 1.7 MG/DL (0.1-0.9); TOTAL BILIRUBIN 7.4 MG/DL (0-1.2)
[2017-03-28 10:16] LABS: BAND NEUTROPHILS 28 %; IMMATURE GRANS ABSOLUTE (CALC) 2.11 10/3/uL (0.0-0.11); LYMPHOCYTES 13 %; LYMPHOCYTES ABSOLUTE (CALC) 2.29 10/3/uL (0.67-4.30); METAMYELOCYTES 7 %; MONOCYTES 4 %; MYELOCYTES 5 %; PLATELET ESTIMATE DEC (ADEQUATE); SEGMENTED NEUTROPHIL (0) 43 %; TOTAL NUCLEATED CELLS 100
[2017-03-28 10:17] LABS: ANISOCYTOSIS 1+ (5-10/OIF) (0-5/OIF); POLYCHROMASIA 1+ (2-5/OIF) (0-1/OIF)
[2017-03-28 10:18] LABS: BASOPHILIC STIPPLING 1+ (2-5/OIF) (0-1/OIF); TARGET CELLS FEW (3-10/OIF) (0-1/OIF)
[2017-03-28 10:19] LABS: BURR CELLS 1+ (3-10/OIF) (0-2/OIF); TEARDROP SHAPED RBCS OCC (0-2/OIF)
[2017-03-28 10:20] LABS: SCHISTOCYTES OCC (0-2/OIF)
[2017-03-28 16:32] LABS: HEMATOCRIT 27.7 % (36.0-48.0); HEMOGLOBIN 9.2 g/dL (12.0-16.0); MEAN CORPUS HGB CONC 33.2 g/dL (32.0-36.0); MEAN CORPUSCULAR HEMOGLOB 29.1 pg (26.0-34.0); MEAN CORPUSCULAR VOLUME 87.7 fL (80-100); NUCLEATED RED BLOOD CELLS 9.7 /100WBC (0-0); RBC DISTRIBUTION WIDTH 17.2 % (12.0-16.0); RED CELL COUNT 3.16 10/6/uL (4.0-5.6); WHITE BLOOD CELLS 19.6 10/3/uL (4.5-10.5)
[2017-03-28 16:33] LABS: PLATELET COUNT 15 10/3/uL (150-400)
[2017-03-28 16:34] LABS: MANUAL DIFF YES %
[2017-03-28 16:41] LABS: BUN (BLOOD UREA NITROGEN) 7 MG/DL (6-23); CALCIUM, SERUM 8.2 MG/DL (8.5-10.4); CHLORIDE, SERUM 101 MMOL/L (96-112); CO2 (CARBON DIOXIDE) 26 MMOL/L (24-34); GFR AFRICAN AMERICAN 121 ML/MIN (>=60); GFR NON AFRICAN AMERICAN 104 ML/MIN (>=60); GLUCOSE, SERUM 150 MG/DL (60-99); POTASSIUM, SERUM 3.8 MMOL/L (3.5-5.3); SODIUM, SERUM 139 MMOL/L (135-148)
[2017-03-28 16:46] LABS: PHOSPHORUS, SERUM 2.7 MG/DL (2.5-4.5)
[2017-03-28 17:05] LABS: BAND NEUTROPHILS 34 %; IMMATURE GRANS ABSOLUTE (CALC) 2.16 10/3/uL (0.0-0.11); LYMPHOCYTES 9 %; LYMPHOCYTES ABSOLUTE (CALC) 1.76 10/3/uL (0.67-4.30); METAMYELOCYTES 7 %; MYELOCYTES 4 %; NEUTROPHILS ABSOLUTE (CALC) 15.68 10/3/uL (2.02-8.40); SEGMENTED NEUTROPHIL (0) 46 %; TOTAL NUCLEATED CELLS 100
[2017-03-28 17:06] LABS: BURR CELLS 1+ (3-10/OIF) (0-2/OIF)
[2017-03-28 17:10] LABS: TARGET CELLS FEW (3-10/OIF) (0-1/OIF)
[2017-03-28 17:11] LABS: RBC MORPHOLOGY ABN (NORMAL); SCHISTOCYTES OCC (0-2/OIF)
[2017-03-28 22:19] LABS: BUN (BLOOD UREA NITROGEN) 7 MG/DL (6-23); CALCIUM, SERUM 7.9 MG/DL (8.5-10.4); CHLORIDE, SERUM 102 MMOL/L (96-112); CO2 (CARBON DIOXIDE) 26 MMOL/L (24-34); CREATININE 0.59 MG/DL (0.55-1.02); GFR AFRICAN AMERICAN 115 ML/MIN (>=60); GFR NON AFRICAN AMERICAN 99 ML/MIN (>=60); GLUCOSE, SERUM 154 MG/DL (60-99); POTASSIUM, SERUM 3.9 MMOL/L (3.5-5.3); SODIUM, SERUM 140 MMOL/L (135-148)
[2017-03-28 22:22] LABS: HEMATOCRIT 25.1 % (36.0-48.0); HEMOGLOBIN 8.4 g/dL (12.0-16.0); MEAN CORPUS HGB CONC 33.5 g/dL (32.0-36.0); MEAN CORPUSCULAR HEMOGLOB 29.4 pg (26.0-34.0); MEAN CORPUSCULAR VOLUME 87.8 fL (80-100); MEAN PLATELET VOLUME 9.9 fL (9.2-13.0); RBC DISTRIBUTION WIDTH 17.4 % (12.0-16.0); RED CELL COUNT 2.86 10/6/uL (4.0-5.6); WHITE BLOOD CELLS 20.5 10/3/uL (4.5-10.5)
[2017-03-28 22:27] LABS: MANUAL DIFF YES %; PLATELET COUNT 86 10/3/uL (150-400)
[2017-03-28 22:53] LABS: BAND NEUTROPHILS 40 %; IMMATURE GRANS ABSOLUTE (CALC) 2.26 10/3/uL (0.0-0.11); LYMPHOCYTES 12 %; LYMPHOCYTES ABSOLUTE (CALC) 2.46 10/3/uL (0.67-4.30); METAMYELOCYTES 5 %; MONOCYTES 2 %; MONOCYTES ABSOLUTE (CALC) 0.41 10/3/uL (0.21-1.20); MYELOCYTES 6 %; NEUTROPHILS ABSOLUTE (CALC) 15.38 10/3/uL (2.02-8.40); SEGMENTED NEUTROPHIL (0) 35 %; TOTAL NUCLEATED CELLS 100
[2017-03-28 22:54] LABS: ANISOCYTOSIS 1+ (5-10/OIF) (0-5/OIF); PLATELET ESTIMATE DEC (ADEQUATE)
[2017-03-28 22:55] LABS: POLYCHROMASIA 1+ (2-5/OIF) (0-1/OIF)
[2017-03-29 03:53] LABS: BE (BASE EXCESS) -4.2 MEQ/L (0 +/- 2.5); CARBOXYHEMOGLOBIN 1.3 % (0-3); HCO3 (ACTUAL BICARBONATE) 22.2 MEQ/L (23-27); HEMOBLOGIN CONTENT 9.3 G/DL (12-16); INSTRUMENT SERIAL # 8083; METHEMOGLOBIN 0.3 % (0-3); MODE CMV; O2 CONTENT 11.8 VOL% (18-24); OPERATOR ID 23712; PCO2 (CO2 TENSION) 46 MMHG (35-45); PO2 (O2 TENSION) 66 MMHG (79-93); SAMPLE Arterial; TIDAL VOLUME 450 ML
[2017-03-29 04:34] LABS: HEMATOCRIT 26.6 % (36.0-48.0); MEAN CORPUS HGB CONC 33.8 g/dL (32.0-36.0); MEAN CORPUSCULAR HEMOGLOB 29.7 pg (26.0-34.0); MEAN CORPUSCULAR VOLUME 87.8 fL (80-100); MEAN PLATELET VOLUME 9.9 fL (9.2-13.0); NUCLEATED RED BLOOD CELLS 9.2 /100WBC (0-0); RBC DISTRIBUTION WIDTH 17.4 % (12.0-16.0); RED CELL COUNT 3.03 10/6/uL (4.0-5.6); WHITE BLOOD CELLS 21.6 10/3/uL (4.5-10.5)
[2017-03-29 04:35] LABS: PLATELET COUNT 55 10/3/uL (150-400)
[2017-03-29 04:37] LABS: MANUAL DIFF YES %
[2017-03-29 04:46] LABS: BUN (BLOOD UREA NITROGEN) 6 MG/DL (6-23); CALCIUM, SERUM 8.1 MG/DL (8.5-10.4); CHLORIDE, SERUM 101 MMOL/L (96-112); CO2 (CARBON DIOXIDE) 26 MMOL/L (24-34); CREATININE 0.46 MG/DL (0.55-1.02); GFR AFRICAN AMERICAN 124 ML/MIN (>=60); GFR NON AFRICAN AMERICAN 107 ML/MIN (>=60); GLUCOSE, SERUM 162 MG/DL (60-99); SODIUM, SERUM 138 MMOL/L (135-148)
[2017-03-29 04:50] LABS: PHOSPHORUS, SERUM 1.8 MG/DL (2.5-4.5)
[2017-03-29 05:49] LABS: ANISOCYTOSIS 1+ (5-10/OIF) (0-5/OIF); BAND NEUTROPHILS 60 %; GIANT PLATELET OCC; IMMATURE GRANS ABSOLUTE (CALC) 1.73 10/3/uL (0.0-0.11); LYMPHOCYTES 2 %; LYMPHOCYTES ABSOLUTE (CALC) 0.43 10/3/uL (0.67-4.30); METAMYELOCYTES 6 %; MYELOCYTES 2 %; NEUTROPHILS ABSOLUTE (CALC) 19.44 10/3/uL (2.02-8.40); PLATELET ESTIMATE DEC (ADEQUATE); POLYCHROMASIA 1+ (2-5/OIF) (0-1/OIF); SEGMENTED NEUTROPHIL (0) 30 %; TOTAL NUCLEATED CELLS 100
[2017-03-29 05:50] LABS: MACROCYTES 1+ (5-10/OIF) (0-5/OIF); MICROCYTES 1+ (5-10/OIF) (0-5/OIF); TOXIC GRANULATION SLT
[2017-03-29 06:23] LABS: INSTRUMENT SERIAL # 8083; PCO2 (CO2 TENSION) 49 MMHG (35-45); pH 7.29 (7.37-7.43)
[2017-03-29 06:24] LABS: BE (BASE EXCESS) -3.6 MEQ/L (0 +/- 2.5); CARBOXYHEMOGLOBIN 0.8 % (0-3); HCO3 (ACTUAL BICARBONATE) 22.8 MEQ/L (23-27); HEMOBLOGIN CONTENT 8.8 G/DL (12-16); METHEMOGLOBIN 0.3 % (0-3); MODE PCV; O2 CONTENT 12.6 VOL% (18-24); OPERATOR ID 31061; PO2 (O2 TENSION) 212 MMHG (79-93); SAMPLE Arterial
[2017-03-29 10:04] LABS: BE (BASE EXCESS) -9.7 MEQ/L (0 +/- 2.5); CARBOXYHEMOGLOBIN 1.1 % (0-3); HCO3 (ACTUAL BICARBONATE) 19.1 MEQ/L (23-27); HEMOBLOGIN CONTENT 8.4 G/DL (12-16); INSTRUMENT SERIAL # 8083; METHEMOGLOBIN 0.2 % (0-3); MODE PCV; OPERATOR ID 35188; PCO2 (CO2 TENSION) 58 MMHG (35-45); PO2 (O2 TENSION) 83 MMHG (79-93); SAMPLE Arterial; pH 7.14 (7.37-7.43)
[2017-03-29 10:14] LABS: HEMATOCRIT 24.8 % (36.0-48.0); HEMOGLOBIN 8.3 g/dL (12.0-16.0); MEAN CORPUS HGB CONC 33.5 g/dL (32.0-36.0); MEAN CORPUSCULAR HEMOGLOB 29.5 pg (26.0-34.0); MEAN CORPUSCULAR VOLUME 88.3 fL (80-100); MEAN PLATELET VOLUME 10.2 fL (9.2-13.0); NUCLEATED RED BLOOD CELLS 13.9 /100WBC (0-0); PLATELET COUNT 46 10/3/uL (150-400); RBC DISTRIBUTION WIDTH 17.8 % (12.0-16.0); RED CELL COUNT 2.81 10/6/uL (4.0-5.6); WHITE BLOOD CELLS 22.2 10/3/uL (4.5-10.5)
[2017-03-29 10:15] LABS: MANUAL DIFF YES %
[2017-03-29 10:23] LABS: ALBUMIN 1.9 G/DL (3.5-5.0); BUN (BLOOD UREA NITROGEN) 6 MG/DL (6-23); CALCIUM, SERUM 8.2 MG/DL (8.5-10.4); CHLORIDE, SERUM 102 MMOL/L (96-112); CO2 (CARBON DIOXIDE) 22 MMOL/L (24-34); CREATININE 0.54 MG/DL (0.55-1.02); DIRECT BILIRUBIN 5.8 MG/DL (0.0-0.4); GFR AFRICAN AMERICAN 118 ML/MIN (>=60); GFR NON AFRICAN AMERICAN 102 ML/MIN (>=60); POTASSIUM, SERUM 4.1 MMOL/L (3.5-5.3); SGOT(AST) 137 U/L (5-40); SGPT(ALT) 45 U/L (5-65); SODIUM, SERUM 141 MMOL/L (135-148); TOTAL PROTEIN 4.5 G/DL (6.0-8.5)
[2017-03-29 10:25] LABS: ALKALINE PHOSPHATASE 241 U/L (45-117); GLUCOSE, SERUM 127 MG/DL (60-99); INDIRECT BILIRUBIN(NOT ORDER) 0.9 MG/DL (0.1-0.9); TOTAL BILIRUBIN 6.7 MG/DL (0-1.2)
[2017-03-29 10:32] LABS: BAND NEUTROPHILS 35 %; IMMATURE GRANS ABSOLUTE (CALC) 2.44 10/3/uL (0.0-0.11); LYMPHOCYTES 11 %; LYMPHOCYTES ABSOLUTE (CALC) 2.44 10/3/uL (0.67-4.30); METAMYELOCYTES 10 %; MYELOCYTES 1 %; NEUTROPHILS ABSOLUTE (CALC) 17.32 10/3/uL (2.02-8.40); SEGMENTED NEUTROPHIL (0) 43 %; TOTAL NUCLEATED CELLS 100
[2017-03-29 10:33] LABS: ANISOCYTOSIS 1+ (5-10/OIF) (0-5/OIF); POLYCHROMASIA 1+ (2-5/OIF) (0-1/OIF); TOXIC GRANULATION 2+
[2017-03-29 11:41] LABS: BE (BASE EXCESS) -9.7 MEQ/L (0 +/- 2.5); BIPAP 30/0 cm.H2O; CARBOXYHEMOGLOBIN 0.4 % (0-3); HCO3 (ACTUAL BICARBONATE) 18.1 MEQ/L (23-27); HEMOBLOGIN CONTENT 9.9 G/DL (12-16); INSTRUMENT SERIAL # 11843; METHEMOGLOBIN 0.2 % (0-3); MODE APRV; O2 CONTENT 12.6 VOL% (18-24); PCO2 (CO2 TENSION) 49 MMHG (35-45); PO2 (O2 TENSION) 74 MMHG (79-93); SAMPLE Arterial; pH 7.19 (7.37-7.43)
[2017-03-29 16:01] LABS: HEMATOCRIT 25.2 % (36.0-48.0); HEMOGLOBIN 8.5 g/dL (12.0-16.0); MEAN CORPUS HGB CONC 33.7 g/dL (32.0-36.0); MEAN CORPUSCULAR HEMOGLOB 29.5 pg (26.0-34.0); MEAN CORPUSCULAR VOLUME 87.5 fL (80-100); NUCLEATED RED BLOOD CELLS 10.9 /100WBC (0-0); RBC DISTRIBUTION WIDTH 17.7 % (12.0-16.0); RED CELL COUNT 2.88 10/6/uL (4.0-5.6)
[2017-03-29 16:01] LABS: BE (BASE EXCESS) -6.2 MEQ/L (0 +/- 2.5); CARBOXYHEMOGLOBIN 0.3 % (0-3); HCO3 (ACTUAL BICARBONATE) 19.9 MEQ/L (23-27); HEMOBLOGIN CONTENT 9.2 G/DL (12-16); INSTRUMENT SERIAL # 35151; METHEMOGLOBIN 0.5 % (0-3); O2 CONTENT 12.1 VOL% (18-24); OPERATOR ID 14472; PCO2 (CO2 TENSION) 42 MMHG (35-45); PO2 (O2 TENSION) 77 MMHG (79-93); SAMPLE Arterial
[2017-03-29 16:02] LABS: DEVICE P-H/L 30/0-- T-H/L 2; MODE APRV
[2017-03-29 16:12] LABS: BUN (BLOOD UREA NITROGEN) 5 MG/DL (6-23); CALCIUM, SERUM 7.7 MG/DL (8.5-10.4); CHLORIDE, SERUM 101 MMOL/L (96-112); CO2 (CARBON DIOXIDE) 21 MMOL/L (24-34); CREATININE 0.42 MG/DL (0.55-1.02); GFR AFRICAN AMERICAN 128 ML/MIN (>=60); GFR NON AFRICAN AMERICAN 111 ML/MIN (>=60); GLUCOSE, SERUM 130 MG/DL (60-99); POTASSIUM, SERUM 3.8 MMOL/L (3.5-5.3); SODIUM, SERUM 140 MMOL/L (135-148)
[2017-03-29 16:16] LABS: MANUAL DIFF YES %; PLATELET COUNT 32 10/3/uL (150-400); WHITE BLOOD CELLS 26.1 10/3/uL (4.5-10.5)
[2017-03-29 16:43] LABS: ANISOCYTOSIS 1+ (5-10/OIF) (0-5/OIF); BAND NEUTROPHILS 34 %; IMMATURE GRANS ABSOLUTE (CALC) 2.87 10/3/uL (0.0-0.11); LYMPHOCYTES 9 %; LYMPHOCYTES ABSOLUTE (CALC) 2.35 10/3/uL (0.67-4.30); METAMYELOCYTES 9 %; MONOCYTES 1 %; MONOCYTES ABSOLUTE (CALC) 0.26 10/3/uL (0.21-1.20); MYELOCYTES 2 %; NEUTROPHILS ABSOLUTE (CALC) 20.62 10/3/uL (2.02-8.40); SEGMENTED NEUTROPHIL (0) 45 %; TOTAL NUCLEATED CELLS 100; TOXIC GRANULATION 2+
[2017-03-29 16:44] LABS: MACROCYTES 1+ (5-10/OIF) (0-5/OIF); SCHISTOCYTES OCC (0-2/OIF)
[2017-03-29 22:52] LABS: BE (BASE EXCESS) -16.4 MEQ/L (0 +/- 2.5); CARBOXYHEMOGLOBIN 1.1 % (0-3); HCO3 (ACTUAL BICARBONATE) 12.5 MEQ/L (23-27); INSTRUMENT SERIAL # 8083; METHEMOGLOBIN 0.1 % (0-3); PCO2 (CO2 TENSION) 43 MMHG (35-45); PO2 (O2 TENSION) 90 MMHG (79-93); pH 7.08 (7.37-7.43)
[2017-03-29 22:53] LABS: HEMOBLOGIN CONTENT 8.6 G/DL (12-16); MODE APRV; O2 CONTENT 11.3 VOL% (18-24); OPERATOR ID 13861; SAMPLE Arterial
[2017-03-29 23:03] LABS: HEMATOCRIT 25.7 % (36.0-48.0); HEMOGLOBIN 8.2 g/dL (12.0-16.0); MEAN CORPUSCULAR HEMOGLOB 28.9 pg (26.0-34.0); MEAN PLATELET VOLUME 10.2 fL (9.2-13.0); NUCLEATED RED BLOOD CELLS 11.2 /100WBC (0-0); RBC DISTRIBUTION WIDTH 18.1 % (12.0-16.0); RED CELL COUNT 2.84 10/6/uL (4.0-5.6)
[2017-03-29 23:06] LABS: MEAN CORPUS HGB CONC 31.9 g/dL (32.0-36.0); MEAN CORPUSCULAR VOLUME 90.5 fL (80-100); PLATELET COUNT 28 10/3/uL (150-400)
[2017-03-29 23:08] LABS: MANUAL DIFF YES %
[2017-03-29 23:10] LABS: BUN (BLOOD UREA NITROGEN) 5 MG/DL (6-23); CALCIUM, SERUM 7.6 MG/DL (8.5-10.4); CHLORIDE, SERUM 101 MMOL/L (96-112); CO2 (CARBON DIOXIDE) 17 MMOL/L (24-34); CREATININE 0.41 MG/DL (0.55-1.02); GFR AFRICAN AMERICAN 129 ML/MIN (>=60); GFR NON AFRICAN AMERICAN 112 ML/MIN (>=60); POTASSIUM, SERUM 4.4 MMOL/L (3.5-5.3); SODIUM, SERUM 139 MMOL/L (135-148)
[2017-03-29 23:11] LABS: GLUCOSE, SERUM 70 MG/DL (60-99)
[2017-03-29 23:34] LABS: ANISOCYTOSIS 1+ (5-10/OIF) (0-5/OIF); BAND NEUTROPHILS 26 %; IMMATURE GRANS ABSOLUTE (CALC) 1.24 10/3/uL (0.0-0.11); LYMPHOCYTES 2 %; LYMPHOCYTES ABSOLUTE (CALC) 0.62 10/3/uL (0.67-4.30); METAMYELOCYTES 7 %; MONOCYTES 5 %; MONOCYTES ABSOLUTE (CALC) 1.55 10/3/uL (0.21-1.20); MYELOCYTES 3 %; NEUTROPHILS ABSOLUTE (CALC) 27.59 10/3/uL (2.02-8.40); RBC MORPHOLOGY ABN (NORMAL); SEGMENTED NEUTROPHIL (0) 56 %; TOTAL NUCLEATED CELLS 100
[2017-03-30 04:15] LABS: BUN (BLOOD UREA NITROGEN) 4 MG/DL (6-23); CALCIUM, SERUM 7.5 MG/DL (8.5-10.4); CHLORIDE, SERUM 101 MMOL/L (96-112); CREATININE 0.46 MG/DL (0.55-1.02); GFR AFRICAN AMERICAN 124 ML/MIN (>=60); GFR NON AFRICAN AMERICAN 107 ML/MIN (>=60); GLUCOSE, SERUM 57 MG/DL (60-99); PHOSPHORUS, SERUM 3.4 MG/DL (2.5-4.5); POTASSIUM, SERUM 4.7 MMOL/L (3.5-5.3); SODIUM, SERUM 141 MMOL/L (135-148)
[2017-03-30 04:17] LABS: CO2 (CARBON DIOXIDE) 13 MMOL/L (24-34)
[2017-03-30 04:24] LABS: HEMATOCRIT 25.9 % (36.0-48.0); HEMOGLOBIN 8.3 g/dL (12.0-16.0); MEAN CORPUSCULAR HEMOGLOB 29.9 pg (26.0-34.0); MEAN CORPUSCULAR VOLUME 93.2 fL (80-100); NUCLEATED RED BLOOD CELLS 13.3 /100WBC (0-0); RBC DISTRIBUTION WIDTH 18.4 % (12.0-16.0); RED CELL COUNT 2.78 10/6/uL (4.0-5.6); WHITE BLOOD CELLS 29.7 10/3/uL (4.5-10.5)
[2017-03-30 04:25] LABS: PLATELET COUNT 28 10/3/uL (150-400)
[2017-03-30 04:26] LABS: MANUAL DIFF YES %
[2017-03-30 04:28] LABS: ALLENS TEST Pos; BE (BASE EXCESS) -19.3 MEQ/L (0 +/- 2.5); CARBOXYHEMOGLOBIN 1.3 % (0-3); HCO3 (ACTUAL BICARBONATE) 10.8 MEQ/L (23-27); HEMOBLOGIN CONTENT 8.3 G/DL (12-16); INSTRUMENT SERIAL # 8083; METHEMOGLOBIN 0.3 % (0-3); MODE APRV; O2 CONTENT 10.3 VOL% (18-24); OPERATOR ID 35390; PCO2 (CO2 TENSION) 44 MMHG (35-45); PO2 (O2 TENSION) 72 MMHG (79-93); SAMPLE Arterial
[2017-03-30 04:48] LABS: ANISOCYTOSIS 1+ (5-10/OIF) (0-5/OIF); BAND NEUTROPHILS 24 %; IMMATURE GRANS ABSOLUTE (CALC) 5.35 10/3/uL (0.0-0.11); LYMPHOCYTES 3 %; LYMPHOCYTES ABSOLUTE (CALC) 0.89 10/3/uL (0.67-4.30); METAMYELOCYTES 8 %; MONOCYTES 1 %; MYELOCYTES 10 %; NEUTROPHILS ABSOLUTE (CALC) 23.17 10/3/uL (2.02-8.40); SEGMENTED NEUTROPHIL (0) 54 %; TOTAL NUCLEATED CELLS 100
[2017-03-30 04:49] LABS: STOMATOCYTES 1+ (3-10/OIF) (0-2/OIF)
[2017-03-30 04:50] LABS: POLYCHROMASIA 1+ (2-5/OIF) (0-1/OIF); PROCALCITONIN 0.77 ng/mL (<0.5)
[2017-03-30 05:02] LABS: PATH REVIEW YES
[2017-03-30 09:56] LABS: HEMOGLOBIN 7.1 g/dL (12.0-16.0); MEAN CORPUSCULAR HEMOGLOB 30.5 pg (26.0-34.0); MEAN CORPUSCULAR VOLUME 95.3 fL (80-100); MEAN PLATELET VOLUME 10.1 fL (9.2-13.0); NUCLEATED RED BLOOD CELLS 18.4 /100WBC (0-0); RBC DISTRIBUTION WIDTH 18.9 % (12.0-16.0); RED CELL COUNT 2.33 10/6/uL (4.0-5.6)
[2017-03-30 09:58] LABS: HEMATOCRIT 22.2 % (36.0-48.0); MANUAL DIFF YES %; PLATELET COUNT 29 10/3/uL (150-400); WHITE BLOOD CELLS 29.7 10/3/uL (4.5-10.5)
[2017-03-30 09:59] LABS: BUN (BLOOD UREA NITROGEN) 5 MG/DL (6-23); CALCIUM, SERUM 7.2 MG/DL (8.5-10.4); CHLORIDE, SERUM 101 MMOL/L (96-112); CREATININE 0.39 MG/DL (0.55-1.02); GFR AFRICAN AMERICAN 131 ML/MIN (>=60); GFR NON AFRICAN AMERICAN 113 ML/MIN (>=60); GLUCOSE, SERUM 56 MG/DL (60-99); POTASSIUM, SERUM 5.4 MMOL/L (3.5-5.3); SODIUM, SERUM 140 MMOL/L (135-148)
[2017-03-30 10:00] LABS: CO2 (CARBON DIOXIDE) 12 MMOL/L (24-34)
[2017-03-30 10:25] LABS: ANISOCYTOSIS 1+ (5-10/OIF) (0-5/OIF); BAND NEUTROPHILS 25 %; IMMATURE GRANS ABSOLUTE (CALC) 7.13 10/3/uL (0.0-0.11); LYMPHOCYTES 2 %; LYMPHOCYTES ABSOLUTE (CALC) 0.59 10/3/uL (0.67-4.30); METAMYELOCYTES 11 %; MONOCYTES 3 %; MONOCYTES ABSOLUTE (CALC) 0.89 10/3/uL (0.21-1.20); MYELOCYTES 13 %; NEUTROPHILS ABSOLUTE (CALC) 21.09 10/3/uL (2.02-8.40); SEGMENTED NEUTROPHIL (0) 46 %; TOTAL NUCLEATED CELLS 100
[2017-03-30 10:26] LABS: HYPOCHROMIA 1+ (3-10/OIF) (0-2/OIF); POLYCHROMASIA 1+ (2-5/OIF) (0-1/OIF)
[2017-03-30 10:41] LABS: PATH REVIEW SEE PATHOLOGY REPORT
== END 2017-03-30 11:13 | disposition expired | DRG 853 ==
LOC: MIC 13:58
PROVIDERS: Hospitalist; Internal Medicine; Internal Medicine Critical Care Medicine; Internal Medicine Nephrology; Internal Medicine Pulmonary Disease; Transplant Surgery
PROC: 30233K1 Transfusion of Nonautologous Frozen Plasma into Peripheral Vein, Percutaneous Approach (ICD-10-PCS; 2017-03-22)
PROC: 0BCB8ZZ Extirpation of Matter from Left Lower Lobe Bronchus, Via Natural or Artificial Opening Endoscopic (ICD-10-PCS; 2017-03-22)
PROC: 03HY32Z Insertion of Monitoring Device into Upper Artery, Percutaneous Approach (ICD-10-PCS; 2017-03-22)
PROC: 4A133B1 Monitoring of Arterial Pressure, Peripheral, Percutaneous Approach (ICD-10-PCS; 2017-03-22)
PROC: 30233N1 Transfusion of Nonautologous Red Blood Cells into Peripheral Vein, Percutaneous Approach (ICD-10-PCS; 2017-03-22)
PROC: 0DTE0ZZ Resection of Large Intestine, Open Approach (ICD-10-PCS; principal; 2017-03-22 17:00)
PROC: 5A1955Z Respiratory Ventilation, Greater than 96 Consecutive Hours (ICD-10-PCS; 2017-03-26)
PROC: 0D1B0Z4 Bypass Ileum to Cutaneous, Open Approach (ICD-10-PCS; 2017-03-26)
PROC: 0DBB0ZZ Excision of Ileum, Open Approach (ICD-10-PCS; 2017-03-26)
PROC: 05HM33Z Insertion of Infusion Device into Right Internal Jugular Vein, Percutaneous Approach (ICD-10-PCS; 2017-03-27)
PROC: B543ZZA Ultrasonography of Right Jugular Veins, Guidance (ICD-10-PCS; 2017-03-27)
PROC: 5A1D00Z (ICD-10-PCS; 2017-03-27)
PROC: 30233M1 Transfusion of Nonautologous Plasma Cryoprecipitate into Peripheral Vein, Percutaneous Approach (ICD-10-PCS; 2017-03-27)
PROC: 30233R1 Transfusion of Nonautologous Platelets into Peripheral Vein, Percutaneous Approach (ICD-10-PCS; 2017-03-28)
DX: A41.9 Sepsis, unspecified organism (principal); R65.21 Severe sepsis with septic shock; J96.01 Acute respiratory failure with hypoxia; N17.0 Acute kidney failure with tubular necrosis; D65 Disseminated intravascular coagulation [defibrination syndrome]; K65.9 Peritonitis, unspecified; G93.40 Encephalopathy, unspecified; J98.2 Interstitial emphysema; K63.1 Perforation of intestine (nontraumatic); K51.90 Ulcerative colitis, unspecified, without complications; D62 Acute posthemorrhagic anemia; I31.9 Disease of pericardium, unspecified; E46 Unspecified protein-calorie malnutrition; E87.2 Acidosis; R73.9 Hyperglycemia, unspecified; I10 Essential (primary) hypertension; F32.9 Major depressive disorder, single episode, unspecified; E03.9 Hypothyroidism, unspecified; K76.0 Fatty (change of) liver, not elsewhere classified; I48.0 Paroxysmal atrial fibrillation; R00.0 Tachycardia, unspecified; I99.8 Other disorder of circulatory system; I70.209 Unspecified atherosclerosis of native arteries of extremities, unspecified extremity; Z85.41 Personal history of malignant neoplasm of cervix uteri; Z83.79 Family history of other diseases of the digestive system; Z82.49 Family history of ischemic heart disease and other diseases of the circulatory system; Z88.1 Allergy status to other antibiotic agents; Z88.5 Allergy status to narcotic agent; Z90.49 Acquired absence of other specified parts of digestive tract; Z98.890 Other specified postprocedural states; Z79.899 Other long term (current) drug therapy; Z79.52 Long term (current) use of systemic steroids; Z51.5 Encounter for palliative care
CPT/HCPCS: 31720; 36415; 36569; 36600; 71010; 80048; 80053; 80069; 80076; 80202; 81001; 82140; 82247; 82248; 82330; 82533; 82550; 82607; 82728; 82746; 82803; 82805; 82947; 82962; 83036; 83540; 83550; 83605; 83615; 83690; 83735; 84100; 84132; 84134; 84145; 84295; 84443; 84478; 84484; 85014; 85018; 85025; 85049; 85379; 85384; 85610; 85730; 86022; 86850; 86900; 86901; 86920; 87040; 87070; 87205; 87641; 88307; 92950; 93005; 94003; 94640; 95816; A9270-GY; C1751; C1752; C8929; C9113; J0282; J0610; J1205; J1720; J2248; J2250; J2543; J3010; J3370; J3411; J3475; P9012; P9016; P9017; P9035; P9045; P9047; P9059; Q9957